=== PATIENT | female | born 1960 | race Caucasian/White ===

== ENCOUNTER 2023-06-06 12:23 | Inpatient (IN) | payer MEDICARE, SELFPAY ==
[2023-06-06] VITALS (63 sets, daily range): BP systolic 91–130; BP diastolic 54–95; PULSE 68–140; RESP 1–38; TEMP 36.6–36.9; O2SAT 60–100; BMI 47.6
--- NOTE | 2023-06-06 12:30 | XRR_ITS ---
PROCEDURE INFORMATION: Exam: XR Chest Exam date and time: 06/06/2023 12:38 PM Age: 63 years old Clinical indication: Cough and dyspnea; Additional info: Dyspnea/cough TECHNIQUE: Imaging protocol: Radiologic exam of the chest. Views: 1 view. COMPARISON: No relevant prior studies available. FINDINGS: Lungs: Unremarkable. No consolidation. Pleural spaces: Unremarkable. No pleural effusion. No pneumothorax. Heart/Mediastinum: Mild cardiomegaly. Diaphragm: There is eventration of the right hemidiaphragm. Bones/joints: Unremarkable. XR/XR chest 1V portable [id number] IMPRESSION: No acute findings. Mild cardiomegaly
[2023-06-06 13:01] LABS: Basophils % 0.1 %; Eosinophils # 0.1 10^3/uL (0.0-0.8); Eosinophils % 0.7 %; Hematocrit 39.7 % (36-47); Lymphocytes # 0.9 10^3/uL (0.8-4.8); Lymphocytes % 8.6 %; Mean Corpuscular HGB Conc 25.4 g/dL (30-55); Mean Corpuscular Hemoglobin 27.2 pg (27-33); Mean Corpuscular Volume 106.7 fl (85-98); Mean Platelet Volume 10.9 fL (7.4-10.4); Monocytes # 0.6 10^3/uL (0.2-0.9); Monocytes % 5.9 %; Neutrophils # 8.39 10^3/uL (1.8-7.7); Nucleated Red Blood Cells % 0 %; Platelet Count 218 10^3/cmm (157-399); Red Blood Count 3.72 10^6/uL (3.85-5.65); Red Cell Distribution Width 16.2 % (12.1-15.1); White Blood Count 9.99 10^3/uL (3.29-11.43)
[2023-06-06] MEDS: ipratropium-albuterol 3 mL Neb INHALATION ×2 (13:06→13:42)
[2023-06-06 13:12] LABS: ABG PH Result 7.33 (7.35-7.45); Arterial Blood Gas Hematocrit 31.2 % (37-47); Base Excess ABG 26.5 mmol/L (-2.0-2.0); Blood Gas Allen Test Pos; Blood Gas Sample Type Arterial; Carboxyhemoglobin 2.5 %THgb (0.4-20.1); HCO3 ABG 57.2 mmol/L (22-26); HGB O2 Sat 88.9 % (95-100); Ionized Calcium Level - ABG 1.2 mmol/L (1.1-1.4); Methemoglobin 0.1 % (0.4-1.5); Oxygen Saturation ABG 91.3; PO2 ABG 59.7 mmHg (80.0-100.0); Potassium Level - ABG 3.8 mmol/L (3.5-5.0); Total Hemoglobin 10.2 g/dL (12-16)
[2023-06-06 13:13] LABS: Alveolar-Arterial Oxygen Gradi 5.7 mmHg (5-10); Blood Gas Operator Identificat MONRO; Blood Gas Sample Site Brachial, left; Oxygen Device NC; PO2 FiO2 Ratio Arterial Blood 0
[2023-06-06 13:19] LABS: Alanine Aminotransferase 12 U/L (0-33); Albumin Level 3.6 g/dL (3.5-5.2); Alkaline Phosphatase 88 U/L (35-105); Aspartate Amino Transferase 17 U/L (0-32); Blood Urea Nitrogen 16 mg/dL (8-23); Calcium 9.6 mg/dL (8.5-10.5); Chloride 88 mmol/L (98-107); Glomerular Filtration Rate 101.3 mL/min (90-130); Glucose 115 mg/dL (65-115); Osmolality Calculated 296 mOsm/kg (285-295); Potassium 4.2 mmol/L (3.5-5.1); Sodium 142 mmol/L (136-145); Total Bilirubin 0.5 mg/dL (0.15-1.2); Total Protein 6.6 g/dL (6.6-8.7)
--- NOTE | 2023-06-06 13:19 | W.ED.ARRPALP ---
HPI - Arrhythmia/Palpitations General: Chief Complaint: Weakness Stated Complaint: Weakness, SOB Time Seen by Provider: 06/06/23 12:29 Source: patient Mode of arrival: EMS History of Present Illness: 63-year-old female presents emergency [facility] weakness shortness of breath. She had been dozes off Lethargic at the [facility] arrival here she is difficult to arouse and off during the course of conversation. She denies chest or abdominal pain. She has been sick recently. COVID testing done at the [facility] was negative. She is chronically on oxygen they have been increasing in the last 2 days. Associated symptoms: Reports cough and short of breath Review of Systems General: Reports: ROS unobtainable due to mental status Physical Exam Const: GENERAL APPEARANCE: cooperative and comfortable ORIENTATION/CONSCIOUSNESS: Yes awake, Yes oriented to person, Yes oriented to place and Yes oriented to time HENMT: COMMON NORMALS: normocephalic, atraumatic and hearing grossly normal bilaterally HEAD & SCALP: normocephalic and atraumatic Resp: EFFORT & INSPECTION: Yes abnormal respiratory pattern, Yes respiratory distress and Yes decreased respiratory effort AUSCULTATION: rales and wheezes Cardio: COMMON NORMALS: regular rate, regular rhythm and No murmurs present (Cardio) RATE: regular rate RHYTHM: regular rhythm GI: COMMON NORMALS: Soft to palpation and No hepatosplenomegaly present AUSCULTATION: Yes normoactive bowel sounds PALPATION: Yes Soft to palpation, No Tenderness to palpation present (GI), No Guarding due to palpation present (GI) and Yes No hepatosplenomegaly present Extremity: COMMON NORMALS: normal to inspection, capillary refill normal, no clubbing, cyanosis or edema, no calf tenderness and no pedal edema Neuro: SENSORIUM/ORIENTATION: Yes oriented to person, Yes oriented to place and Yes oriented to time Skin: COMMON NORMALS: no rashes or lesions noted GENERAL SKIN EXAM: no rashes or lesions noted Course Vital Signs: Vital signs: Vital Signs Pulse Rate 111 H 06/06/23 15:25 Respiratory Rate 16 06/06/23 15:25 Blood Pressure 126/75 06/06/23 15:25 Pulse Oximetry 90 06/06/23 15:25 Oxygen Delivery Me thod BiPAP 06/06/23 15:15 Oxygen Flow Rate 3 06/06/23 13:06 Fraction of Inspir ed Oxygen 40 06/06/23 15:15 MDM - Arrhythmia/Palpitations Medical Decision Making Acute on chronic hypercapnic respiratory failure with A-fib with labs and imaging reviewed as found in the chart. RVR. Patient lists being on Coumadin but her INR is normal. She is quite lethargic initially improved slightly after an hour on BiPAP and her PCO2 went from 108 down to 78. PO2 however is still low we increased her FiO2. We have treated her A-fib with Cardizem. Normally she is on sotalol. Believe she has a right lower lobe pneumonia as well subtle opacity on her chest x-ray. Will cover her with IV antibiotics. Discussed with hospitalist orders written Medical Records I reviewed the patient's medical records. Lab Data I reviewed the patient's lab results. 06/06/23 12:55 06/06/23 12:55 Radiology Impressions Chest X-Ray 06/06/23 12:30 IMPRESSION: No acute findings. Mild cardiomegaly Laboratory Results WBC 9.99 10^3/uL (3.29-11.43) 06/06/23 12:55 RBC 3.72 10^6/uL (3.85-5.65) L 06/06/23 12:55 Hgb 10.10 g/dL (11.27-16.99) L 06/06/23 12:55 Hct 39.7 % (36-47) 06/06/23 12:55 MCV 106.7 fl (85-98) H 06/06/23 12:55 MCH 27.2 pg (27-33) 06/06/23 12:55 MCHC 25.4 g/dL (30-55) L 06/06/23 12:55 RDW 16.2 % (12.1-15.1) H 06/06/23 12:55 Plt Count 218 10^3/cmm (157-399) 06/06/23 12:55 MPV 10.9 fL (7.4-10.4) H 06/06/23 12:55 Neut % (Auto) 84.0 % 06/06/23 12:55 Lymph % (Auto) 8.6 % 06/06/23 12:55 [place] % (Auto) 5.9 % 06/06/23 12:55 Eos % (Auto) 0.7 % 06/06/23 12:55 Baso % (Auto) 0.1 % 06/06/23 12:55 Neut # (Auto) 8.39 10^3/uL (1.8-7.7) H 06/06/23 12:55 Lymph # (Auto) 0.9 10^3/uL (0.8-4.8) 06/06/23 12:55 [place] # (Auto) 0.6 10^3/uL (0.2-0.9) 06/06/23 12:55 Eos # (Auto) 0.1 10^3/uL (0.0-0.8) 06/06/23 12:55 Baso # (Auto) 0.0 10^3/uL (0.0-0.1) 06/06/23 12:55 Nucleated RBC % (auto) 0 % 06/06/23 12:55 Nucleated RBCs # 0.0 /100WBC 06/06/23 12:55 PT 14.30 SECONDS (12.1-14.9) 06/06/23 12:55 INR 1.07 (0.8-1.2) 06/06/23 12:55 D-Dimer 0.43 ug/mLFEU (0-0.59) 06/06/23 12:55 Specimen Type Arterial 06/06/23 14:36 Sample Site Brachial, right 06/06/23 14:36 ABG pH 7.46 (7.35-7.45) H 06/06/23 14:36 ABG pCO2 78.9 mmHg (35-45) H* 06/06/23 14:36 ABG pO2 49.2 mmHg (80.0-100.0) L 06/06/23 14:36 ABG PO2/FiO2 Ratio 0 06/06/23 14:36 ABG HCO3 55.6 mmol/L (22-26) H 06/06/23 14:36 ABG O2 Saturation 89.4 06/06/23 14:36 ABG Base Excess 27.4 mmol/L (-2.0-2.0) H 06/06/23 14:36 [place]ro Test Pos 06/06/23 14:36 A-a O2 Gradient 9.5 mmHg (5-10) 06/06/23 14:36 Hematocrit 32.0 % (37-47) L 06/06/23 14:36 Hgb O2 Saturation 87.0 % (95-100) L 06/06/23 14:36 Carboxyhemoglobin 2.5 %THgb (0.4-20.1) 06/06/23 14:36 Methemoglobin 0.2 % (0.4-1.5) L 06/06/23 14:36 Total Hemoglobin 10.4 g/dL (12-16) L 06/06/23 14:36 Sodium 142.0 mmol/L (131-143) 06/06/23 14:36 Potassium 4.0 mmol/L (3.5-5.0) 06/06/23 14:36 Glucose 108.0 mg/dL (70-115) 06/06/23 14:36 Ionized Calcium 1.2 mmol/L (1.1-1.4) 06/06/23 14:36 O2 Delivery Device Bipap 06/06/23 14:36 O2 Liters/Min 3.0 % 06/06/23 13:00 FiO2 30.0 % 06/06/23 14:36 Tidal Volume 0.50 06/06/23 14:36 PEEP 10.0 cmH20 06/06/23 14:36 Social Service Technician ID [place] 06/06/23 14:36 Sodium 142 mmol/L (136-145) 06/06/23 12:55 Potassium 4.2 mmol/L (3.5-5.1) 06/06/23 12:55 Chloride 88 mmol/L (98-107) L 06/06/23 12:55 Carbon Dioxide > 54 mmol/L (22-29) H* 06/06/23 12:55 Anion Gap 4.2 (5-19) L 06/06/23 12:55 BUN 16 mg/dL (8-23) 06/06/23 12:55 Creatinine 0.6 mg/dL (0.5-0.9) 06/06/23 12:55 GFR Calculation 101.3 mL/min (90-130) 06/06/23 12:55 Glucose 115 mg/dL (65-115) 06/06/23 12:55 Calculated Osmolality 296 mOsm/kg (285-295) H 06/06/23 12:55 Lactic Acid 0.7 mmol/L (0.5-2.2) 06/06/23 12:55 Calcium 9.6 mg/dL (8.5-10.5) 06/06/23 12:55 Total Bilirubin 0.5 mg/dL (0.15-1.2) 06/06/23 12:55 AST 17 U/L (0-32) 06/06/23 12:55 ALT 12 U/L (0-33) 06/06/23 12:55 Alkaline Phosphatase 88 U/L (35-105) 06/06/23 12:55 Troponin T Baseline 13 ng/L (0-10) H 06/06/23 12:55 NT-Pro-B Natriuret Pep 4002 pg/mL (0-125) H 06/06/23 12:55 Total Protein 6.6 g/dL (6.6-8.7) 06/06/23 12:55 Albumin 3.6 g/dL (3.5-5.2) 06/06/23 12:55 Globulin 3.0 g/dL (1.3-4.6) 06/06/23 12:55 Procalcitonin 0.02 ng/mL (0-0.5) 06/06/23 12:55 All radiology interpretation(s) finalized by discharge Discharge Plan Discharge Patient Disposition: Admitted As Inpatient Clinical Impression: Acute hypoxic on chronic hypercapnic respiratory failure, Anemia, Pneumonia Condition: Stable Prescriptions: No Action sotalol 160 mg tablet 160 mg PO Q12H atorvastatin 40 mg tablet 40 mg PO BEDTIME bupropion HCl 150 mg tablet sustained-release 12 hr 150 mg PO BID albuterol sulfate 2.5 mg /3 mL (0.083 %) solution for nebulization 2.5 mg inhalation Q6H PRN (Reason: Shortness Of Breath) warfarin 5 mg tablet 5 mg PO DAILY bumetanide 1 mg Tablet 2 mg PO BID PRN (Reason: Edema) ipratropium bromide 0.02 % solution See Rx Instructions .ROUTE .COMPLEX Rx Instructions: INHALE 1 VIAL IN NEBULIZER EVERY 12 HOURS NEEDED FOR SHORTNESS OF BREATH Referrals: Kilo Dunham [Primary Care Provider] - Coding Level of Care Code ED Accounting Representative for [facility] Sara
[2023-06-06] MEDS: dexamethasone 10 mg/mL INJ IM (13:21)
--- NOTE | 2023-06-06 13:25 | PC.PHAR ---
pt unable to verify medications-pt brought in medication bottles-pt brought in bumetanide 1mg take 2 tabs (2mg) bid rx bottle dated 09/21/2020-shawna states they filled tizanidine 2mg take 2 tabs (4mg) po hs filled on 02/02/23 90d/s and gabapentin 300mg tid filled 02/02/23 30d/s shawna states they have refills but states not filled for the pt recently-ext shows diltiazem cd 180mg/24 cap filled 02/04/23 90d/s #90 from [facility] pt didnt bring that medication bottle in-medications entered are from med bottles pt brought in and ext med history showing the neb meds-
[2023-06-06 13:45] LABS: Anion Gap 4.2 (5-19)
[2023-06-06] MEDS: dilTIAZem 5 mg/mL SDV 5 mL 10 MG IVP (13:57)
[2023-06-06] MEDS: dilTIAZem 100 MG in sodium chloride 0.9% (add-van) 100 ML IV (14:14)
[2023-06-06 14:20] LABS: NT Pro B Type Natriuretic Pept 4002 pg/mL (0-125)
--- NOTE | 2023-06-06 14:40 | USCV_ITS ---
Colette Hernandez Age: 63 Gender: F : 1960 Exam Date: 06/06/2023 18:47 Ordering Phys: Temo Benavides MD Technologist: MORRIS [place] [facility] [place]: chronic O2 dependent [facility] patient presenting our ER with hypoxia, not oriented to time or place. no hx available. BP: 128 / 87 HR: 105 Rhythm: Atrial fibrillation Technical Quality: Poor MEASUREMENTS (Male / Female) Normal Values 2D ECHO LV Diastolic Diameter PLAX 5.2 cm 4.2 - 5.9 / 3.9 - 5.3 cm LV Systolic Diameter PLAX 4.2 cm IVS Diastolic Thickness 0.8 cm 0.6 - 1.0 / 0.6 - 0.9 cm IVS Systolic Thickness 1.1 cm LVPW Diastolic Thickness 1.3 cm 0.6 - 1.0 / 0.6 - 0.9 cm LVPW Systolic Thickness 1.3 cm LVOT Diameter 2.4 cm LV Ejection Fraction 2D Teich 39.4 % LV Ejection Fraction MOD 2C 30.8 % LV Ejection Fraction 2C AL 32.8 % LA Diameter 6.6 cm LA Width 6.2 cm LA Height 6.4 cm RA Width 5.3 cm RA Height 7.7 cm Aorta at Sinotubular Diameter 3.5 cm IVC Diameter 2.1 cm M-MODE Aortic Annulus Diameter 3.0 cm LA Ao Ratio MM 2.1 MV E Point Septal Separation 1.3 cm DOPPLER AV Peak Velocity 106.0 cm/s LVOT Peak Velocity 84.0 cm/s AV Area Cont Eq vti 3.1 cm squared AV Area Cont Eq pk 3.5 cm squared MV Area PHT 5.4 cm squared MV E' Velocity 51.0 cm/s Mitral E to MV E' Ratio 12.4 Mitral E to LV E' Lateral Ratio 14.1 Mitral E to LV E' Septal Ratio 11.1 TV Peak E Velocity 67.0 cm/s PV Peak Velocity 104.0 cm/s RV Acceleration Time 0.1 s RV Ejection Time 0.3 s RV AcT/ET 0.5 FINDINGS Left Ventricle Mildly increased left ventricular cavity size. Severely reduced LV systolic function. Estimated LVEF 30 to 35% with severe hypokinesis of anterior, anteroseptal and apical hypokinesis. Mild hypokinesis of anterolateral wall as well. Grade 2 diastolic dysfunction. Right Ventricle Mildly dilated right ventricle with mildly reduced RV systolic function. Right Atrium Moderately dilated Left Atrium Severely dilated Mitral Valve Thickened mitral valve. Mild mitral valve regurgitation. Aortic Valve Thickened aortic valve. No aortic valve stenosis. Trace aortic valve regurgitation. Tricuspid Valve Tricuspid valve not well visualized. Tricuspid regurgitation and gradient across the mitral valve could not be assessed properly. Pulmonic Valve Pulmonic valve not well visualized. Mild pulmonary valve regurgitation. Pericardium No pericardial effusion. Aorta Normal size aortic root and proximal ascending aorta. IVC Mildly dilated IVC with no respiratory change of IVC diameter. CONCLUSIONS Severe LV systolic dysfunction. Estimated LVEF 30 to 35% with severe hypokinesis of anterior, anteroseptal and apical segments. Mild hypokinesis of anterolateral wall. Grade 2 diastolic dysfunction. Mildly dilated RV with mildly reduced RV systolic function. Dilated RA and LA. Tricuspid valve gradient could not be assessed properly. IVC dilated with no respiratory change of IVC diameter, suggestive of increased pulmonary pressure which was not assessed properly. Kevon Angeles MD (Electronically Signed) Final Date: 07 June 2023 09:50 S
--- NOTE | 2023-06-06 14:46 | P.HP_ITS ---
Providers/Chief Complaint 2 Primary Care Provider: Kilo Dunham Chief Complaint: Weakness, SOB History of Present Illness History taken by patient's daughter and sister at bedside. Colette Hernandez is a 63 year old female with past medical history of COPD, atrial fibrillation with rapid ventricular response, lost to follow-up on home oxygen was brought into the ER by EMS today because of increasing confusion for the last 3 weeks, acutely over the last couple of days. On presentation to the ER patient was found to be extremely altered, somnolent in A-fib with RVR with pCO2 on ABG of more than 100 with respiratory acidosis of pH 7.33. Patient was placed on BiPAP. Hospitalist service was consulted for further management. Repeat ABG after being on BiPAP for couple of hours showed mixed metabolic alkalosis with respiratory acidosis with pH 7.46 pCO2 78.9. Patient was awake but not following commands and continued to be confused. Patient was on Cardizem drip of 5. Review of Systems 2 General: Reports: ROS unobtainable due to mental status Medications/Allergies Home Medications Medication Instructions Recorded Confirmed Last Taken Type albuterol sulfate 2.5 mg/3 mL 2.5 mg inhalation Q6H PRN 06/06/23 06/06/23 Unknown History (0.083 %) solution for nebulization Shortness Of Breath atorvastatin 40 mg tablet 40 mg PO BEDTIME 06/06/23 06/06/23 Unknown History bumetanide 1 mg tablet 2 mg PO BID PRN Edema 06/06/23 06/06/23 Unknown History bupropion HCl 150 mg tablet,12 hr 150 mg PO BID 06/06/23 06/06/23 Unknown History sustained-release ipratropium bromide 0.02 % See Rx Instructions .Route .COMPLEX 06/06/23 06/06/23 Unknown History solution for inhalation sotalol 160 mg tablet 160 mg PO Q12H 06/06/23 06/06/23 Unknown History warfarin 5 mg tablet 5 mg PO DAILY 06/06/23 06/06/23 Unknown History Allergies Allergy/AdvReac Type Severity Reaction Status Date / Time No Known Allergies Allergy Verified 06/06/23 12:28 PFSH Acute 2 PFSH: Medical History (Updated 06/06/23 @ 17:19 by Temo Benavides MD) Morbid obesity Atrial fibrillation with RVR On home oxygen therapy COPD (chronic obstructive pulmonary disease) Family History (Updated 06/06/23 @ 16:26 by Temo Benavides MD) Other Arrhythmia Atrial fibrillation CAD (coronary artery disease) Social History (Updated 06/06/23 @ 16:27 by Temo Benavides MD) Smoking and tobacco/nicotine status: former use of tobacco/nicotine Alcohol intake: never Substance/Drug Use: never Caregiver/support person: Yes Lives independently: Yes Household members: spouse and family Housing: House Marital status: Vitals/I&O/Wt Last Vital Signs Pulse 122 H 06/06/23 13:49 Resp 22 H 06/06/23 13:42 BP 130/90 06/06/23 13:24 Pulse Ox 93 06/06/23 13:45 O2 Del Method BiPAP 06/06/23 13:42 O2 Flow Rate 3 06/06/23 13:06 FiO2 30 06/06/23 13:45 Weight last 48 hrs Weight 133.81 kg Physical Exam 2 Narrative: General: No acute distress, AO x3, NC oxygen supplementation HEENT: PERRLA, pupils bilaterally equal and reactive Chest:Bronchial breath sounds b/l ,decreased air entry, equal good air entry bilaterally, no more fine basal crackles CVS: S1-S2 regular, no murmurs, no tachycardia, no gallops, no rubs Abdomen: Soft, nontender, no organomegaly, bowel sounds present, morbidly obese Neuro: No focal deficits, no facial deformity, AO x3, power 5/5 in all limbs Data 06/06/23 12:55 06/06/23 12:55 Micro: Microbiology 06/06/23 13:24 Blood Culture - Preliminary Blood SPECIMEN COLLECTED 06/06/23 13:20 Blood Culture - Preliminary Blood SPECIMEN COLLECTED A&P Assessment and plan (1) Acute on chronic respiratory failure with hypoxia and hypercapnia: (2) COPD (chronic obstructive pulmonary disease): (3) Pneumonia: (4) Atrial fibrillation with RVR: (5) Morbid obesity: (6) Metabolic alkalosis with respiratory acidosis: (7) Encephalopathy acute: Plan Altered mental status/encephalopathy: Most likely in setting of hypercapnia and hypoxia. Check urine drug screen. Acute on chronic hypoxic and hypercapnic respiratory failure: Most likely patient has baseline severe COPD. Do not have baseline CO2. Patient has respiratory acidosis with metabolic alkalosis with bicarb of more than 55 on admission BMP, pCO2 of 79. Oxygen supplementation keeping saturation over 88%. Continue with BiPAP ventilation. Repeat ABG in 3 hours. Ipratropium, Xopenex every 4 hours, Pulmicort twice daily. Solu-Medrol 40 mg every 6 hourly. Cannot rule out mild contraction alkalosis from dehydration currently. Start on D5 NS at 75 cc/h. Repeat BMP in 6 hours. Cannot rule out pneumonia. Check sputum culture, MRSA swab, respiratory viral panel. As patient is critically sick for now we will start on IV vancomycin, IV Zosyn and IV azithromycin. If patient remains hemodynamically stable and afebrile can transition over to antibiotics for community-acquired pneumonia. A-fib with RVR: Patient takes sotalol 160 twice daily at home, warfarin 5 mg oral daily. Check INR. Patient is currently NPO. Continue sotalol when possible. For now continue with Cardizem drip. 5 mg of IV metoprolol push. Will plan for transition to oral medications once patient is more awake. Start patient on heparin drip. Will transition over to DOAC's prior to discharge. Morbid obesity Goals of care discussion: Discussed in detail with patient's daughter at bedside. She is not aware of patient's CODE STATUS. Patient unfortunately is not able to make her medical decisions right now. Patient's next of kin is her who is also admitted in the ER and is being transferred to different hospital for psychiatric care. For now daughter is requesting patient to be full code. We did discuss that unfortunately because of her seemingly severe COPD if patient ends up being on ventilator there is a higher risk of her being ventilator dependent. Daughter and sister verbalized understanding. Protonix for PUD prophylaxis Heparin as above. NPO. Attestations 2 Medical Necessity Statement*: Admission for more than 2 midnights in ICU for management of acute on chronic hypoxic and hypercapnic respiratory failure, respiratory acidosis with metabolic alkalosis, A-fib with RVR Critical Care Time: The high probability of a clinically significant, sudden or life threatening deterioration of the patient's [pulmonary, cardiac, neurological] system(s) required my full and direct attention, intervention and personal management. The critical care time is as shown. This time is in addition to time spent performing any reported procedures but includes the following: [x] Data and vital sign review and interpretation [x] Patient assessment, examination and intervention [x] Documentation [x] Medication orders and management Coding Level of Care Code Critical Care >/= 30 minutes Critical care time (in minutes): 60 The high probability of a clinically significant, sudden or life threatening deterioration, as referenced in this documentation, required my full and direct attention, intervention and personal management. The critical care time shown is in addition to time spent performing any reported separately billable procedures and includes the following: [x] Data and vital sign review and interpretation [x ] Patient assessment, examination and intervention [x] Medication orders and management [x] Patient/Family updates as able [x] Care Coordination and Documentation. Diagnoses Acute on chronic respiratory failure with hypoxia and hypercapnia J96.21; J96.22 COPD (chronic obstructive pulmonary disease) J44.9 Pneumonia J18.9 Atrial fibrillation with RVR I48.91 Morbid obesity E66.01 Metabolic alkalosis with respiratory acidosis E87.4 Encephalopathy acute G93.40
--- NOTE | 2023-06-06 14:47 | ECG_ITS ---
[facility] Test Date: 2023-06-06 Pat Name: Colette Hernandez Department: Room: Gender: Female Plan Rep: : 1960 Requested By: Temo Benavides Order Number: [id number] Ha MD: Kevon Angeles M.D. Measurements Intervals [place] Rate: 117 P: 0 LA: 0 QRS: 75 QRSD: 95 T: 64 QT: 338 QTc: 473 Interpretive Statements ATRIAL FIBRILLATION WITH RAPID VENTRICULAR RESPONSE MINIMAL ST DEPRESSION [0.025+ mV ST DEPRESSION] ABNORMAL RHYTHM ECG No previous ECG available for comparison Electronically Signed On 06-06-2023 16:51:33 BAIL BONDSMAN by Kevon Angeles M.D. [email or web address] hospital[facility] [email or web address]/store/NU/[id number] f
[2023-06-06 14:48] LABS: ABG PH Result 7.46 (7.35-7.45); Base Excess ABG 27.4 mmol/L (-2.0-2.0); Blood Gas Allen Test Pos; Blood Gas Sample Type Arterial; Carboxyhemoglobin 2.5 %THgb (0.4-20.1); HCO3 ABG 55.6 mmol/L (22-26); Ionized Calcium Level - ABG 1.2 mmol/L (1.1-1.4); Methemoglobin 0.2 % (0.4-1.5); Oxygen Saturation ABG 89.4; PO2 ABG 49.2 mmHg (80.0-100.0); Total Hemoglobin 10.4 g/dL (12-16)
[2023-06-06 14:49] LABS: ABG PCO2 78.9 mmHg (35-45); Alveolar-Arterial Oxygen Gradi 9.5 mmHg (5-10); Blood Gas Operator Identificat MONRO; Blood Gas Sample Site Brachial, right; Oxygen Device BIPAP; PO2 FiO2 Ratio Arterial Blood 0
[2023-06-06 14:57] LABS: INR 1.07 (0.8-1.2)
[2023-06-06 14:58] LABS: D Dimer 0.43 ug/mLFEU (0-0.59)
[2023-06-06 15:01] LABS: Lactic Sepsis W/Reflex 0.7 mmol/L (0.5-2.2)
[2023-06-06 15:08] LABS: Procalcitonin 0.02 ng/mL (0-0.5)
[2023-06-06] MEDS: ipratropium 0.5 mg/2.5 mL Neb INHALATION ×2 (15:10→19:46)
[2023-06-06] MEDS: levalbuterol 0.63 mg/3 mL Neb INHALATION ×2 (15:10→19:46)
[2023-06-06 15:16] LABS: Troponin(5th) Baseline 13 ng/L (0-10)
[2023-06-06 15:32] LABS: Iron 51 ug/dL (37-145); Percent Saturation 15.4 % (20-50); Total Iron Binding Capacity 330 mcg/dl; Unsaturated Iron Binding 279 ug/dL (112-347); Vitamin B12 408 pg/mL (232-1245)
[2023-06-06 16:40] LABS: Add Urine Microscopic? YES; Bilirubin Urine Neg (Negative); Blood Urine Neg (Negative); Glucose Urine UA Norm (Normal); Ketones Urine Negative (Negative); Leukocyte Esterase Urine Negative (Negative); Nitrate Urine Negative (Negative); Protein Urine Neg (Negative); Specific Gravity, Urine 1.015 (1.005-1.030); Sulfosalicylic Acid Urine Negative (Negative); Urine Appearance Cloudy (CLEAR); Urine Color Yellow (Yellow); Urobilinogen Urine Norm (Negative); pH Urine 8 (5-7)
[2023-06-06 16:44] LABS: Amphetamines Screen Urine Negative (Negative); Barbiturates Screen Urine Negative (Negative); Benzodiazepines Screen Urine Negative (Negative); Cocaine Screen Urine Negative (Negative); Opiate Screen Urine Negative (Negative); PCP Screen Urine Negative (Negative); THC Screen Urine Negative (Negative)
[2023-06-06 16:55] LABS: Add Urine Culture? No; Amorphous Sediment Urine 2+ /hpf; Bacteria Urine TRACE /hpf; Mucus Urine 2+ /hpf; RBC Urine 0-4 /hpf (0-2); Renal Epithelial Cells Urine 0-4 /hpf; Squamous Epithelial Cell Urine 0-4 /hpf (0-5); Transitional Epi Cells Urine RARE /hpf
[2023-06-06] MEDS: metoprolol tartrate 1 mg/1 mL SDV 5 mL 5 MG IVP (17:19)
[2023-06-06] MEDS: methylPREDNISolone sod succ 40 mg/mL INJ IVP ×2 (17:51→21:49)
[2023-06-06] MEDS: pantoprazole 40 mg SDV IVP (17:52)
[2023-06-06] MEDS: levofloxacin-dextrose 5 % 750 MG/150 ML PREMIX 100 MG IV (17:55)
--- NOTE | 2023-06-06 17:58 | ECG_ITS ---
[facility] Test Date: 2023-06-06 Pat Name: Colette Hernandez Department: Room: 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 Measurements Intervals [place] Rate: 80 P: 0 CA: 0 QRS: 71 QRSD: 96 T: 58 QT: 388 QTc: 449 Interpretive Statements ATRIAL FIBRILLATION WITH ABERRANT CONDUCTION OR VENTRICULAR PREMATURE COMPLEXES MODERATE ST DEPRESSION [0.05+ mV ST DEPRESSION] Compared to ECG 06/06/2023 13:26:41 Ventricular premature complex(es) now present Aberrant conduction of supraventricular beat(s) now present ST (T wave) deviation still present Electronically Signed On 06-08-2023 17:12:58 EGG TRAYER by Kevon Angeles M.D. [id number]
[2023-06-06] MEDS: dextrose 5%-sod chloride 0.9% 1,000 ML 75 ML IV (18:02)
[2023-06-06] MEDS: sodium chloride 0.9% 500 ML 999 ML IV (18:04)
[2023-06-06 18:21] LABS: Adenovirus Not Detected (NOT DETECT); Chlamydia Pneumoniae Not Detected (NOT DETECT); Coronavirus 229E,HKU1,NL63,OC4 Not Detected (NOT DETECT); Human Metapneumovirus Not Detected (NOT DETECT); Human Rhinovirus/Enterovirus Not Detected (NOT DETECT); Influenza A Not Detected (NOT DETECT); Influenza A H1 Not Detected (NOT DETECT); Influenza A H1-2009 Not Detected (NOT DETECT); Influenza A H3 Not Detected (NOT DETECT); Influenza B Not Detected (NOT DETECT); Mycoplasma Pneumoniae Not Detected (NOT DETECT); Parainfluenza Virus Type 1 Not Detected (NOT DETECT); Parainfluenza Virus Type 2 Not Detected (NOT DETECT); Parainfluenza Virus Type 3 Not Detected (NOT DETECT); Parainfluenza Virus Type 4 Not Detected (NOT DETECT); Respiratory Syncytial Virus A Not Detected (NOT DETECT); Respiratory Syncytial Virus B Not Detected (NOT DETECT); SARS-COV-2 Not Detected (NOT DETECT)
[2023-06-06] MEDS: piperacillin-tazobactam 3.375 GM in sodium chloride 0.9% (plus) 50 ML IV (19:19)
--- NOTE | 2023-06-06 19:29 | PC.NURSE ---
Patient arrived to ICU 5pm. Midline placed per Dr. Benavides
[2023-06-06] MEDS: budesonide 0.5 mg/2 mL Neb INHALATION (19:46)
[2023-06-06] MEDS: sotalol 80 mg Tablet 160 MG PO (19:56)
[2023-06-06] MEDS: vancomycin 1,500 MG/300 ML PIGGYBACK 200 MG IV (19:57)
[2023-06-06 20:03] LABS: ABG PH Result 7.53 (7.35-7.45); Arterial Blood Gas Hematocrit 30.4 % (37-47); Base Excess ABG 25.7 mmol/L (-2.0-2.0); Blood Gas Allen Test Pos; Blood Gas Sample Type Arterial; Carboxyhemoglobin 1.8 %THgb (0.4-20.1); HCO3 ABG 51.9 mmol/L (22-26); HGB O2 Sat 92.9 % (95-100); Ionized Calcium Level - ABG 1.1 mmol/L (1.1-1.4); Methemoglobin 0.2 % (0.4-1.5); Oxygen Saturation ABG 94.8; Potassium Level - ABG 4.4 mmol/L (3.5-5.0); Total Hemoglobin 9.9 g/dL (12-16)
[2023-06-06] MEDS: heparin drip 25,000 UNIT/500 ML PREMIX 38 UNIT IV (20:11)
[2023-06-06] MEDS: heparin 5,000 unit/mL INJ 1 mL IV (20:35)
--- NOTE | 2023-06-06 21:38 | ECG_ITS ---
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 Measurements Intervals [place] Rate: 75 P: 0 DE: 0 QRS: 79 QRSD: 90 T: 80 QT: 422 QTc: 473 Interpretive Statements ATRIAL FIBRILLATION WITH ABERRANT CONDUCTION OR VENTRICULAR PREMATURE COMPLEXES NONSPECIFIC T-WAVE ABNORMALITY ABNORMAL RHYTHM ECG Compared to ECG 06/06/2023 17:58:03 No significant change Electronically Signed On 06-08-2023 17:03:46 CLIENT ACCOUNT REPRESENTATIVE by Kevon Angeles M.D. [email or web address] hospitalBlue[facility].Fliptu/store/OM/[id number]
[2023-06-06] MEDS: atorvastatin 40 mg Tablet PO (21:49)
[2023-06-06 22:17] LABS: Troponin 5 6HR 11.08 ng/L (0-10)
[2023-06-06 22:21] LABS: Troponin 5 6HR Delta -1.92 ng/L (0-12)
[2023-06-06 22:43] LABS: Oxygen Device BIPAP
[2023-06-07] VITALS (54 sets, daily range): BP systolic 80–197; BP diastolic 48–167; PULSE 48–123; RESP 15–42; TEMP 36.7–37.3; O2SAT 77–98; BMI 44.6
[2023-06-07] MEDS: ipratropium 0.5 mg/2.5 mL Neb INHALATION ×6 (00:04→20:28)
[2023-06-07] MEDS: levalbuterol 0.63 mg/3 mL Neb INHALATION ×6 (00:04→20:28)
[2023-06-07] MEDS: piperacillin-tazobactam 3.375 GM in sodium chloride 0.9% (plus) 50 ML IV ×3 (01:47→18:07)
[2023-06-07] MEDS: morphine 4 mg/mL SDV 1 mL 2 MG IVP (01:47)
[2023-06-07 02:59] LABS: Partial Thromboplastin Time 186.7 SECONDS (23.9-36.7)
--- NOTE | 2023-06-07 03:33 | PC.NURSE ---
Patient's PTT level was 186.7. Dr. Rizvi was contacted and he ordered to hold the Heparin for 4 hours and to re draw PTT after that.
[2023-06-07] MEDS: methylPREDNISolone sod succ 40 mg/mL INJ IVP ×4 (04:52→21:16)
[2023-06-07 05:26] LABS: Arterial Blood Gas Hematocrit 31.1 % (37-47); Base Excess ABG 21.9 mmol/L (-2.0-2.0); Blood Gas Sample Site Brachial, right; Blood Gas Sample Type Arterial; Carboxyhemoglobin 2.1 %THgb (0.4-20.1); HCO3 ABG 48.2 mmol/L (22-26); HGB O2 Sat 88.4 % (95-100); Ionized Calcium Level - ABG 1.2 mmol/L (1.1-1.4); Methemoglobin 0.3 % (0.4-1.5); Oxygen Device BIPAP; Oxygen Saturation ABG 90.5; PO2 ABG 52.7 mmHg (80.0-100.0); PO2 FiO2 Ratio Arterial Blood 0; Potassium Level - ABG 3.5 mmol/L (3.5-5.0); Total Hemoglobin 10.1 g/dL (12-16)
[2023-06-07 05:28] LABS: ABG PCO2 62.4 mmHg (35-45)
[2023-06-07 05:59] LABS: Basophils % 0.1 %; Hematocrit 34.4 % (36-47); Lymphocytes # 0.6 10^3/uL (0.8-4.8); Lymphocytes % 5.4 %; Mean Corpuscular HGB Conc 26.5 g/dL (30-55); Mean Corpuscular Volume 102.1 fl (85-98); Monocytes # 0.2 10^3/uL (0.2-0.9); Monocytes % 2.1 %; Neutrophils % 91.7 %; Nucleated Red Blood Cells % 0 %; Platelet Count 204 10^3/cmm (157-399); Red Blood Count 3.37 10^6/uL (3.85-5.65); Red Cell Distribution Width 16.7 % (12.1-15.1); White Blood Count 10.47 10^3/uL (3.29-11.43)
[2023-06-07 06:11] LABS: INR 1.21 (0.8-1.2)
[2023-06-07 06:18] LABS: Estmated Average Glucose 91; Hemoglobin A1C 4.8 % (4.0-6.0)
[2023-06-07 06:24] LABS: Alanine Aminotransferase 10 U/L (0-33); Albumin Level 3.1 g/dL (3.5-5.2); Alkaline Phosphatase 72 U/L (35-105); Aspartate Amino Transferase 16 U/L (0-32); Blood Urea Nitrogen 13 mg/dL (8-23); Calcium 8.9 mg/dL (8.5-10.5); Chloride 92 mmol/L (98-107); Cholesterol 108 mg/dL (0-200); Globulin 2.5 g/dL (1.3-4.6); Glomerular Filtration Rate 101.3 mL/min (90-130); Glucose 131 mg/dL (65-115); HDL Cholesterol 45 mg/dL (60-100); LDL Cholesterol Calculated 45 mg/dL (50-129); Magnesium 1.8 mg/dL (1.7-2.3); Osmolality Calculated 294 mOsm/kg (285-295); Phosphorus 1.6 mg/dL (2.5-4.5); Sodium 141 mmol/L (136-145); Total Bilirubin 0.6 mg/dL (0.15-1.2); Total Protein 5.6 g/dL (6.6-8.7); Triglycerides 90 mg/dL (0-150)
[2023-06-07 06:28] LABS: Procalcitonin 0.04 ng/mL (0-0.5)
[2023-06-07 06:34] LABS: Carbon Dioxide 44 mmol/L (22-29)
[2023-06-07 06:35] LABS: Anion Gap 8.5 (5-19); Potassium 3.5 mmol/L (3.5-5.1)
[2023-06-07 06:41] LABS: Folate Level 9.2 ng/mL (4.8-37.3)
[2023-06-07] MEDS: sotalol 80 mg Tablet 160 MG PO ×2 (06:53→18:04)
[2023-06-07] MEDS: budesonide 0.5 mg/2 mL Neb INHALATION ×2 (07:26→20:28)
[2023-06-07] MEDS: vancomycin 1,500 MG/300 ML PIGGYBACK 200 MG IV ×2 (07:43→21:06)
[2023-06-07 07:53] LABS: Partial Thromboplastin Time 25.7 SECONDS (23.9-36.7)
--- NOTE | 2023-06-07 09:12 | PC.SOCIAL ---
IMM Update Pg.2 of IMM Updated and reviewed with patient. Copy provided to patient, initialed and dated copy in chart.
[2023-06-07] MEDS: azithromycin 500 MG in sodium chloride 0.9% 250 ML 250 MG IV (09:24)
[2023-06-07] MEDS: dextrose 5%-sod chloride 0.9% 1,000 ML 75 ML IV (10:19)
[2023-06-07 13:13] LABS: ABG PCO2 56.5 mmHg (35-45); ABG PH Result 7.52 (7.35-7.45); Alveolar-Arterial Oxygen Gradi 10.5 mmHg (5-10); Arterial Blood Gas Hematocrit 30.5 % (37-47); Blood Gas Allen Test Pos; Blood Gas Operator Identificat GD; Blood Gas Sample Site Radial, right; Blood Gas Sample Type Arterial; Carboxyhemoglobin 1.8 %THgb (0.4-20.1); HCO3 ABG 46.5 mmol/L (22-26); HGB O2 Sat 88.4 % (95-100); Methemoglobin < 0.0 % (0.4-1.5); Oxygen Device NC; PO2 FiO2 Ratio Arterial Blood 0; Potassium Level - ABG 3.3 mmol/L (3.5-5.0)
[2023-06-07] MEDS: dilTIAZem 30 mg Tablet PO ×2 (15:04→21:08)
[2023-06-07] MEDS: acetaZOLAMIDE 250 mg Tablet 500 MG PO (15:04)
--- NOTE | 2023-06-07 15:05 | P.PN_ITS ---
Subjective 2 Subjective: No acute events overnight. Patient has remained hemodynamically stable and afebrile. Today morning seen with family ember at bedside. Patient tolerated BiPAP well overnight. Transitioned over to 3 L of oxygen supplementation early in the morning. Saturating well over 90%. Patient is slightly more awake today. Able to have conversation though slow to respond. She is awake and alert to self, being in hospital, reason for the hospital, being in ICU, date of . Asking for food. Denies any chest pain. States has been having back pain at home. Vitals/I&O/Wt Last Vital Signs Temp 99.1 F 06/07/23 07:30 Pulse 118 H 06/07/23 12:00 Resp 42 H 06/07/23 12:00 BP 148/94 06/07/23 12:00 Pulse Ox 93 06/07/23 12:00 O2 Del Method Nasal Cannula 06/07/23 11:15 O2 Flow Rate 2 06/07/23 11:15 FiO2 45 06/07/23 07:51 06/07/23 06/07/23 06/07/23 06:59 14:59 22:59 Intake Total 660.933 / 3478.957 5375 / 1550 Output Total 325 / 1425 Balance 335.933 / -72.817 1550 / 1550 Weight last 48 hrs Weight 125.645 kg Weight 125.645 kg Weight 133.81 kg Physical Exam 2 Narrative: General: No acute distress, AO x3, NC oxygen supplementation HEENT: PERRLA, pupils bilaterally equal and reactive Chest:Bronchial breath sounds b/l ,decreased air entry, equal good air entry bilaterally, no more fine basal crackles CVS: S1-S2 regular, no murmurs, no tachycardia, no gallops, no rubs Abdomen: Soft, nontender, no organomegaly, bowel sounds present, morbidly obese Neuro: No focal deficits, no facial deformity, AO x3, power 5/5 in all limbs Urinary Catheter Management: Veras: Cath Placed During This Visit: yes Reason for Continuing Indwelling Catheter: Accurate Measurement of Urinary Output in Critically Ill Patients Urinary Catheter Date of Insertion: 06/06/23 Data 06/07/23 04:57 06/07/23 04:57 Micro: Microbiology 06/07/23 11:27 Gram Stain - Final Sputum - Expectorated Sputum 06/06/23 13:20 Blood Culture - Preliminary Blood NEGATIVE TO DATE 06/06/23 13:24 Blood Culture - Preliminary Blood NEGATIVE TO DATE 06/06/23 16:20 Bacterial Antigens - Final Urine Kidney 06/06/23 16:20 Legionella Urinary Antigen - Final Unknown Source A&P Assessment and plan (1) Acute on chronic respiratory failure with hypoxia and hypercapnia: (2) COPD (chronic obstructive pulmonary disease): (3) Pneumonia: (4) Atrial fibrillation with RVR: (5) Morbid obesity: (6) Metabolic alkalosis with respiratory acidosis: (7) Encephalopathy acute: (8) Congestive heart failure: Qualifiers: Heart failure type: combined systolic and diastolic Heart failure chronicity: acute on chronic Qualified Code(s): I50.43 - Acute on chronic combined systolic (congestive) and diastolic (congestive) heart failure Plan Altered mental status/encephalopathy: Resolving. Most likely in setting of hypercapnia and hypoxia. Urine drug screen negative. Acute on chronic hypoxic and hypercapnic respiratory failure: Most likely patient has baseline severe COPD. Do not have baseline CO2. Patient has respiratory acidosis with metabolic alkalosis with slight improvement. Oxygen supplementation keeping saturation over 88%. Continue with Nasal cannula oxygen supplementation keeping saturation over 88. Repeat ABG in afternoon while being on nasal cannula. Plan for repeat ABG in AM. Ipratropium, Xopenex every 4 hours, Pulmicort twice daily. Solu-Medrol 40 mg every 6 hourly. Cannot rule out mild contraction alkalosis from dehydration currently. Start on D5 NS at 75 cc/h. Repeat BMP in afternoon. Also start on Diamox 500 mg oral daily. Cannot rule out pneumonia. Sputum culture collected, pending. MRSA swab pending. Respiratory viral panel negative. Urine Legionella, bacterial antigen negative. As patient is critically sick for now we will start on IV vancomycin, IV Zosyn. Stop azithromycin. A-fib with RVR: Patient takes sotalol 160 twice daily at home, warfarin 5 mg oral daily. INR subtherapeutic. Patient rate controlled. Continue with sotalol at home dose of 160 mg twice daily. Add Cardizem 30 mg 3 times daily. Uptitrate keeping heart rate less than 100. Continue with heparin drip. Will plan to transition to NOAC on discharge. Echocardiogram done shows an EF of 30 to 35% with severe hypokinesia of anterior, anteroseptal and apical segments, mild hypokinesia of anterolateral wall, diastolic dysfunction grade 2, mild dilated RA and RV with mildly reduced RV function. Will have to monitor for fluid overload. Patient does have new decreased LV function. Once patient is more stable can discuss about further ACS workup. Troponin cycle on admission negative. Continue with heparin drip as above. Morbid obesity Goals of care discussion: Discussed in detail with patient's daughter at bedside. She is not aware of patient's CODE STATUS. Patient unfortunately is not able to make her medical decisions right now. Patient's next of kin is her who is also admitted in the ER and is being transferred to different hospital for psychiatric care. For now daughter is requesting patient to be full code. We did discuss that unfortunately because of her seemingly severe COPD if patient ends up being on ventilator there is a higher risk of her being ventilator dependent. Daughter and sister verbalized understanding. 06/07: Again discussed goals of care in detail at this time with patient that she was more awake and alert. For now she would want to remain full code and let family decide further. Family would want to discuss further with the patient before making any changes. Protonix for PUD prophylaxis Heparin as above. NPO. Speech therapy. Advance diet as per speech evaluation. Plan for physical therapy evaluation within next 24 hours if patient remains stable. Attestations 2 Medical Necessity Statement*: Requires further hospitalization for management of acute on chronic hypoxic and hypercapnic respiratory failure in setting of COPD exacerbation, respiratory acidosis with metabolic alkalosis Diagnoses Acute on chronic respiratory failure with hypoxia and hypercapnia J96.21; J96.22 COPD (chronic obstructive pulmonary disease) J44.9 Pneumonia J18.9 Atrial fibrillation with RVR I48.91 Morbid obesity E66.01 Metabolic alkalosis with respiratory acidosis E87.4 Encephalopathy acute G93.40 Acute on chronic combined systolic and diastolic congestive heart failure I50.43 Heart failure type: combined systolic and diastolic Heart failure chronicity: acute on chronic
[2023-06-07] MEDS: heparin drip 25,000 UNIT/500 ML PREMIX 35 UNIT IV (15:20)
[2023-06-07 15:40] LABS: Partial Thromboplastin Time 76.6 SECONDS (23.9-36.7)
[2023-06-07] MEDS: pantoprazole 40 mg SDV IVP (18:05)
[2023-06-07] MEDS: atorvastatin 40 mg Tablet PO (21:08)
[2023-06-08] VITALS (49 sets, daily range): BP systolic 107–155; BP diastolic 51–105; PULSE 51–132; RESP 15–25; TEMP 36.5–36.8; O2SAT 80–98
[2023-06-08] MEDS: dextrose 5%-sod chloride 0.9% 1,000 ML 75 ML IV ×2 (00:29→14:58)
[2023-06-08] MEDS: levalbuterol 0.63 mg/3 mL Neb INHALATION ×7 (01:09→23:17)
[2023-06-08] MEDS: ipratropium 0.5 mg/2.5 mL Neb INHALATION ×7 (01:09→23:17)
[2023-06-08] MEDS: piperacillin-tazobactam 3.375 GM in sodium chloride 0.9% (plus) 50 ML IV ×3 (03:41→18:58)
[2023-06-08] MEDS: methylPREDNISolone sod succ 40 mg/mL INJ IVP ×3 (03:42→17:06)
[2023-06-08 05:54] LABS: Basophils % 0.1 %; Lymphocytes # 0.8 10^3/uL (0.8-4.8); Lymphocytes % 5.3 %; Mean Corpuscular HGB Conc 27.5 g/dL (30-55); Mean Corpuscular Hemoglobin 27.4 pg (27-33); Mean Corpuscular Volume 99.7 fl (85-98); Mean Platelet Volume 11.8 fL (7.4-10.4); Monocytes # 0.4 10^3/uL (0.2-0.9); Monocytes % 2.5 %; Neutrophils # 14.35 10^3/uL (1.8-7.7); Neutrophils % 91.4 %; Nucleated Red Blood Cells % 0 %; Platelet Count 198 10^3/cmm (157-399); Red Blood Count 3.61 10^6/uL (3.85-5.65); Red Cell Distribution Width 17.6 % (12.1-15.1); White Blood Count 15.71 10^3/uL (3.29-11.43)
[2023-06-08 06:07] LABS: INR 1.23 (0.8-1.2)
[2023-06-08 06:18] LABS: Alanine Aminotransferase 9 U/L (0-33); Alkaline Phosphatase 67 U/L (35-105); Anion Gap 11.1 (5-19); Aspartate Amino Transferase 15 U/L (0-32); Blood Urea Nitrogen 17 mg/dL (8-23); Calcium 8.8 mg/dL (8.5-10.5); Carbon Dioxide 36 mmol/L (22-29); Chloride 98 mmol/L (98-107); Globulin 2.7 g/dL (1.3-4.6); Glomerular Filtration Rate 84.8 mL/min (90-130); Glucose 150 mg/dL (65-115); Osmolality Calculated 298 mOsm/kg (285-295); Potassium 3.1 mmol/L (3.5-5.1); Sodium 142 mmol/L (136-145); Total Bilirubin 0.4 mg/dL (0.15-1.2); Total Protein 5.7 g/dL (6.6-8.7)
[2023-06-08] MEDS: sotalol 80 mg Tablet 160 MG PO ×2 (06:18→18:58)
[2023-06-08 06:19] LABS: Partial Thromboplastin Time 87.1 SECONDS (23.9-36.7)
[2023-06-08] MEDS: budesonide 0.5 mg/2 mL Neb INHALATION ×2 (07:25→19:56)
[2023-06-08] MEDS: heparin drip 25,000 UNIT/500 ML PREMIX 24 UNIT IV (08:29)
[2023-06-08 08:42] LABS: Vancomycin Trough 21.1 ug/mL (10-15)
--- NOTE | 2023-06-08 08:53 | ECG_ITS ---
[facility] Test Date: 2023-06-09 Pat Name: Colette Hernandez Department: Room: 250 Gender: Female [employer] Worker: Elissa Hawthornefus : 1960 Requested By: Temo Benavides Order Number: [id number] Ha MD: Spring Gongora M.D. Interpretive Statements NAME OF STUDY: LEXISCAN SESTAMIBI STRESS TEST INDICATION: New low EF PROCEDURE: At the baseline, the EKG revealed atrial fibrillation with a controlled ventricular response rate of [address]-T changes.. The baseline heart was 60 bpm with a blood pressue of 142/81 mm of Hg Lexiscan was infused over a period of 20 seconds. A total of 0.4 milligrams of Lexiscan was infused. The stress phase was continued for a total of 5 minutes. Heart rate at the end of the stress phase was 59 bpm with a blood pressure 130/62 mm of Hg. The EKG at the peak infusion revealed no significant changes. Occasional PVCs were noted. Sestamibi was injected 20 seconds after the Lexiscan infusion. Heart rate at the end of the recovery phase was 68 bpm with a blood pressure of 120/65 mm of Hg. CONCLUSION: 1. No significant EKG changes with the LexiScan infusion 2. No LexiScan induced chest pain or cardiac arrhythmia 3. Normal blood pressure and heart rate response 4. Sestamibi/sestamibi perfusion scan pending; see separate report. Electronically Signed On 06-22-2023 10:29:04 INSPECTOR OF [employer]EDGING by Spring Gongora M.D. [id number]
[2023-06-08] MEDS: acetaZOLAMIDE 250 mg Tablet 500 MG PO (09:34)
[2023-06-08] MEDS: dilTIAZem 30 mg Tablet PO ×3 (09:34→20:23)
[2023-06-08] MEDS: potassium chloride ER 20 mEq Tablet 40 MEQ PO (09:34)
[2023-06-08 10:53] LABS: ABG PCO2 55.5 mmHg (35-45); ABG PH Result 7.43 (7.35-7.45); Arterial Blood Gas Hematocrit 32.5 % (37-47); Base Excess ABG 10.7 mmol/L (-2.0-2.0); Blood Gas Allen Test Pos; Blood Gas Operator Identificat GD; Blood Gas Sample Site Radial, right; Blood Gas Sample Type Arterial; Carboxyhemoglobin 1.7 %THgb (0.4-20.1); HCO3 ABG 36.7 mmol/L (22-26); HGB O2 Sat 90.3 % (95-100); Ionized Calcium Level - ABG 1.2 mmol/L (1.1-1.4); Methemoglobin 0.4 % (0.4-1.5); Oxygen Device NC; Oxygen Saturation ABG 92.3; PO2 ABG 60.1 mmHg (80.0-100.0); PO2 FiO2 Ratio Arterial Blood 0; Potassium Level - ABG 2.8 mmol/L (3.5-5.0); Total Hemoglobin 10.6 g/dL (12-16)
[2023-06-08] MEDS: vancomycin 1,500 MG/300 ML PIGGYBACK 200 MG IV (12:41)
[2023-06-08 14:01] LABS: Partial Thromboplastin Time 41.9 SECONDS (23.9-36.7)
--- NOTE | 2023-06-08 16:37 | P.PN_ITS ---
Subjective 2 Subjective: No acute events overnight. Patient has remained hemodynamically stable and afebrile. Patient was able to tolerate BiPAP overnight. Today morning again seen on 3 to [place] supplementation sitting comfortably in chair. She denies any nausea, vomiting, headache. Patient is more awake and alert and clear in her thought process. Blood work appreciated for mild leukocytosis today, stable hemoglobin and CMP showing mild hypokalemia down to 3.1 Vitals/I&O/Wt Last Vital Signs Temp 97.7 F 06/08/23 09:00 Pulse 87 06/08/23 15:26 Resp 18 06/08/23 15:15 BP 123/101 06/08/23 10:30 Pulse Ox 92 06/08/23 15:15 O2 Del Method Nasal Cannula 06/08/23 15:15 O2 Flow Rate 3 06/08/23 15:15 FiO2 30 06/08/23 03:35 06/08/23 06/08/23 06/08/23 06:59 14:59 22:59 Intake Total 1396.766 / 3596.416 1382.651 / 1382.651 158.4 / 1541.051 Output Total 500 / 2800 800 / 800 Balance 896.766 / 796.416 582.651 / 582.651 158.4 / 741.051 Weight last 48 hrs Weight 125.645 kg Weight 125.645 kg Weight 125.645 kg Physical Exam 2 Narrative: General: No acute distress, AO x3, NC oxygen supplementation HEENT: PERRLA, pupils bilaterally equal and reactive Chest:Bronchial breath sounds b/l ,decreased air entry, equal good air entry bilaterally, no more fine basal crackles CVS: S1-S2 regular, no murmurs, no tachycardia, no gallops, no rubs Abdomen: Soft, nontender, no organomegaly, bowel sounds present, morbidly obese Neuro: No focal deficits, no facial deformity, AO x3, power 5/5 in all limbs Urinary Catheter Management: Veras: Cath Placed During This Visit: yes Reason for Continuing Indwelling Catheter: Accurate Measurement of Urinary Output in Critically Ill Patients Urinary Catheter Date of Insertion: 06/06/23 Data 06/08/23 05:10 06/08/23 05:10 Micro: Microbiology 06/07/23 11:27 Gram Stain - Final Sputum - Expectorated Sputum 06/06/23 13:20 Blood Culture - Preliminary Blood NEGATIVE TO DATE 06/06/23 13:24 Blood Culture - Preliminary Blood NEGATIVE TO DATE A&P Assessment and plan (1) Acute on chronic respiratory failure with hypoxia and hypercapnia: (2) COPD (chronic obstructive pulmonary disease): (3) Pneumonia: (4) Atrial fibrillation with RVR: (5) Morbid obesity: (6) Metabolic alkalosis with respiratory acidosis: (7) Encephalopathy acute: (8) Congestive heart failure: Qualifiers: Heart failure type: combined systolic and diastolic Heart failure chronicity: acute on chronic Qualified Code(s): I50.43 - Acute on chronic combined systolic (congestive) and diastolic (congestive) heart failure Plan Altered mental status/encephalopathy: Resolving. Most likely in setting of hypercapnia and hypoxia. Urine drug screen negative. Acute on chronic hypoxic and hypercapnic respiratory failure: Most likely patient has baseline severe COPD. Do not have baseline CO2. Plan for ABG today. Patient is at her baseline mentation. CO2 today if pH is normal would be more like her baseline. Metabolic alkalosis has resolved. Continue with IV hydration for now. Hold off on any further Diamox. Will continue to monitor for fluid overload given significantly low EF. Oxygen supplementation keeping saturation over 88%. Continue with Nasal cannula oxygen supplementation keeping saturation over 88. Repeat ABG right now for baseline CO2 levels. Plan for overnight pulse ox measures to see patient can qualify for CPAP at home. Ipratropium, Xopenex every 4 hours, Pulmicort twice daily. Wean Solu-Medrol to 40 mg every 12 hourly. Dehydration seems to be improving. Continue with D5 NS at 75 cc/h. Repeat BMP in AM. Replace potassium 40 mEq orally. Cannot rule out pneumonia. Though less likely now. Sputum culture collected, pending. MRSA swab pending. Respiratory viral panel negative. Urine Legionella, bacterial antigen negative. For now continue with vancomycin and Zosyn for overall 5-day course. Can discontinue vancomycin sooner if MRSA negative. A-fib with RVR: Patient takes sotalol 160 twice daily at home, warfarin 5 mg oral daily. INR subtherapeutic. Continue with sotalol 160 mg twice daily along with Cardizem 30 mg 3 times daily. Heart rate and blood pressure is well-controlled. Patient takes warfarin at home. States usually she is either sub or supratherapeutic and usually her levels are very difficult to maintain. She is agreeable to switching off to NOAC going forward so that she does not have to follow the levels. Will plan to discharge on Eliquis 5 mg twice daily. For now continue with heparin drip given concerns for ACS secondary to new low EF on echocardiogram. Echocardiogram done shows an EF of 30 to 35% with severe hypokinesia of anterior, anteroseptal and apical segments, mild hypokinesia of anterolateral wall, diastolic dysfunction grade 2, mild dilated RA and RV with mildly reduced RV function. Plan for Lexiscan stress test in a.m. for ACS workup. N.p.o. after midnight. Troponin cycle negative, no active chest pains. Aspirin 81 mg daily, continue on home dose of statin. Appreciate A1c, lipid panel. Morbid obesity Anxiety: Restart bupropion at 150 mg daily. Goals of care discussion: Discussed in detail with patient's daughter at bedside. She is not aware of patient's CODE STATUS. Patient unfortunately is not able to make her medical decisions right now. Patient's next of kin is her who is also admitted in the ER and is being transferred to different hospital for psychiatric care. For now daughter is requesting patient to be full code. We did discuss that unfortunately because of her seemingly severe COPD if patient ends up being on ventilator there is a higher risk of her being ventilator dependent. Daughter and sister verbalized understanding. 06/07: Again discussed goals of care in detail at this time with patient that she was more awake and alert. For now she would want to remain full code and let family decide further. Family would want to discuss further with the patient before making any changes. Discharge plan: Discussed in detail with the patient. We discussed that unfortunately her is also admitted to her different facility and she would need more help going forward to maintain her ADLs and rehab so that she does not end up having very multiple readmissions. Patient states she would really want to go home. For now will await PT evaluation before having a set plan. Likely home with home health versus SNF. Protonix for PUD prophylaxis Heparin as above. Started on dysphagia level 6 diet as per speech evaluation. N.p.o. after midnight. Plan for physical therapy evaluation within next 24 hours if patient remains stable. Attestations 2 Medical Necessity Statement*: Requires further hospitalization for management of acute on chronic hypoxic and hypercapnic respiratory failure in setting of COPD exacerbation, new congestive heart failure while ACS is worked up Diagnoses Acute on chronic respiratory failure with hypoxia and hypercapnia J96.21; J96.22 COPD (chronic obstructive pulmonary disease) J44.9 Pneumonia J18.9 Atrial fibrillation with RVR I48.91 Morbid obesity E66.01 Metabolic alkalosis with respiratory acidosis E87.4 Encephalopathy acute G93.40 Acute on chronic combined systolic and diastolic congestive heart failure I50.43 Heart failure type: combined systolic and diastolic Heart failure chronicity: acute on chronic
[2023-06-08] MEDS: pantoprazole 40 mg SDV IVP (17:06)
--- NOTE | 2023-06-08 18:42 | PC.NURSE ---
Report Given to Aicha RN on med surge. Patient transferred to room 250 bed 1 and received by Aicha. No belongings sent with patient, patient stated that she came in with nothing, and EMS removed clothes.
[2023-06-08] MEDS: atorvastatin 40 mg Tablet PO (20:23)
[2023-06-08 21:36] LABS: Partial Thromboplastin Time 52.5 SECONDS (23.9-36.7)
[2023-06-09] VITALS (15 sets, daily range): BP systolic 107–172; BP diastolic 65–96; PULSE 51–87; RESP 16–20; TEMP 36.4–36.8; O2SAT 93–98
[2023-06-09] MEDS: piperacillin-tazobactam 3.375 GM in sodium chloride 0.9% (plus) 50 ML IV ×3 (02:51→17:19)
[2023-06-09] MEDS: heparin drip 25,000 UNIT/500 ML PREMIX 32 UNIT IV (02:54)
[2023-06-09] MEDS: ipratropium 0.5 mg/2.5 mL Neb INHALATION ×5 (03:37→23:59)
[2023-06-09] MEDS: levalbuterol 0.63 mg/3 mL Neb INHALATION ×5 (03:37→23:59)
[2023-06-09] MEDS: dextrose 5%-sod chloride 0.9% 1,000 ML 75 ML IV (03:54)
[2023-06-09 04:15] LABS: Basophils % 0.1 %; Hematocrit 35.5 % (36-47); Lymphocytes # 0.7 10^3/uL (0.8-4.8); Lymphocytes % 4.3 %; Mean Corpuscular HGB Conc 28.2 g/dL (30-55); Mean Corpuscular Volume 99.4 fl (85-98); Mean Platelet Volume 12.4 fL (7.4-10.4); Monocytes # 0.6 10^3/uL (0.2-0.9); Monocytes % 3.7 %; Neutrophils # 14.45 10^3/uL (1.8-7.7); Neutrophils % 91.2 %; Nucleated Red Blood Cells % 0 %; Platelet Count 201 10^3/cmm (157-399); Red Blood Count 3.57 10^6/uL (3.85-5.65); Red Cell Distribution Width 17.3 % (12.1-15.1); White Blood Count 15.84 10^3/uL (3.29-11.43)
[2023-06-09 04:28] LABS: INR 1.27 (0.8-1.2)
[2023-06-09 04:36] LABS: Alanine Aminotransferase 8 U/L (0-33); Albumin Level 2.9 g/dL (3.5-5.2); Alkaline Phosphatase 61 U/L (35-105); Anion Gap 10.9 (5-19); Aspartate Amino Transferase 12 U/L (0-32); Blood Urea Nitrogen 18 mg/dL (8-23); Calcium 8.4 mg/dL (8.5-10.5); Carbon Dioxide 31 mmol/L (22-29); Chloride 102 mmol/L (98-107); Globulin 2.1 g/dL (1.3-4.6); Glomerular Filtration Rate 84.8 mL/min (90-130); Glucose 134 mg/dL (65-115); Osmolality Calculated 296 mOsm/kg (285-295); Sodium 141 mmol/L (136-145); Total Bilirubin 0.3 mg/dL (0.15-1.2)
[2023-06-09 04:53] LABS: Potassium 2.9 mmol/L (3.5-5.1)
[2023-06-09] MEDS: lidocaine 1% 5 ML in potassium chloride premix 100 ML 26.25 ML IV (05:43)
[2023-06-09] MEDS: sotalol 80 mg Tablet 160 MG PO ×2 (05:48→17:16)
[2023-06-09] MEDS: regadenoson 0.4 Mg/5 ml Syringe IVP (08:42)
--- NOTE | 2023-06-09 08:54 | NMCV_ITS ---
NM oxana perf SPECT r/s* [id number] Colette Hernandez Age: 63 Gender: F : 1960 Exam Date: 06/09/2023 08:54 Ordering Phys: Temo Benavides MD Technologist: FRANKIE Lawson Exam Location: [facility] Indications: CHEST PAIN STRESS TEST Please see separate stress test report in [facility] for full findings IMAGE PROTOCOL Rest/Stress 1 Lexiscan Day Radiopharmaceutical Dose (mCi) Administration Site Administered by Rest: Tc-99m 11.0 IV FRANKIE Hardin Sestamibi Stress:Tc-99m 33.0 IV FRANKIE Hardin Sestamibi Rest: 09-Jun-2023 60 Discovery 630 Stress: 09-Jun-2023 30 Discovery 630 0.4mg Lexiscan. Supine position only as patient was unable to lay prone. SPECT RESULTS Technical Quality: Excellent Raw Data Analysis: Normal Image Corrections: No attenuation or motion correction applied Summed Stress Score: 2 Summed Rest Score: 3 Summed Difference Score: 1 PERFUSION FINDINGS Small area of moderately decreased tracer uptake in the LV apex, with a subtle reversibility. Increased tracer uptake was noted in the right ventricular free wall FUNCTIONAL RESULTS (calculated via Gated SPECT) Stress Image LV EF (%): 56 Stress EDV (mL):98 TID: 0.97 Stress ESV (mL):43 FUNCTIONAL FINDINGS: Segmental wall motion analysis revealing no gross wall motion abnormalities IMPRESSIONS 1. Myocardial perfusion imaging revealing a very small area of moderately decreased aseptic in the LV apex with subtle reversibility, most likely artifactual. A subtle area of ischemia in the circumflex distribution cannot be excluded. Some features of right ventricular hypertrophy 2. Normal LV ejection fraction of 56% 3. LV wall motion analysis revealing no gross wall motion abnormalities. 4. LV volume, upper limit of normal. No similar previous studies are available for comparison Dr Spring Gongora MD [facility] (Electronically Signed) Final Date: 09 June 2023 10:23 S
[2023-06-09] MEDS: buPROPion SR (12 HR) 150 mg Tablet PO (10:02)
[2023-06-09] MEDS: aspirin 81 mg EC Tablet PO (10:02)
[2023-06-09] MEDS: potassium chloride ER 20 mEq Tablet 40 MEQ PO (10:03)
[2023-06-09] MEDS: vancomycin 1,500 MG/300 ML PIGGYBACK 200 MG IV (10:05)
[2023-06-09] MEDS: methylPREDNISolone sod succ 40 mg/mL INJ IVP (10:06)
--- NOTE | 2023-06-09 10:35 | P.PN_ITS ---
Subjective 2 Subjective: No acute events overnight. Patient has remained hemodynamically stable and afebrile. Today morning patient seen on 2 L oxygen supplementation sitting at the side of the bed without any acute complaints. Overnight used BiPAP. States she is feeling a lot better. Heart rate trending down to low 50s overnight. Patient underwent cardiac stress test today morning. Vitals/I&O/Wt Last Vital Signs Temp 97.6 F 06/09/23 04:00 Pulse 68 06/09/23 08:57 Resp 19 H 06/09/23 04:00 BP 120/65 06/09/23 08:57 Pulse Ox 96 06/09/23 04:00 O2 Del Method Nasal Cannula 06/09/23 04:00 O2 Flow Rate 3 06/09/23 03:45 FiO2 30 06/08/23 23:28 06/08/23 06/09/23 06/09/23 22:59 06:59 14:59 Intake Total 712.367 / 2295.018 1225.900 / 3520.918 Output Total 400 / 1200 Balance 312.367 / 9632.043 7705.900 / 2320.918 Weight last 48 hrs Weight 132.959 kg Weight 125.645 kg Physical Exam 2 Narrative: General: No acute distress, AO x3, NC oxygen supplementation HEENT: PERRLA, pupils bilaterally equal and reactive Chest:Bronchial breath sounds b/l ,decreased air entry, equal good air entry bilaterally, no more fine basal crackles CVS: S1-S2 regular, no murmurs, no tachycardia, no gallops, no rubs Abdomen: Soft, nontender, no organomegaly, bowel sounds present, morbidly obese Neuro: No focal deficits, no facial deformity, AO x3, power 5/5 in all limbs Urinary Catheter Management: Veras: Cath Placed During This Visit: yes Reason for Continuing Indwelling Catheter: Accurate Measurement of Urinary Output in Critically Ill Patients Urinary Catheter Date of Insertion: 06/06/23 Data 06/09/23 03:00 06/09/23 03:00 Micro: Microbiology 06/07/23 11:27 Gram Stain - Final Sputum - Expectorated Sputum Sputum Culture - Preliminary A&P Assessment and plan (1) Acute on chronic respiratory failure with hypoxia and hypercapnia: (2) COPD (chronic obstructive pulmonary disease): (3) Pneumonia: (4) Atrial fibrillation with RVR: (5) Morbid obesity: (6) Metabolic alkalosis with respiratory acidosis: (7) Encephalopathy acute: (8) Congestive heart failure: Qualifiers: Heart failure type: combined systolic and diastolic Heart failure chronicity: acute on chronic Qualified Code(s): I50.43 - Acute on chronic combined systolic (congestive) and diastolic (congestive) heart failure Plan Altered mental status/encephalopathy: Resolved. Most likely in setting of hypercapnia and hypoxia. Urine drug screen negative. Acute on chronic hypoxic and hypercapnic respiratory failure:Resolved. Most likely patient has baseline severe COPD. Patient seems to be at her baseline respiratory status now. Metabolic alkalosis and respiratory acidosis have resolved. Patient eating well. Hold off on any further diuresis and IV fluids for now. Oxygen supplementation keeping saturation over 88%. Continue with Nasal cannula oxygen supplementation keeping saturation over 88. Plan for repeat overnight pulse oximetry. Pulse oximetry done last night not done completely. Will request to be started on baseline oxygen supplementation to report hypoxia and then plan for BiPAP overnight. Case management alerted. Ipratropium, Xopenex every 4 hours, Pulmicort twice daily. Wean Solu-Medrol to 40 mg daily. Patient shows hypokalemia. Replace 40 mg orally. Cannot rule out pneumonia. Though less likely now. Sputum culture collected, pending. MRSA swab pending. Respiratory viral panel negative. Urine Legionella, bacterial antigen negative. For now continue with vancomycin and Zosyn for overall 5-day course. Can discontinue vancomycin sooner if MRSA negative. A-fib with RVR: Patient takes sotalol 160 twice daily at home, warfarin 5 mg oral daily. INR subtherapeutic. Overnight patient has bradycardia. Continue with home dose of sotalol. Stop Cardizem for now Stop heparin drip and switch to Eliquis 5 mg twice daily. Echocardiogram done shows an EF of 30 to 35% with severe hypokinesia of anterior, anteroseptal and apical segments, mild hypokinesia of anterolateral wall, diastolic dysfunction grade 2, mild dilated RA and RV with mildly reduced RV function. Lexiscan stress test negative for acute ischemia. Patient denies any chest pain. Continue with aspirin 81 mg daily, statin 40 mg at bedtime. Uptitrate guideline based medical therapy as per patient's hemodynamics. Heart rate controlled on sotalol. Added losartan. Morbid obesity Anxiety: Restart bupropion at 150 mg daily. Goals of care discussion: Discussed in detail with patient's daughter at bedside. She is not aware of patient's CODE STATUS. Patient unfortunately is not able to make her medical decisions right now. Patient's next of kin is her who is also admitted in the ER and is being transferred to different hospital for psychiatric care. For now daughter is requesting patient to be full code. We did discuss that unfortunately because of her seemingly severe COPD if patient ends up being on ventilator there is a higher risk of her being ventilator dependent. Daughter and sister verbalized understanding. 06/07: Again discussed goals of care in detail at this time with patient that she was more awake and alert. For now she would want to remain full code and let family decide further. Family would want to discuss further with the patient before making any changes. Discharge plan: Discussed in detail with the patient. She would like to go home with home health. Case management alerted. The patient remains stable at baseline will plan to discharge within next 24 hours with the possibility of BiPAP/ CPAP at home. Doing pulse overnight oximetry. Protonix for PUD prophylaxis Heparin as above. Dysphagia level 6 diet as per speech evaluation. Physical therapy Attestations 2 Medical Necessity Statement*: Requires further hospitalization for management of acute on chronic hypoxic and hypercapnic respiratory failure in setting of COPD exacerbation while outpatient BiPAP and safe discharge planning is sought. Diagnoses Acute on chronic respiratory failure with hypoxia and hypercapnia J96.21; J96.22 COPD (chronic obstructive pulmonary disease) J44.9 Pneumonia J18.9 Atrial fibrillation with RVR I48.91 Morbid obesity E66.01 Metabolic alkalosis with respiratory acidosis E87.4 Encephalopathy acute G93.40 Acute on chronic combined systolic and diastolic congestive heart failure I50.43 Heart failure type: combined systolic and diastolic Heart failure chronicity: acute on chronic
--- NOTE | 2023-06-09 10:42 | PC.SOCIAL ---
IMM Update pg 2 of IMM updated and reviewed w/ patient. Copy provided and copy dated, initialed and placed in chart.
[2023-06-09] MEDS: lisinopril 5 mg Tablet PO (11:13)
[2023-06-09 11:37] LABS: Partial Thromboplastin Time 22.9 SECONDS (23.9-36.7)
[2023-06-09] MEDS: apixaban 5 mg Tablet PO ×2 (13:25→22:12)
[2023-06-09] MEDS: pantoprazole 40 mg SDV IVP (17:18)
[2023-06-09] MEDS: budesonide 0.5 mg/2 mL Neb INHALATION (20:25)
[2023-06-09] MEDS: atorvastatin 40 mg Tablet PO (22:12)
[2023-06-09] MEDS: acetaminophen 325 mg Tablet 650 MG PO (23:40)
[2023-06-10] VITALS (9 sets, daily range): BP systolic 108–126; BP diastolic 53–71; PULSE 57–77; RESP 16–18; TEMP 36.4–36.6; O2SAT 94–98; BMI 47.9; BMI 47.2
[2023-06-10] MEDS: vancomycin 1,500 MG/300 ML PIGGYBACK 200 MG IV (00:59)
[2023-06-10] MEDS: piperacillin-tazobactam 3.375 GM in sodium chloride 0.9% (plus) 50 ML IV ×2 (02:42→11:08)
[2023-06-10] MEDS: ipratropium 0.5 mg/2.5 mL Neb INHALATION ×3 (03:18→12:21)
[2023-06-10] MEDS: levalbuterol 0.63 mg/3 mL Neb INHALATION ×3 (03:18→12:21)
[2023-06-10 04:55] LABS: Basophils % 0.1 %; Hematocrit 37.1 % (36-47); Lymphocytes # 0.8 10^3/uL (0.8-4.8); Lymphocytes % 5.6 %; Mean Corpuscular HGB Conc 27.2 g/dL (30-55); Mean Corpuscular Hemoglobin 27.6 pg (27-33); Mean Corpuscular Volume 101.4 fl (85-98); Mean Platelet Volume 12.1 fL (7.4-10.4); Monocytes # 0.9 10^3/uL (0.2-0.9); Monocytes % 6.8 %; Neutrophils # 11.79 10^3/uL (1.8-7.7); Neutrophils % 86.8 %; Nucleated Red Blood Cells % 0 %; Platelet Count 170 10^3/cmm (157-399); Red Blood Count 3.66 10^6/uL (3.85-5.65); Red Cell Distribution Width 17.2 % (12.1-15.1); White Blood Count 13.58 10^3/uL (3.29-11.43)
[2023-06-10 05:08] LABS: Alanine Aminotransferase 11 U/L (0-33); Albumin Level 2.9 g/dL (3.5-5.2); Alkaline Phosphatase 55 U/L (35-105); Anion Gap 10.7 (5-19); Aspartate Amino Transferase 12 U/L (0-32); Blood Urea Nitrogen 18 mg/dL (8-23); Calcium 8.4 mg/dL (8.5-10.5); Carbon Dioxide 30 mmol/L (22-29); Chloride 107 mmol/L (98-107); Globulin 2.3 g/dL (1.3-4.6); Glomerular Filtration Rate 84.8 mL/min (90-130); Glucose 91 mg/dL (65-115); Osmolality Calculated 299 mOsm/kg (285-295); Potassium 3.7 mmol/L (3.5-5.1); Sodium 144 mmol/L (136-145); Total Bilirubin 0.3 mg/dL (0.15-1.2); Total Protein 5.2 g/dL (6.6-8.7)
[2023-06-10] MEDS: sotalol 80 mg Tablet 160 MG PO (05:50)
[2023-06-10] MEDS: budesonide 0.5 mg/2 mL Neb INHALATION (08:21)
[2023-06-10] MEDS: apixaban 5 mg Tablet PO (09:00)
[2023-06-10] MEDS: losartan 50 mg Tablet PO (09:00)
[2023-06-10] MEDS: buPROPion SR (12 HR) 150 mg Tablet PO (09:00)
[2023-06-10] MEDS: aspirin 81 mg EC Tablet PO (09:00)
[2023-06-10] MEDS: methylPREDNISolone sod succ 40 mg/mL INJ IVP (09:01)
[2023-06-10] MEDS: acetaminophen 325 mg Tablet 650 MG PO (11:57)
--- NOTE | 2023-06-10 12:30 | P.DS_ITS ---
Discharge Providers Date of Admission: 06/06/23 15:56 Date of Discharge: June 10, 2023 Attending Provider at Admission: Temo Benavides MD Attending Provider at Discharge: Temo Benavides MD Primary Care Provider: Kilo Dunham Diagnoses at Discharge Discharge Diagnosis (1) Acute on chronic respiratory failure with hypoxia and hypercapnia: Status: Acute (2) COPD (chronic obstructive pulmonary disease): Status: Acute (3) Pneumonia: Status: Acute (4) Atrial fibrillation with RVR: Status: Acute (5) Morbid obesity: Status: Acute (6) Metabolic alkalosis with respiratory acidosis: Status: Acute (7) Encephalopathy acute: Status: Acute (8) Congestive heart failure: Status: Acute Qualifiers: Heart failure chronicity: acute on chronic Heart failure type: combined systolic and diastolic Qualified Code(s): I50.43 - Acute on chronic combined systolic (congestive) and diastolic (congestive) heart failure Reason for Visit Reason for Visit: Weakness, SOB Brief History: History as per HPI: History taken by patient's daughter and sister at bedside. Colette Hernandez is a 63 year old female with past medical history of COPD, atrial fibrillation with rapid ventricular response, lost to follow-up on home oxygen was brought into the ER by EMS today because of increasing confusion for the last 3 weeks, acutely over the last couple of days. On presentation to the ER patient was found to be extremely altered, somnolent in A-fib with RVR with pCO2 on ABG of more than 100 with respiratory acidosis of pH 7.33. Patient was placed on BiPAP. Hospitalist service was consulted for further management. Repeat ABG after being on BiPAP for couple of hours showed mixed metabolic alkalosis with respiratory acidosis with pH 7.46 pCO2 78.9. Patient was awake but not following commands and continued to be confused. Patient was on Cardizem drip of 5. Hospital Course Hospital Course Patient was admitted to the hospital for evaluation and management of acute on chronic hypoxic and hypercapnic respiratory failure, respiratory acidosis with metabolic alkalosis and A-fib with RVR. On admission she was also found to be subtherapeutic for INR. She was started on broad-spectrum antibiotics, nebulization treatment and IV steroids. She was treated with noninvasive ventilation with BiPAP therapy. On admission there was also concern for dehydration and severe contraction alkalosis from intravascular depletion for which she was started on aggressive IV hydration. Patient responded well to the treatment and gradually came back to her baseline mentation and oxygen supplementation. She has been back to 1 to 2 L of oxygen supplementation on waking up, BiPAP as needed and every night for last 2 days. Patient is working with physical therapy. Overnight pulse oximetry study has been done. On admission she was found to be in A-fib with RVR for which she was started on oral Cardizem along with home dose of sotalol. Patient did develop bradycardia after which oral Cardizem was withheld. Anticoagulation was discussed in detail with the patient and she was agreeable for switching from warfarin to Eliquis. During admission echocardiogram was done which showed a new low EF of 30 to 35% with regional wall motion abnormality. To rule out ACS she underwent cardiac stress test on 06/08 which was negative for acute ischemia. Antihypertensives are uptitrated as per guideline directed medical therapy for congestive heart failure. Safe discharge plan were discussed in detail with the patient and she asked for discharged home with home health. She is been counseled in detail about lifestyle modification with congestive heart failure and COPD. Physical Exam Narrative: General: No acute distress, AO x3, NC oxygen supplementation HEENT: PERRLA, pupils bilaterally equal and reactive Chest:Bronchial breath sounds b/l ,decreased air entry, equal good air entry bilaterally, no more fine basal crackles CVS: S1-S2 regular, no murmurs, no tachycardia, no gallops, no rubs Abdomen: Soft, nontender, no organomegaly, bowel sounds present, morbidly obese Neuro: No focal deficits, no facial deformity, AO x3, power 5/5 in all limbs Urinary Catheter Management: Veras: Cath Placed During This Visit: yes Reason for Continuing Indwelling Catheter: Accurate Measurement of Urinary Output in Critically Ill Patients Urinary Catheter Date of Insertion: 06/06/23 Discharge Data Studies Completed and Pending Completed Studies During Hospitalization Category Date Time Status Sestamibi Stress Test Request Routine Exams 06/08/23 08:53 Draft XR chest 1V portable [id number] Stat Exams 06/06/23 12:30 Completed NM oxana perf SPECT r/s* [id number] Routine Nuc Med 06/09/23 08:54 Completed CV. echo complete* [id number] Routine Ultrasound 06/06/23 14:40 Completed Pending at discharge Category Date Time Status Blood Culture Stat Lab 06/06/23 13:24 Results Complete Blood Count w/Auto AM LABS Lab 06/11/23 04:00 Ordered Complete Blood Count w/Auto AM LABS Lab 06/12/23 04:00 Ordered Comprehensive Metabolic Panel AM LABS Lab 06/11/23 04:00 Ordered Comprehensive Metabolic Panel AM LABS Lab 06/12/23 04:00 Ordered MRSA [Methicillin Resistant S.aureu] Routine Lab 06/06/23 14:46 Received Vancomycin Trough Timed Lab 06/10/23 18:30 Ordered Radiology Impressions Chest X-Ray 06/06/23 12:30 IMPRESSION: No acute findings. Mild cardiomegaly Laboratory Results WBC 13.58 10^3/uL (3.29-11.43) H 06/10/23 04:10 RBC 3.66 10^6/uL (3.85-5.65) L 06/10/23 04:10 Hgb 10.10 g/dL (11.27-16.99) L 06/10/23 04:10 Hct 37.1 % (36-47) 06/10/23 04:10 MCV 101.4 fl (85-98) H 06/10/23 04:10 MCH 27.6 pg (27-33) 06/10/23 04:10 MCHC 27.2 g/dL (30-55) L 06/10/23 04:10 RDW 17.2 % (12.1-15.1) H 06/10/23 04:10 Plt Count 170 10^3/cmm (157-399) 06/10/23 04:10 MPV 12.1 fL (7.4-10.4) H 06/10/23 04:10 Neut % (Auto) 86.8 % 06/10/23 04:10 Lymph % (Auto) 5.6 % 06/10/23 04:10 [place] % (Auto) 6.8 % 06/10/23 04:10 Eos % (Auto) 0.0 % 06/10/23 04:10 Baso % (Auto) 0.1 % 06/10/23 04:10 Neut # (Auto) 11.79 10^3/uL (1.8-7.7) H 06/10/23 04:10 Lymph # (Auto) 0.8 10^3/uL (0.8-4.8) 06/10/23 04:10 [place] # (Auto) 0.9 10^3/uL (0.2-0.9) 06/10/23 04:10 Eos # (Auto) 0.0 10^3/uL (0.0-0.8) 06/10/23 04:10 Baso # (Auto) 0.0 10^3/uL (0.0-0.1) 06/10/23 04:10 Nucleated RBC % (auto) 0 % 06/10/23 04:10 Nucleated RBCs # 0.0 /100WBC 06/10/23 04:10 PT 16.30 SECONDS (12.1-14.9) H 06/09/23 03:00 INR 1.27 (0.8-1.2) H 06/09/23 03:00 APTT 22.9 SECONDS (23.9-36.7) L D 06/09/23 11:10 D-Dimer 0.43 ug/mLFEU (0-0.59) 06/06/23 12:55 Specimen Type Arterial 06/08/23 10:38 Sample Site Radial, right 06/08/23 10:38 ABG pH 7.43 (7.35-7.45) 06/08/23 10:38 ABG pCO2 55.5 mmHg (35-45) H 06/08/23 10:38 ABG pO2 60.1 mmHg (80.0-100.0) L 06/08/23 10:38 ABG PO2/FiO2 Ratio 0 06/08/23 10:38 ABG HCO3 36.7 mmol/L (22-26) H 06/08/23 10:38 ABG O2 Saturation 92.3 06/08/23 10:38 ABG Base Excess 10.7 mmol/L (-2.0-2.0) H 06/08/23 10:38 [place] Test Pos 06/08/23 10:38 A-a O2 Gradient 13.0 mmHg (5-10) H 06/08/23 10:38 Hematocrit 32.5 % (37-47) L 06/08/23 10:38 Hgb O2 Saturation 90.3 % (95-100) L 06/08/23 10:38 Carboxyhemoglobin 1.7 %THgb (0.4-20.1) 06/08/23 10:38 Methemoglobin 0.4 % (0.4-1.5) 06/08/23 10:38 Total Hemoglobin 10.6 g/dL (12-16) L 06/08/23 10:38 Sodium 141.0 mmol/L (131-143) 06/08/23 10:38 Potassium 2.8 mmol/L (3.5-5.0) L 06/08/23 10:38 Glucose 171.0 mg/dL (70-115) H 06/08/23 10:38 Ionized Calcium 1.2 mmol/L (1.1-1.4) 06/08/23 10:38 Respiration Rate 16.0 % 06/06/23 19:50 O2 Delivery Device Nc 06/08/23 10:38 O2 Liters/Min 3.0 % 06/08/23 10:38 FiO2 32.0 % 06/08/23 10:38 Tidal Volume 0.50 06/06/23 14:36 PEEP 8.0 cmH20 06/06/23 19:50 Mode BiPAP avaps 500, rr16, 06/06/23 19:50 Specimen Drawn By Zechariah 06/06/23 19:50 Tank Car Mechanic ID Gd 06/08/23 10:38 Sodium 144 mmol/L (136-145) 06/10/23 04:10 Potassium 3.7 mmol/L (3.5-5.1) 06/10/23 04:10 Chloride 107 mmol/L (98-107) 06/10/23 04:10 Carbon Dioxide 30 mmol/L (22-29) H 06/10/23 04:10 Anion Gap 10.7 (5-19) 06/10/23 04:10 BUN 18 mg/dL (8-23) 06/10/23 04:10 Creatinine 0.7 mg/dL (0.5-0.9) 06/10/23 04:10 GFR Calculation 84.8 mL/min (90-130) L 06/10/23 04:10 Glucose 91 mg/dL (65-115) 06/10/23 04:10 Estimat Average Glucose 91 06/07/23 04:57 Hemoglobin A1c 4.8 % (4.0-6.0) 06/07/23 04:57 Calculated Osmolality 299 mOsm/kg (285-295) H 06/10/23 04:10 Lactic Acid 0.7 mmol/L (0.5-2.2) 06/06/23 12:55 Calcium 8.4 mg/dL (8.5-10.5) L 06/10/23 04:10 Phosphorus 1.6 mg/dL (2.5-4.5) L 06/07/23 04:57 Magnesium 1.8 mg/dL (1.7-2.3) 06/07/23 04:57 Iron 51 ug/dL (37-145) 06/06/23 12:55 TIBC 330 mcg/dl 06/06/23 12:55 % Saturation 15.4 % (20-50) L 06/06/23 12:55 Unsat Iron Binding 279 ug/dL (112-347) 06/06/23 12:55 Total Bilirubin 0.3 mg/dL (0.15-1.2) 06/10/23 04:10 AST 12 U/L (0-32) 06/10/23 04:10 ALT 11 U/L (0-33) 06/10/23 04:10 Alkaline Phosphatase 55 U/L (35-105) 06/10/23 04:10 Troponin T Baseline 13 ng/L (0-10) H 06/06/23 12:55 Troponin T 120 Minute 11.20 ng/L (0-10) H 06/06/23 17:59 Delta Troponin T -1.80 ABS# (0-10) L 06/06/23 17:59 Troponin T Hi Sens 6Hr 11.08 ng/L (0-10) H 06/06/23 21:50 Troponin T Hi Sens 6Hr Delta -1.92 ng/L (0-12) L 06/06/23 21:50 NT-Pro-B Natriuret Pep 4002 pg/mL (0-125) H 06/06/23 12:55 Total Protein 5.2 g/dL (6.6-8.7) L 06/10/23 04:10 Albumin 2.9 g/dL (3.5-5.2) L 06/10/23 04:10 Globulin 2.3 g/dL (1.3-4.6) 06/10/23 04:10 Triglycerides 90 mg/dL (0-150) 06/07/23 04:57 Cholesterol 108 mg/dL (0-200) 06/07/23 04:57 LDL Cholesterol, Calc 45 mg/dL (50-129) L 06/07/23 04:57 HDL Cholesterol 45 mg/dL (60-100) L 06/07/23 04:57 LDL/HDL Ratio 1.00 RATIO (0.00-3.22) 06/07/23 04:57 Cholesterol/HDL Ratio 2.40 mg/dL (0.0-4.40) 06/07/23 04:57 Vitamin B12 408 pg/mL (232-1245) 06/06/23 12:55 Folate 9.2 ng/mL (4.8-37.3) 06/07/23 04:57 Procalcitonin 0.04 ng/mL (0-0.5) 06/07/23 04:57 TSH 0.70 uIU/mL (0.27-4.20) 06/06/23 12:55 Urine Color Yellow (Yellow) 06/06/23 16:20 Urine Appearance Cloudy (CLEAR) A 06/06/23 16:20 Urine pH 8 (5-7) H 06/06/23 16:20 Ur Specific [place] 1.015 (1.005-1.030) 06/06/23 16:20 Urine Protein Neg (Negative) 06/06/23 16:20 Urine Glucose (UA) Norm (Normal) 06/06/23 16:20 Urine Ketones Negative (Negative) 06/06/23 16:20 Urine Blood Neg (Negative) 06/06/23 16:20 Urine Nitrate Negative (Negative) 06/06/23 16:20 Urine Bilirubin Neg (Negative) 06/06/23 16:20 Prot Sulfosalicylic Acd Negative (Negative) 06/06/23 16:20 Urine Urobilinogen Norm mg/dL (Negative) 06/06/23 16:20 Ur Leukocyte Esterase Negative (Negative) 06/06/23 16:20 Urine RBC 0-4 /hpf (0-2) H 06/06/23 16:20 Urine WBC None /hpf (0-5) 06/06/23 16:20 Ur Squamous Epith Cells 0-4 /hpf (0-5) H 06/06/23 16:20 Ur Transition Epith Cell Rare /hpf 06/06/23 16:20 Ur Renal Epithelial Cell 0-4 /hpf 06/06/23 16:20 Amorphous Sediment 2+ /hpf 06/06/23 16:20 Urine Bacteria Trace /hpf (NONE) 06/06/23 16:20 Urine Mucus 2+ /hpf 06/06/23 16:20 Nasal Influ A H1 2009 PCR Not detected (NOT DETECT) 06/06/23 16:25 Vancomycin Trough 21.1 ug/mL (10-15) H 06/08/23 08:10 Urine Opiates Screen Negative ng/mL (Negative) 06/06/23 16:20 Ur Barbiturates Screen Negative ng/mL (Negative) 06/06/23 16:20 Ur Phencyclidine Scrn Negative ng/mL (Negative) 06/06/23 16:20 Ur Amphetamines Screen Negative ng/mL (Negative) 06/06/23 16:20 U Benzodiazepines Scrn Negative ng/mL (Negative) 06/06/23 16:20 Urine Cocaine Screen Negative ng/mL (Negative) 06/06/23 16:20 U Marijuana (THC) Screen Negative ng/mL (Negative) 06/06/23 16:20 Adenovirus (PCR) Not detected (NOT DETECT) 06/06/23 16:25 C. pneumoniae DNA (PCR) Not detected (NOT DETECT) 06/06/23 16:25 Coronavirus 229E (PCR) Not detected (NOT DETECT) 06/06/23 16:25 Human Metapneumovir PCR Not detected (NOT DETECT) 06/06/23 16:25 Influenza A (H1) PCR Not detected (NOT DETECT) 06/06/23 16:25 Influenza A (H3) PCR Not detected (NOT DETECT) 06/06/23 16:25 Influenza Type A (PCR) Not detected (NOT DETECT) 06/06/23 16:25 Influenza Type B (PCR) Not detected (NOT DETECT) 06/06/23 16:25 M. pneumoniae (PCR) Not detected (NOT DETECT) 06/06/23 16:25 Parainfluenza 1 (PCR) Not detected (NOT DETECT) 06/06/23 16:25 Parainfluenza 2 (PCR) Not detected (NOT DETECT) 06/06/23 16:25 Parainfluenza 3 (PCR) Not detected (NOT DETECT) 06/06/23 16:25 Parainfluenza 4 (PCR) Not detected (NOT DETECT) 06/06/23 16:25 RSV Type A (PCR) Not detected (NOT DETECT) 06/06/23 16:25 RSV Type B (PCR) Not detected (NOT DETECT) 06/06/23 16:25 Entero/Rhino (PCR) Not detected (NOT DETECT) 06/06/23 16:25 SARS-CoV-2 (PCR) Not detected (NOT DETECT) 06/06/23 16:25 Vitals Last Vital Signs Temp 97.6 F 06/10/23 11:34 Pulse 77 06/10/23 11:34 Resp 16 06/10/23 11:34 BP 126/53 06/10/23 11:34 Pulse Ox 94 06/10/23 11:34 O2 Del Method Room Air 06/10/23 11:34 O2 Flow Rate 2 06/10/23 08:00 FiO2 30 06/08/23 23:28 Discharge Plan Discharge Patient Disposition: Home Health Service Condition: Stable Prescriptions: New losartan 50 mg Tablet 50 mg PO DAILY Qty: 30 0RF aspirin 81 mg Tablet,Delayed Release (Dr/Ec) 81 mg PO DAILY Qty: 30 0RF Eliquis 5 mg Tablet 5 mg PO BID@0900,2100 Qty: 60 0RF prednisone 10 mg tablet See Taper PO DIRECTED Qty: 42 0RF Taper: predniSONE 60-10 60 mg Daily for 2 Days and 0 Hour 50 mg Daily for 2 Days and 0 Hour 40 mg Daily for 2 Days and 0 Hour 30 mg Daily for 2 Days and 0 Hour 20 mg Daily for 2 Days and 0 Hour 10 mg Daily for 2 Days and 0 Hour Rx Instructions: see taper instructions amoxicillin-pot clavulanate 875-125 mg tablet 1 tab PO Q12H 3 Days Qty: 6 0RF levofloxacin 750 mg tablet 750 mg PO Q24H 4 Days Qty: 4 0RF ipratropium-albuterol 0.5 mg-3 mg(2.5 mg base)/3 mL solution for nebulization 3 ml inhalation Q8H Qty: 90 0RF budesonide 0.5 mg/2 mL Suspension For Nebulization 0.5 mg inhalation BID.RESPIRATORY Qty: 60 0RF Continued albuterol sulfate 2.5 mg /3 mL (0.083 %) solution for nebulization 2.5 mg inhalation Q6H PRN (Reason: Shortness Of Breath) sotalol 160 mg tablet 160 mg PO Q12H Qty: 60 0RF atorvastatin 40 mg tablet 40 mg PO BEDTIME Qty: 30 0RF Changed bupropion HCl 150 mg tablet sustained-release 12 hr 150 mg PO DAILY Qty: 10 0RF bumetanide 1 mg Tablet 1 mg PO DAILY PRN (Reason: Edema) Qty: 10 0RF Discontinued warfarin 5 mg tablet 5 mg PO DAILY ipratropium bromide 0.02 % solution See Rx Instructions .ROUTE .COMPLEX Rx Instructions: INHALE 1 VIAL IN NEBULIZER EVERY 12 HOURS NEEDED FOR SHORTNESS OF BREATH Discharge Orders: Discharge Order (Routine); Ordered 06/10/23 Ordered By: Temo Benavides Other Ambulatory Orders: DME: BIPAP (Order) Location: None Selected Ordered By: Temo Benavides Referrals: [facility] ([facility]) [Outside] Kilo Dunham [Primary Care Provider] - 7-10 days (Please call Monday to schedule an appointment with Dr. Dunham.) Discharge Diet: Cardiac Discharge Activity: Resume usual activity and Increase activity as tolerated Patient Instructions: Prednisone (By mouth), Aspirin (By mouth), Amoxicillin/Clavulanate Potassium (By mouth), Losartan (By mouth), Levofloxacin (By mouth), Ipratropium/Albuterol (By breathing), Budesonide (By mouth), Apixaban (By mouth), Heart Failure (DC), A-fib (Atrial Fibrillation) (DC), A-fib (Atrial Fibrillation) (GEN), Low-Sodium Diet (DC), CHF Stoplight, Opioid Safety Activity Restrictions/Additional Instructions: She is to restrict fluid intake to less than 1500 cc, salt intake to less than 2 g daily. She was advised to check her weight daily at home. She is advised that her weight today would be her dry weight and if her body weight increases by around 5 pounds she is to take an extra dose of Bumex daily till her body weight comes down to her weight today. If she is not able to come down to her dry body weight in 1 week she is to call cardiology office for further recommendations. Patient was counseled in detail to take her medications regularly. She is to continue taking prednisone as per taper. She will be on antibiotics including Augmentin and Levaquin for next 5 days. Do not take warfarin anymore. It has been switched over to Eliquis. Dose of bupropion has been changed to150 mg daily. Please continue nebulization as discussed in detail. Please follow-up with your primary care provider within next 7 to 10 days with a blood pressure diary. Discharge Attestations Time Spent in Discharge Care*: greater than 30 min Specific Discharge Activities: educating patient, educating and/or supporting family/caregiver, discussing with pcp/other providers, discussing with case packer and sealer/social workers/dc planners, documenting/other paperwork and evaluating patient/reviewing data Quality Metrics Clinical Quality Measures [ No reported AMI, CVA or VTE this stay] Coding Level of Care Code 26663 Total time (in minutes) for Discharge: 65 Diagnoses Acute on chronic respiratory failure with hypoxia and hypercapnia J96.21; J96.22 COPD (chronic obstructive pulmonary disease) J44.9 Pneumonia J18.9 Atrial fibrillation with RVR I48.91 Morbid obesity E66.01 Metabolic alkalosis with respiratory acidosis E87.4 Encephalopathy acute G93.40 Acute on chronic combined systolic and diastolic congestive heart failure I50.43 Heart failure chronicity: acute on chronic Heart failure type: combined systolic and diastolic
[2023-06-10 15:20] LABS: Methicillin-Resist S.aureu PCR DETECTED (NOT DETECTED)
== END 2023-06-10 15:59 | disposition home health service (06) | DRG 193 ==
LOC: ER 15:34 → ICU 15:57 → MEDSURG 06-08 18:00
PROVIDERS: Internal Medicine; Admitting Provider Student in an Organized Health Care Education/Training Program; Emergency Provider Family Medicine; PCP Family Medicine; Visit Provider Student in an Organized Health Care Education/Training Program
DX: J18.9 Pneumonia, unspecified organism (principal); I50.43 Acute on chronic combined systolic (congestive) and diastolic (congestive) heart failure; J96.21 Acute and chronic respiratory failure with hypoxia; J96.22 Acute and chronic respiratory failure with hypercapnia; J44.1 Chronic obstructive pulmonary disease with (acute) exacerbation; E87.4 Mixed disorder of acid-base balance; G93.40 Encephalopathy, unspecified; J44.0 Chronic obstructive pulmonary disease with (acute) lower respiratory infection; Z68.42 Body mass index [BMI] 45.0-49.9, adult; E87.6 Hypokalemia; I48.91 Unspecified atrial fibrillation; E66.01 Morbid (severe) obesity due to excess calories; E86.0 Dehydration; R79.1 Abnormal coagulation profile; Z99.81 Dependence on supplemental oxygen; Z87.891 Personal history of nicotine dependence; Z11.52 Encounter for screening for COVID-19; Z79.01 Long term (current) use of anticoagulants
CPT/HCPCS: 36415; 36573; 36592; 36600; 51702; 71045; 78452; 80051; 80053; 80061; 80202; 80306; 81001; 82330; 82607; 82746; 82805; 83036; 83540; 83550; 83605; 83735; 83880; 84100; 84145; 84443; 84484; 85025; 85378; 85610; 85730; 86403; 87040; 87070; 87205; 87449; 87486; 87581; 87633; 87641; 92523; 92610; 93005; 93017; 93306; 94640; 94660; 94762; 96365; 96366; 96367; 96372; 96375; 96376; 97110; 97116; 97161; 97530; 99291; A9500; C1751; C9113; J0456; J1100; J1644; J1956; J2270; J2543; J2785; J2920; J3370; J3480; J3490; J7030; J7042; J7050; J7614; J7626; J7644

== ENCOUNTER 2024-08-01 16:49 | Inpatient (IN) | payer MEDICARE, SELFPAY ==
[2024-08-01] VITALS (22 sets, daily range): BP systolic 137–171; BP diastolic 79–118; PULSE 81–150; RESP 18–25; TEMP 36.8; O2SAT 81–100; BMI 41.5
--- NOTE | 2024-08-01 16:55 | ECG_ITS ---
[facility] Date: 2024-08-01 Pat Name: Colette Hernandez Department: Room: Gender: Female Tetryl Dissolver Operator: : 1960 Requested By: Kenneth Rocha Order Number: [id number] MD: Corey Sharpe M.D. Measurements Intervals [place] Rate: 129 P: 0 CO: 0 QRS: 82 QRSD: 85 T: 49 QT: 303 QTc: 444 Interpretive Statements ATRIAL FIBRILLATION WITH RAPID VENTRICULAR RESPONSE MINIMAL ST DEPRESSION [0.025+ mV ST DEPRESSION] Compared to ECG 06/06/2023 21:38:37 ST (T wave) deviation now present Ventricular premature complex(es) no longer present Aberrant conduction of supraventricular beat(s) no longer present T-wave abnormality no longer present Electronically Signed On 08-02-2024 08:59:30 HR COORDINATOR by Corey Sharpe M.D. [email or web address]
--- NOTE | 2024-08-01 16:59 | XRR_ITS ---
PROCEDURE INFORMATION: Exam: XR Chest Exam date and time: 08/01/2024 5:51 PM Age: 64 years old Clinical indication: Dyspnea; Additional info: SOB and difficulty breathing TECHNIQUE: Imaging protocol: Radiologic exam of the chest. Views: 1 view. COMPARISON: CR XR chest 1V portable [id number] 06/06/2023 12:38 PM FINDINGS: Lungs: Patchy interstitial and alveolar opacities present in the lung bases. Pleural spaces: Suspected small bilateral pleural effusions. Heart/Mediastinum: Stable cardiomegaly. Bones/joints: Unremarkable. XR/XR chest 1V portable [id number] IMPRESSION: Patchy bibasilar interstitial and alveolar opacities with adjacent small pleural effusions.
--- NOTE | 2024-08-01 17:03 | W.ED.SOB ---
Documented by User: Kenneth Rocha MD 08/01/24 17:13 HPI - SOB/Dyspnea General: Chief Complaint: Shortness of Breath/Dyspnea Stated Complaint: SOB Time Seen by Provider: 08/01/24 16:59 History of Present Illness: HPI Narrative: Colette is a 64-year-old female with past medical history of COPD BL O2 2L, CHF, A-fib no longer on Eliquis and chronic hypercapnic respiratory failure presents via EMS from home due to worsening shortness of breath and increased oxygen requirement over the past week. EMS reports finding her on 5 L O2 at home, heart rate 170s that came down to 110s after Cardizem. She is also noticed increased chest congestion and productive cough over the past week. She is on sotalol for her A-fib and reports taking this as prescribed including this morning. Significant conversational dyspnea on my encounter with her. takes aspirin for her Eliquis. Does follow with a PCP does not have a appraisal analyst. Intermittent chest pain this week, she denies having any current chest pain. MD elicited complaint: shortness of breath Related Data Home Medications Medication Instructions Recorded Confirmed albuterol sulfate 2.5 mg/3 mL 2.5 mg inhalation Q6H PRN 06/06/23 06/06/23 (0.083 %) solution for nebulization Shortness Of Breath Previous Rx's Medication Instructions Recorded apixaban 5 mg tablet (Eliquis) 5 mg PO BID@0900,2100 #60 tabs 06/09/23 aspirin 81 mg tablet,delayed 81 mg PO DAILY #30 tabs 06/09/23 release ipratropium 0.5 mg-albuterol 3 mg 3 ml inhalation Q8H #90 mL 06/09/23 (2.5 mg base)/3 mL nebulization soln losartan 50 mg tablet 50 mg PO DAILY #30 tabs 06/09/23 prednisone 10 mg tablet See Taper PO DIRECTED #42 tabs 06/09/23 atorvastatin 40 mg tablet 40 mg PO BEDTIME #30 tabs 06/10/23 budesonide 0.5 mg/2 mL suspension 0.5 mg (2 mL) inhalation 06/10/23 for nebulization BID.RESPIRATORY #60 mL bumetanide 1 mg tablet 1 mg PO DAILY PRN Edema #10 tabs 06/10/23 bupropion HCl 150 mg tablet,12 hr 150 mg PO DAILY #10 tabs 06/10/23 sustained-release sotalol 160 mg tablet 160 mg PO Q12H #60 tabs 06/10/23 Allergies Allergy/AdvReac Type Severity Reaction Status Date / Time No Known Allergies Allergy Verified 06/06/23 12:28 [facility] ED PFSH: Medical History (Updated 08/01/24 @ 19:38 by Rubia Garcia MD) Morbid obesity Atrial fibrillation with RVR On home oxygen therapy COPD (chronic obstructive pulmonary disease) Family History (Updated 06/06/23 @ 16:26 by Temo Benavides MD) Other Arrhythmia Atrial fibrillation CAD (coronary artery disease) Social History (Updated 06/06/23 @ 16:27 by Temo Benavides MD) Smoking and tobacco/nicotine status: former use of tobacco/nicotine Alcohol intake: never Substance/Drug Use: never Caregiver/support person: Yes Lives independently: Yes Household members: spouse and family Housing: House Marital status: Physical Exam Const: COMMON NORMALS: patient oriented x3 OTHER: Chronic stasis dermatitis over bilateral lower extremities with 2+ pitting edema. Difficult to auscultate lung sounds due to body habitus, no wheezing appreciated. Significant conversational dyspnea with use of accessory muscles, tachypneic to high 20s. HENMT: COMMON NORMALS: normocephalic and atraumatic HEAD & SCALP: normocephalic and atraumatic Eye: COMMON NORMALS: Equal, round and reactive pupils present and EOMs intact bilaterally PUPIL: Yes Equal, round and reactive pupils present Chest: COMMONS NORMALS: normal inspection of the chest and normal palpation of entire chest wall Cardio: COMMON NORMALS: No murmurs present (Cardio) GI: COMMON NORMALS: Normal to inspection, nondistended, normoactive bowel sounds present, Soft to palpation and non-tender PALPATION: Yes Soft to palpation Extremity: COMMON NORMALS: normal to inspection and full ROM Neuro: COMMON NORMALS: patient oriented x3, moves all extremities and no focal motor deficits Psych: COMMON NORMALS: mental status grossly normal, Normal thought process present and cooperative THOUGHT PROCESS: Normal thought process present Course Vital Signs: Vital signs: Vital Signs Temperature 98.3 F 08/01/24 16:51 Pulse Rate 145 H 08/01/24 18:30 Respiratory Rate 19 H 08/01/24 17:56 Blood Pressure 139/80 08/01/24 17:56 Pulse Oximetry 100 08/01/24 18:30 Oxygen Delivery Me thod BiPAP 08/01/24 18:30 Oxygen Flow Rate 5 08/01/24 16:51 Fraction of Inspir ed Oxygen 50 08/01/24 17:19 MDM - SOB/Dyspnea Medical Decision Making Colette is a 64-year-old female with past medical history of COPD BL O2 2L, CHF, A-fib no longer on Eliquis and chronic hypercapnic respiratory failure presents via EMS from home due to increasing oxygen requirement and respiratory distress. On arrival placed on BiPAP due to increased work of breathing and hypoxia despite 5 L NC. Lab Data 08/01/24 17:25 08/01/24 17:25 Labs/Radiology: Radiology Impressions Chest X-Ray 08/01/24 16:59 IMPRESSION: Patchy bibasilar interstitial and alveolar opacities with adjacent small pleural effusions. Laboratory Results WBC 9.31 10^3/uL (3.29-11.43) 08/01/24 17:25 RBC 3.91 10^6/uL (3.85-5.65) 08/01/24 17:25 Hgb 10.80 g/dL (11.27-16.99) L 08/01/24 17:25 Hct 41.4 % (36-47) 08/01/24 17:25 MCV 105.9 fl (85-98) H 08/01/24 17:25 MCH 27.6 pg (27-33) 08/01/24 17: MCHC 26.1 g/dL (30-55) L 08/01/24 17:25 RDW 14.8 % (12.1-15.1) 08/01/24 17:25 Plt Count 298 10^3/cmm (157-399) 08/01/24 17:25 MPV 11.3 fL (7.4-10.4) H 08/01/24 17:25 Neut % (Auto) 87.7 % 08/01/24 17:25 Lymph % (Auto) 6.9 % 08/01/24 17:25 [place] % (Auto) 4.1 % 08/01/24 17:25 Eos % (Auto) 0.1 % 08/01/24 17:25 Baso % (Auto) 0.3 % 08/01/24 17:25 Neut # (Auto) 8.17 10^3/uL (1.8-7.7) H 08/01/24 17: Lymph # (Auto) 0.6 10^3/uL (0.8-4.8) L 08/01/24 17:25 [place] # (Auto) 0.4 10^3/uL (0.2-0.9) 08/01/24 17: Eos # (Auto) 0.0 10^3/uL (0.0-0.8) 08/01/24 17: Baso # (Auto) 0.0 10^3/uL (0.0-0.1) 08/01/24: Nucleated RBC % (auto) 0 % 08/01/24: Nucleated RBCs # 0.0 /100WBC 08/01/24 17: PT 13.20 SECONDS (12.1-14.9) 08/01/24 17: INR 0.94 (0.8-1.2) 08/01/24 17: APTT 25.1 SECONDS (23.9-36.7) 08/01/24 17:25 Specimen Type Arterial 08/01/24 16:58 Sample Site Radial, left 08/01/24 16:58 ABG pH 7.20 (7.35-7.45) L 08/01/24 16:58 ABG pCO2 > 102.0 mmHg (35-45) H* 08/01/24 16:58 ABG pO2 70.6 mmHg (80.0-100.0) L 08/01/24 16:58 ABG HCO3 45.4 mmol/L (22-26) H 08/01/24 16:58 ABG Base Excess 13.4 mmol/L (-2.0-2.0) H 08/01/24 16:58 Morro Test Pos 08/01/24 16:58 Hematocrit 34.4 % (37-47) L 08/01/24 16:58 Hgb O2 Saturation 89.6 % (95-100) L 08/01/24 16:58 Carboxyhemoglobin 1.8 %THgb (0.4-20.1) 08/01/24 16:58 Methemoglobin 1.0 % (0.4-1.5) 08/01/24 16:58 Total Hemoglobin 11.2 g/dL (12-16) L 08/01/24 16:58 O2 Delivery Device Nc 08/01/24 16:58 O2 Liters/Min 6.0 % 08/01/24 16:58 Metal Trim Erector ID Terry 08/01/24 16:58 Sodium 142 mmol/L (136-145) 08/01/24 17:25 Potassium 4.9 mmol/L (3.5-5.1) 08/01/24 17:25 Chloride 93 mmol/L (98-107) L 08/01/24 17:25 Carbon Dioxide 47 mmol/L (22-29) H* 08/01/24 17:25 Anion Gap 6.9 (5-19) 08/01/24 17:25 BUN 17 mg/dL (8-23) 08/01/24 17:25 Creatinine 0.6 mg/dL (0.5-0.9) 08/01/24 17:25 GFR Calculation 101.0 mL/min (90-130) 08/01/24 17:25 Glucose 163 mg/dL (65-115) H 08/01/24 17:25 Calculated Osmolality 299 mOsm/kg (285-295) H 08/01/24 17:25 Calcium 9.3 mg/dL (8.5-10.5) 08/01/24 17:25 Total Bilirubin 0.7 mg/dL (0.15-1.2) 08/01/24 17:25 AST 12 U/L (0-32) 08/01/24 17:25 ALT 9 U/L (0-33) 08/01/24 17:25 Alkaline Phosphatase 135 U/L (35-105) H 08/01/24 17:25 Troponin T Baseline 16 ng/L (0-10) H 08/01/24 17:25 NT-Pro-B Natriuret Pep 3118 pg/mL (0-125) H 08/01/24 17:25 Total Protein 7.2 g/dL (6.6-8.7) 08/01/24 17:25 Albumin 3.9 g/dL (3.5-5.2) 08/01/24 17:25 Globulin 3.3 g/dL (1.3-4.6) 08/01/24 17:25 SARS-CoV-2 Ag (Rapid) Negative (Negative) 08/01/24 18:15 Discharge Plan Discharge Patient Disposition: Admitted As Inpatient Clinical Impression: COPD with acute exacerbation, Acute hypoxemic respiratory failure, Hypercapnic respiratory failure, Pleural effusion, Atrial fibrillation with rapid ventricular response Condition: Stable Coding Level of Care Code ED Winder Operator for Chg Fwd Documented by User: Rubia Garcia MD 08/01/24 19:41 HPI - SOB/Dyspnea General: Chief Complaint: Shortness of Breath/Dyspnea Stated Complaint: SOB Time Seen by Provider: 08/01/24 16:59 Related Data Home Medications Medication Instructions Recorded Confirmed albuterol sulfate 2.5 mg/3 mL 2.5 mg inhalation Q6H PRN 06/06/23 06/06/23 (0.083 %) solution for nebulization Shortness Of Breath Previous Rx's Medication Instructions Recorded apixaban 5 mg tablet (Eliquis) 5 mg PO BID@0900,2100 #60 tabs 06/09/23 aspirin 81 mg tablet,delayed 81 mg PO DAILY #30 tabs 06/09/23 release ipratropium 0.5 mg-albuterol 3 mg 3 ml inhalation Q8H #90 mL 06/09/23 (2.5 mg base)/3 mL nebulization soln losartan 50 mg tablet 50 mg PO DAILY #30 tabs 06/09/23 prednisone 10 mg tablet See Taper PO DIRECTED #42 tabs 06/09/23 atorvastatin 40 mg tablet 40 mg PO BEDTIME #30 tabs 06/10/23 budesonide 0.5 mg/2 mL suspension 0.5 mg (2 mL) inhalation 06/10/23 for nebulization BID.RESPIRATORY #60 mL bumetanide 1 mg tablet 1 mg PO DAILY PRN Edema #10 tabs 06/10/23 bupropion HCl 150 mg tablet,12 hr 150 mg PO DAILY #10 tabs 06/10/23 sustained-release sotalol 160 mg tablet 160 mg PO Q12H #60 tabs 06/10/23 Allergies Allergy/AdvReac Type Severity Reaction Status Date / Time No Known Allergies Allergy Verified 06/06/23 12:28 [facility] ED PFSH: Medical History (Updated 08/01/24 @ 19:38 by Rubia Garcia MD) Morbid obesity Atrial fibrillation with RVR On home oxygen therapy COPD (chronic obstructive pulmonary disease) Family History (Updated 06/06/23 @ 16:26 by Temo Benavides MD) Other Arrhythmia Atrial fibrillation CAD (coronary artery disease) Social History (Updated 06/06/23 @ 16:27 by Temo Benavides MD) Smoking and tobacco/nicotine status: former use of tobacco/nicotine Alcohol intake: never Substance/Drug Use: never Caregiver/support person: Yes Lives independently: Yes Household members: spouse and family Housing: House Marital status: Course Vital Signs: Vital signs: Vital Signs Temperature 98.3 F 08/01/24 16:51 Pulse Rate 145 H 08/01/24 18:30 Respiratory Rate 19 H 08/01/24 17:56 Blood Pressure 139/80 08/01/24 17:56 Pulse Oximetry 100 08/01/24 18:30 Oxygen Delivery Me thod BiPAP 08/01/24 18:30 Oxygen Flow Rate 5 08/01/24 16:51 Fraction of Inspir ed Oxygen 50 08/01/24 17:19 MDM - SOB/Dyspnea Medical Decision Making Colette is a 64-year-old female with past medical history of COPD BL O2 2L, CHF, A-fib no longer on Eliquis and chronic hypercapnic respiratory failure presents via EMS from home due to increasing oxygen requirement and respiratory distress. On arrival placed on BiPAP due to increased work of breathing and hypoxia despite 5 L NC. Patient care transitioned me at shift change. Awaiting lab work etc. Consultation: I spoke with Dr. Akbar about the patient who agrees to admission to the ICU. Assessment and plan: COPD with acute exacerbation Possible pneumonia Pleural effusions A-fib with RVR Hypoxemic respiratory failure Hypercapnic respiratory failure ?Patient placed on BiPAP. Breathing treatments and steroids given. ?IV Levaquin. ?Rate has improved to around 95-1 10 with improvement of her oxygenation ?Patient oxygenation has improved quite a bit on the BiPAP. She is 100% on the 50% repeating ABG -I discussed the patient with the hospitalist on-call who is admitting the patient. - Discussed findings and plan with patient. Answered any questions. - All laboratory values were reviewed and interpreted personally by myself, the ER physician - All imaging was reviewed and interpreted personally by myself, the ER physician. - Evaluation and treatment of this problem were appropriate in the emergency setting Critical care -I spent a total of >35 minutes of critical care time managing the patient, independent of any other practitioner. -The time involved in the performance of separately reportable procedures was not counted towards critical care time. Lab Data 08/01/24 17:25 08/01/24 17:25 Labs/Radiology: Radiology Impressions Chest X-Ray 08/01/24 16:59 IMPRESSION: Patchy bibasilar interstitial and alveolar opacities with adjacent small pleural effusions. Laboratory Results WBC 9.31 10^3/uL (3.29-11.43) 08/01/24 17: RBC 3.91 10^6/uL (3.85-5.65) 08/01/24 17: Hgb 10.80 g/dL (11.27-16.99) L 08/01/24 17: Hct 41.4 % (36-47) 08/01/24 17: MCV 105.9 fl (85-98) H 08/01/24 17: MCH 27.6 pg (27-33) 08/01/24 17: MCHC 26.1 g/dL (30-55) L 08/01/24 17: RDW 14.8 % (12.1-15.1) 08/01/24 17: Plt Count 298 10^3/cmm (157-399) 08/01/24 17: MPV 11.3 fL (7.4-10.4) H 08/01/24 17: Neut % (Auto) 87.7 % 08/01/24 17: Lymph % (Auto) 6.9 % 08/01/24: [place] % (Auto) 4.1 % 08/01/24 17: Eos % (Auto) 0.1 % 08/01/24 17: Baso % (Auto) 0.3 % 08/01/24 17:25 Neut # (Auto) 8.17 10^3/uL (1.8-7.7) H 08/01/24 17:25 Lymph # (Auto) 0.6 10^3/uL (0.8-4.8) L 08/01/24 17:25 [place] # (Auto) 0.4 10^3/uL (0.2-0.9) 08/01/24 17:25 Eos # (Auto) 0.0 10^3/uL (0.0-0.8) 08/01/24 17:25 Baso # (Auto) 0.0 10^3/uL (0.0-0.1) 08/01/24: Nucleated RBC % (auto) 0 % 08/01/24: Nucleated RBCs # 0.0 /100WBC 08/01/24 17:25 PT 13.20 SECONDS (12.1-14.9) 08/01/24 17: INR 0.94 (0.8-1.2) 08/01/24 17: APTT 25.1 SECONDS (23.9-36.7) 08/01/24 17:25 Specimen Type Arterial 08/01/24 16:58 Sample Site Radial, left 08/01/24 16:58 ABG pH 7.20 (7.35-7.45) L 08/01/24 16:58 ABG pCO2 > 102.0 mmHg (35-45) H* 08/01/24 16:58 ABG pO2 70.6 mmHg (80.0-100.0) L 08/01/24 16:58 ABG HCO3 45.4 mmol/L (22-26) H 08/01/24 16:58 ABG Base Excess 13.4 mmol/L (-2.0-2.0) H 08/01/24 16:58 Morro Test Pos 08/01/24 16:58 Hematocrit 34.4 % (37-47) L 08/01/24 16:58 Hgb O2 Saturation 89.6 % (95-100) L 08/01/24 16:58 Carboxyhemoglobin 1.8 %THgb (0.4-20.1) 08/01/24 16:58 Methemoglobin 1.0 % (0.4-1.5) 08/01/24 16:58 Total Hemoglobin 11.2 g/dL (12-16) L 08/01/24 16:58 O2 Delivery Device Nc 08/01/24 16:58 O2 Liters/Min 6.0 % 08/01/24 16:58 Metal Trim Erector ID Terry 08/01/24 16:58 Sodium 142 mmol/L (136-145) 08/01/24 17:25 Potassium 4.9 mmol/L (3.5-5.1) 08/01/24 17:25 Chloride 93 mmol/L (98-107) L 08/01/24 17:25 Carbon Dioxide 47 mmol/L (22-29) H* 08/01/24 17:25 Anion Gap 6.9 (5-19) 08/01/24 17:25 BUN 17 mg/dL (8-23) 08/01/24 17:25 Creatinine 0.6 mg/dL (0.5-0.9) 08/01/24 17:25 GFR Calculation 101.0 mL/min (90-130) 08/01/24 17:25 Glucose 163 mg/dL (65-115) H 08/01/24 17:25 Calculated Osmolality 299 mOsm/kg (285-295) H 08/01/24 17:25 Calcium 9.3 mg/dL (8.5-10.5) 08/01/24 17:25 Total Bilirubin 0.7 mg/dL (0.15-1.2) 08/01/24 17:25 AST 12 U/L (0-32) 08/01/24 17:25 ALT 9 U/L (0-33) 08/01/24 17:25 Alkaline Phosphatase 135 U/L (35-105) H 08/01/24 17:25 Troponin T Baseline 16 ng/L (0-10) H 08/01/24 17:25 NT-Pro-B Natriuret Pep 3118 pg/mL (0-125) H 08/01/24 17:25 Total Protein 7.2 g/dL (6.6-8.7) 08/01/24 17:25 Albumin 3.9 g/dL (3.5-5.2) 08/01/24 17:25 Globulin 3.3 g/dL (1.3-4.6) 08/01/24 17:25 SARS-CoV-2 Ag (Rapid) Negative (Negative) 08/01/24 18:15 All radiology interpretation(s) finalized by discharge Discharge Plan Discharge Patient Disposition: Admitted As Inpatient Clinical Impression: COPD with acute exacerbation, Acute hypoxemic respiratory failure, Hypercapnic respiratory failure, Pleural effusion, Atrial fibrillation with rapid ventricular response Condition: Stable Coding Level of Care Code ED Winder Operator for Rey Ruiz
[2024-08-01 17:09] LABS: Arterial Blood Gas Hematocrit 34.4 % (37-47); Base Excess ABG 13.4 mmol/L (-2.0-2.0); Blood Gas Allen Test Pos; Blood Gas Operator Identificat WALCI; Blood Gas Sample Site Radial, left; Blood Gas Sample Type Arterial; Carboxyhemoglobin 1.8 %THgb (0.4-20.1); HCO3 ABG 45.4 mmol/L (22-26); HGB O2 Sat 89.6 % (95-100); Oxygen Device NC; PO2 ABG 70.6 mmHg (80.0-100.0); Total Hemoglobin 11.2 g/dL (12-16)
[2024-08-01 17:10] LABS: ABG PCO2 > 102.0 mmHg (35-45)
[2024-08-01] MEDS: ipratropium-albuterol 3 mL Neb INHALATION (17:11)
[2024-08-01] MEDS: methylPREDNISolone sod succ 125 mg/2 mL INJ IV (17:41)
[2024-08-01 18:00] LABS: Basophils % 0.3 %; Eosinophils % 0.1 %; Hematocrit 41.4 % (36-47); Lymphocytes # 0.6 10^3/uL (0.8-4.8); Lymphocytes % 6.9 %; Mean Corpuscular HGB Conc 26.1 g/dL (30-55); Mean Corpuscular Hemoglobin 27.6 pg (27-33); Mean Corpuscular Volume 105.9 fl (85-98); Mean Platelet Volume 11.3 fL (7.4-10.4); Monocytes # 0.4 10^3/uL (0.2-0.9); Monocytes % 4.1 %; Neutrophils # 8.17 10^3/uL (1.8-7.7); Neutrophils % 87.7 %; Nucleated Red Blood Cells % 0 %; Platelet Count 298 10^3/cmm (157-399); Red Blood Count 3.91 10^6/uL (3.85-5.65); Red Cell Distribution Width 14.8 % (12.1-15.1); White Blood Count 9.31 10^3/uL (3.29-11.43)
[2024-08-01] MEDS: dilTIAZem 100 MG in sodium chloride 0.9% (add-van) 100 ML IV (18:00)
[2024-08-01 18:34] LABS: Troponin(5th) Baseline 16 ng/L (0-10)
[2024-08-01 18:43] LABS: Alanine Aminotransferase 9 U/L (0-33); Albumin Level 3.9 g/dL (3.5-5.2); Alkaline Phosphatase 135 U/L (35-105); Anion Gap 6.9 (5-19); Aspartate Amino Transferase 12 U/L (0-32); Blood Urea Nitrogen 17 mg/dL (8-23); Calcium 9.3 mg/dL (8.5-10.5); Chloride 93 mmol/L (98-107); Creatinine Clr Calc Pharmacy 120.5359; Globulin 3.3 g/dL (1.3-4.6); Glucose 163 mg/dL (65-115); NT Pro B Type Natriuretic Pept 3118 pg/mL (0-125); Osmolality Calculated 299 mOsm/kg (285-295); Potassium 4.9 mmol/L (3.5-5.1); Sodium 142 mmol/L (136-145); Total Bilirubin 0.7 mg/dL (0.15-1.2); Total Protein 7.2 g/dL (6.6-8.7)
[2024-08-01 18:46] LABS: Carbon Dioxide 47 mmol/L (22-29)
--- NOTE | 2024-08-01 19:16 | P.HP_ITS ---
Providers/Chief Complaint 2 Primary Care Provider: Kilo Dunham Chief Complaint: SOB History of Present Illness Colette Hernandez is a 64 yo woman w/ COPD, Paroxysmal Afib, chronic HFrEF w/ diastolic dysfxn,chronic hypoxic respiratory failure prescribed 2L at night, but wears it also during the day when moving around, who presents to [facility]'s ED on 08/01/2024 with complaints of confusion that began 3 days ago and dyspnea that began last night. The patient states that 3 days ago her found her asleep on the table and when she woke up, she felt confused and had speech difficulties. The patient thought that she had a stroke, but her confusion and speech difficulties quickly resolved. Yesterday night, according to the patient's , the patient was confused and dypsneic. Her encouraged her to come to the hospital, but she declined. W/ increasing dyspnea, the patient told her daughter to call EMS. She endorses dizziness, CP, palpitations, diaphoresis, She denies syncope, falls, head trauma, fever, chills, In the ED, her vital signs were significant for tachycardia, tachypnea, and elevated BP as high as 171/99 mmHg. According to ED signout, patient's O2 sat was as low as 86% on 5L. Her labs showed no leukocytosis, but it did show macrocytic anemia. It also showed a bicarb of 47. An ABG was done that showed 7.2/>102/70.6, so she was placed on BiPAP. Repeat ABG after 2.5 hours of BiPAP with an FiO2 of 50% and a PEEP of 10 was 7.36/79.6/94. The patient's CXR showed patchy bibasilar interstitial and alveolar opacities with adjacent small pleural effusions. Her EKG showed A-fib with RVR, but no ST changes. Her troponin T was minimally elevated x 2. She was given DuoNebs x 1, 125 mg of Solu-Medrol x 1, 0.5 mg of Dilaudid x 1, and started on a diltiazem drip, prior to admission. Review of Systems 2 Const: Denies: fever(s) or chills Eyes: Denies: change in vision ENMT: Reports: nasal discharge (due to her O2 nasal tube) and other (L. aural fullness - 3 days. ); Denies: odynophagia, ear or mastoid pain, ear discharge or nasal congestion Card: Reports: chest pain and palpitations; Denies: lightheadedness or syncope Resp: Reports: dyspnea; Denies: productive cough, non-productive cough or wheezing GI: Reports: constipation; Denies: abdominal pain, nausea, vomiting, hematochezia or melena : Reports: urinary frequency and urinary urgency; Denies: difficulty voiding, dysuria or hematuria Musc: Reports: joint pain (back pain - chronic) Skin/Breast: Denies: rash or new lesions Neuro: Reports: dizziness; Denies: headache(s) Psych: Denies: suicidal ideation or homicidal ideation Endo: Reports: cold intolerance; Denies: heat intolerance Gavin/Lymph: Reports: easy bruising; Denies: easy bleeding Medications/Allergies Home Medications Medication Instructions Recorded Confirmed Last Taken Type albuterol sulfate 2.5 mg/3 mL 2.5 mg inhalation Q6H PRN 06/06/23 06/06/23 Unknown History (0.083 %) solution for nebulization Shortness Of Breath apixaban 5 mg tablet (Eliquis) 5 mg PO BID@0900,2100 #60 tabs 06/09/23 Unknown Rx aspirin 81 mg tablet,delayed 81 mg PO DAILY #30 tabs 06/09/23 Unknown Rx release ipratropium 0.5 mg-albuterol 3 mg 3 ml inhalation Q8H #90 mL 06/09/23 Unknown Rx (2.5 mg base)/3 mL nebulization soln losartan 50 mg tablet 50 mg PO DAILY #30 tabs 06/09/23 Unknown Rx prednisone 10 mg tablet See Taper PO DIRECTED #42 tabs 06/09/23 Unknown Rx atorvastatin 40 mg tablet 40 mg PO BEDTIME #30 tabs 06/10/23 Unknown Rx budesonide 0.5 mg/2 mL suspension 0.5 mg (2 mL) inhalation 06/10/23 Unknown Rx for nebulization BID.RESPIRATORY #60 mL bumetanide 1 mg tablet 1 mg PO DAILY PRN Edema #10 tabs 06/10/23 Unknown Rx bupropion HCl 150 mg tablet,12 hr 150 mg PO DAILY #10 tabs 06/10/23 Unknown Rx sustained-release sotalol 160 mg tablet 160 mg PO Q12H #60 tabs 06/10/23 Unknown Rx Allergies Allergy/AdvReac Type Severity Reaction Status Date / Time No Known Allergies Allergy Verified 06/06/23 12:28 PFSH Acute 2 PFSH: Medical History Morbid obesity Atrial fibrillation with RVR On home oxygen therapy COPD (chronic obstructive pulmonary disease) Family History (Updated 08/01/24 @ 21:52 by Marychuy Akbar MD) Mother Atrial fibrillation Father Heart attack Other CAD (coronary artery disease) Social History Smoking and tobacco/nicotine status: former use of tobacco/nicotine Alcohol intake: never Substance/Drug Use: never Caregiver/support person: Yes Lives independently: Yes Household members: spouse and family Housing: House Marital status: Vitals/I&O/Wt Last Vital Signs Temp 98.3 F 08/01/24 16:51 Pulse 145 H 08/01/24 18:30 Resp 19 H 08/01/24 17:56 BP 139/80 08/01/24 17:56 Pulse Ox 100 08/01/24 18:30 O2 Del Method BiPAP 08/01/24 18:30 O2 Flow Rate 5 08/01/24 16:51 FiO2 50 08/01/24 17:19 08/01/24 08/01/24 08/01/24 06:59 14:59 22:59 Intake Total 8.667 / 8.667 Balance 8.667 / 8.667 Weight last 48 hrs Weight 113.398 kg Physical Exam 2 Narrative: Her physical exam was limited by the fact that she was wearing BiPAP at the time that she was seen and examined. Const: GENERAL APPEARANCE: cooperative; not comfortable (Because she was wearing BiPAP) ORIENTATION/CONSCIOUSNESS: Y es awake, Yes oriented to person, Yes oriented to place and Yes oriented to time HENMT: HEAD & SCALP: normocephalic and atraumatic NOSE: Normal external nose present EXTERNAL EAR: Yes external ears normal OTHER: Unable to examine the oropharynx due to BiPAP. Eye: OTHER: PERRL, EOMI, normal conjunctiva bilaterally. Neck/C-Spine: GENERAL: Yes normal visual inspection and Yes trachea midline THYROID: Thyroid normal CAROTIDS: No bruit CERVICAL SPINE: Yes cervical ROM normal Lymph: OTHER: No cervical or supraclavicular LAD appreciated. Resp: OTHER: Severely diminishing to absent breath sounds from the bilateral mid to lower lung patricia. Cardio: OTHER: Irregular rate and rhythm, no murmurs, rubs, gallops or clicks. GI: OTHER: BS+. NT, ND, no guarding, no rigidity, no rebound tenderness, no hepatosplenomegaly. Extremity: NARRATIVE EXTREMITY EXAM: 2+ pitting edema to the upper tibia GENERAL: No clubbing and No cyanosis Neuro: CRANIAL NERVES: Yes CN normal except as noted SPEECH: speech normal SENSORY EXAM: No sensory level loss detected MOTOR EXAM: 5/5 motor strength present throughout and Normal motor muscle tone present throughout Psych: APPEARANCE: Yes unkempt ATTITUDE: Yes engaged and Yes agitated S PEECH: Yes normal speech MOOD & AFFECT: Yes anxious THOUGHT PROCESS: N ormal thought process present THOUGHT CONTENT: Yes Normal thought content present ATTENTION/CONCENTRATION: Yes attention grossly intact M FLAKITO/COGNITION: Yes memory grossly intact Skin: GENERAL SKIN EXAM: no rashes or lesions noted Data 08/01/24 17:25 08/01/24 17:25 A&P Assessment and plan (1) Atrial fibrillation with rapid ventricular response: (2) Acute on chronic respiratory failure with hypoxia and hypercapnia: (3) Acute on chronic heart failure with reduced ejection fraction and diastolic dysfunction: (4) COPD with acute exacerbation: (5) SIRS (systemic inflammatory response syndrome): Plan Colette Hernandez is a 64 yo woman w/ COPD, Paroxysmal Afib, chronic HFrEF w/ diastolic dysfxn,chronic hypoxic respiratory failure prescribed 2L at night, but wears it also during the day when moving around, who presents to [facility]'s ED on 08/01/2024 with complaints of confusion that began 3 days ago and dyspnea that began last night. She is being admitted for acute on chronic respiratory failure with hypoxia and hypercapnia, A-fib with RVR, acute COPD exacerbation, and exacerbation of her acute on chronic heart failure with reduced ejection fraction. #SIRS: based on tachypnea and tachycardia. CT chest ruled out a pneumonia. #Acute on chronic Hypoxic Hypercapneic Respiratory failure: Continue BiPAP. Repeat ABG ordered for 10pm. #Acute COPD exacerbation: duonebs, levofloxacin, PPI, solumedrol ordered. #Acute on chronic HFrEF w/ diastolic dysfxn: better clarified on CT chest. Start Lasix + acetazolamide +/- metolazone. strict Is & Os. #Afib w/ RVR: On a dilitazem drip. Order Sotalol for the AM. Full dose lovenox ordered. Hold home Apixaban #HTN: Held Losartan for now. #HLD - Resume home aspirin, atorvastatin. #Macrocytic anemia: F/u peripheral smear and iron studies. #Unclear why she is on Bupropion. Defer to day Physician to initiate. DVT ppx: Full dose Lovenox Attestations 2 Medical Necessity Statement*: The patient needs to be hospitalized for greater than 2 midnights for her acute on chronic respiratory failure with hypoxia and hypercapnia, A-fib with RVR, acute COPD exacerbation, and exacerbation of her acute on chronic heart failure with reduced ejection fraction. Time Spent in Patient Care: >70mins was spent on chart review, interview of the patient and her , patient exam, lab/image review, plan formulation and coordination of care. Diagnoses Atrial fibrillation with rapid ventricular response I48.91 Acute on chronic respiratory failure with hypoxia and hypercapnia J96.21; J96.22 Acute on chronic heart failure with reduced ejection fraction and diastolic dysfunction I50.43 COPD with acute exacerbation J44.1 SIRS (systemic inflammatory response syndrome) R65.10
[2024-08-01 19:19] LABS: SARS Covid-2 Antigen Negative (Negative)
[2024-08-01 19:32] LABS: INR 0.94 (0.8-1.2)
[2024-08-01 19:33] LABS: Partial Thromboplastin Time 25.1 SECONDS (23.9-36.7)
[2024-08-01 19:51] LABS: ABG PCO2 79.6 mmHg (35-45); ABG PH Result 7.36 (7.35-7.45); Alveolar-Arterial Oxygen Gradi 22.4 mmHg (5-10); Arterial Blood Gas Hematocrit 33.1 % (37-47); Blood Gas Sample Site Brachial, right; Blood Gas Sample Type Arterial; Carboxyhemoglobin 1.6 %THgb (0.4-20.1); HCO3 ABG 44.6 mmol/L (22-26); HGB O2 Sat 95.9 % (95-100); Ionized Calcium Level - ABG 1.2 mmol/L (1.1-1.4); Methemoglobin 0.8 % (0.4-1.5); Oxygen Device BIPAP; Oxygen Saturation ABG 98.3; PO2 FiO2 Ratio Arterial Blood 188; Potassium Level - ABG 4.7 mmol/L (3.5-5.0); Total Hemoglobin 10.8 g/dL (12-16)
--- NOTE | 2024-08-01 20:04 | CTR_ITS ---
PROCEDURE INFORMATION: Exam: CT Chest Without Contrast; Diagnostic Exam date and time: 08/01/2024 8:29 PM Age: 64 years old Clinical indication: Shortness of breath; Patient HX: SOB with hypoxia. History of copd and afib. ; Additional info: Infiltrates on cxr, is this chf or pneumonia? TECHNIQUE: Imaging protocol: Diagnostic computed tomography of the chest without contrast. Radiation optimization: All CT scans at this facility use at least one of these dose optimization techniques: automated exposure control; mA and/or kV adjustment per patient size (includes targeted exams where dose is matched to clinical indication); or iterative reconstruction. COMPARISON: CR XR chest 1V portable [id number] 08/01/2024 5:51 PM RADIATION DOSE METRICS: Total DLP (mGy-cm): 711.32 FINDINGS: Lungs: Bilateral dependent passive atelectasis. Mild bilateral diffuse interlobular septal thickening. There is a 1 cm noncalcified pulmonary nodule involving the left upper lobe (series 4, image 9). There is a 5 mm potentially cavitary nodule in the left upper lobe (series 4, image 16). Pleural spaces: Mild bilateral pleural effusions present. Heart: The heart is enlarged. Lymph nodes: Unremarkable. No enlarged lymph nodes. Vasculature: The pulmonary arterial trunk is dilated measuring up to 3.4 cm in diameter suggesting pulmonary arterial hypertension. Calcific plaque involves the thoracic aorta and coronary arteries. The thoracic aorta is free of aneurysm. Bones/joints: Mild degenerative changes involve the spine. Soft tissues: Unremarkable. Other findings: Image quality degraded by motion artifact. CT/CT chest wo con [id number] IMPRESSION: 1. Cardiomegaly associated with mild interstitial edema and mild bilateral pleural effusions. 2. Left upper lobe pulmonary nodules as detailed. Follow-up per Fleischner criteria recommended. 3. Atherosclerosis including coronary artery calcification. 4. Dilated pulmonary arterial trunk suggesting pulmonary arterial hypertension. For patients at low risk (minimal or absent history of smoking and of other known risk factors), recommend CT Chest at 3-6 months, then consider CT Chest at 18-24 months. For patients at high risk (history of smoking or of other known risk factors), recommend CT Chest at 3-6 months, then CT Chest at 18-24 months. (Reference: Vikash) References: Vikash Driscoll et al. Guidelines for Management of Incidental Pulmonary Nodules Detected on CT Images: From the Fleischner Society 2017. Radiology. 2017;284(1):228-243.
[2024-08-01 20:21] LABS: Lactic Sepsis W/Reflex 2.1 mmol/L (0.5-2.2)
[2024-08-01 20:30] LABS: Ferritin 36 ng/mL (15-150); Iron 50 ug/dL (37-145); Percent Saturation 14.8 % (20-50); Total Iron Binding Capacity 336 mcg/dl; Unsaturated Iron Binding 286 ug/dL (112-347)
[2024-08-01 20:46] LABS: Vitamin B12 423 pg/mL (232-1245)
[2024-08-01 20:51] LABS: Thyroid Stimulating Hormone 0.46 uIU/mL (0.27-4.20)
[2024-08-01 20:52] LABS: LAB Peripheral Smear Sent for Review
[2024-08-01 20:53] LABS: Folate Level 9.8 ng/mL (4.8-37.3)
[2024-08-01] MEDS: HYDROmorphone 1 mg/mL INJ 1 mL 0.5 MG IVP (20:53)
[2024-08-01] MEDS: enoxaparin 40 mg/0.4 mL Syringe SUBCUT (20:57)
[2024-08-01] MEDS: levofloxacin-dextrose 5 % 750 MG/150 ML PREMIX 100 MG IV (20:58)
[2024-08-01 21:30] LABS: Free T4 Free Thyroxine 1.14 ng/dL (0.82-1.77)
[2024-08-01 21:49] LABS: Reflex Lactate Order REFLEX LACTIC ORDERD
[2024-08-01 22:11] LABS: Glucose Point of Care 131 mg/dL (70-110)
[2024-08-01 22:26] LABS: Lactic Acid level (Lactate) 2.9 mmol/L (0.5-2.2)
--- NOTE | 2024-08-01 23:02 | ECG_ITS ---
"[facility] Date: 2024-08-02 Pat Name: Colette Hernandez Department: Room: [facility] Gender: Female Business Process Coordinator: : 1960 Requested By: Kenneth Rocha Order Number: [id number] Ha MD: Corey Sharpe M.D. Measurements Intervals [place] Rate: 90 P: 0 LA: 0 QRS: 73 QRSD: 79 T: 66 QT: 357 QTc: 439 Interpretive Statements ATRIAL FIBRILLATION WITH ABERRANT CONDUCTION OR VENTRICULAR PREMATURE COMPLEXES LOW QRS VOLTAGE IN PRECORDIAL LEADS [QRS DEFLECTION < 1.0 mV IN CHEST LEADS] ABNORMAL RHYTHM ECG Compared to ECG 08/01/2024 16:55:36 Ventricular premature complex(es) now present Aberrant conduction of supraventricular beat(s) now present Low QRS voltage now present ST (T wave) deviation no longer present Electronically Signed On 08-03-2024 23:28:21 BOBBIN PAINTER by Corey Sharpe M.D. [id number]"
[2024-08-01 23:11] LABS: Troponin 5 6HR 10.13 ng/L (0-10)
[2024-08-01 23:12] LABS: Troponin 5 6HR Delta -5.87 ng/L (0-12)
[2024-08-02] VITALS (56 sets, daily range): BP systolic 85–145; BP diastolic 46–90; PULSE 58–121; RESP 12–26; TEMP 36.8; O2SAT 71–100; BMI 53.9
[2024-08-02] MEDS: dilTIAZem 100 MG in sodium chloride 0.9% (add-van) 100 ML 12.5 MG IV (00:08)
[2024-08-02 00:10] LABS: ABG PH Result 7.36 (7.35-7.45); Arterial Blood Gas Hematocrit 31.9 % (37-47); Base Excess ABG 16.6 mmol/L (-2.0-2.0); Blood Gas Allen Test Pos; Blood Gas Sample Site Radial, left; Blood Gas Sample Type Arterial; HCO3 ABG 45.1 mmol/L (22-26); Oxygen Device NC; PO2 ABG 53.6 mmHg (80.0-100.0)
[2024-08-02 00:11] LABS: ABG PCO2 79.6 mmHg (35-45)
[2024-08-02] MEDS: ipratropium-albuterol 3 mL Neb INHALATION ×3 (01:02→08:04)
[2024-08-02] MEDS: albumin 25 G/100 ML BAG 60 G IV (01:37)
[2024-08-02] MEDS: acetaZOLAMIDE 250 mg Tablet 500 MG PO ×2 (01:38→10:17)
[2024-08-02] MEDS: metOLazone 5 MG Tablet PO (01:38)
[2024-08-02] MEDS: FUROsemide 10 mg/mL SDV 10mL 80 MG IVP (01:39)
[2024-08-02 04:54] LABS: Basophils % 0.1 %; Hematocrit 36.9 % (36-47); Lymphocytes # 0.6 10^3/uL (0.8-4.8); Lymphocytes % 6.8 %; Mean Corpuscular HGB Conc 26.8 g/dL (30-55); Mean Corpuscular Volume 104.5 fl (85-98); Monocytes # 0.1 10^3/uL (0.2-0.9); Monocytes % 1.4 %; Neutrophils # 8.29 10^3/uL (1.8-7.7); Nucleated Red Blood Cells % 0 %; Platelet Count 251 10^3/cmm (157-399); Red Blood Count 3.53 10^6/uL (3.85-5.65); Red Cell Distribution Width 14.9 % (12.1-15.1); White Blood Count 9.11 10^3/uL (3.29-11.43)
[2024-08-02 05:19] LABS: Alanine Aminotransferase 8 U/L (0-33); Albumin Level 4.1 g/dL (3.5-5.2); Alkaline Phosphatase 119 U/L (35-105); Aspartate Amino Transferase 11 U/L (0-32); Blood Urea Nitrogen 17 mg/dL (8-23); Calcium 9.4 mg/dL (8.5-10.5); Chloride 89 mmol/L (98-107); Creatinine Clr Calc Pharmacy 140.8993; Glucose 138 mg/dL (65-115); Osmolality Calculated 294 mOsm/kg (285-295); Sodium 140 mmol/L (136-145); Total Bilirubin 0.7 mg/dL (0.15-1.2); Total Protein 7.1 g/dL (6.6-8.7)
[2024-08-02 05:26] LABS: Carbon Dioxide 44 mmol/L (22-29)
[2024-08-02] MEDS: pantoprazole 40 mg SDV IVP (06:20)
--- NOTE | 2024-08-02 08:57 | USCV_ITS ---
Colette Hernandez Age: 64 Gender: F : 1960 Exam Date: 08/02/2024 10:38 Ordering Phys: Temo Benavides MD Technologist: Exam Location: [facility] [place] Indication: chf BP: 130 / 64 HR: 84 Rhythm: Sinus Technical Quality: Adequate MEASUREMENTS (Male / Female) Normal Values 2D ECHO LV Diastolic Diameter PLAX 3.7 cm 4.2 - 5.9 / 3.9 - 5.3 cm IVS Diastolic Thickness 1.2 cm 0.6 - 1.0 / 0.6 - 0.9 cm IVS Systolic Thickness 1.6 cm LVPW Diastolic Thickness 1.2 cm 0.6 - 1.0 / 0.6 - 0.9 cm LVPW Systolic Thickness 1.3 cm LVOT Diameter 2.0 cm LV Ejection Fraction 2D Teich 52.0 % LV Ejection Fraction MOD 4C 50.9 % LV Ejection Fraction MOD 2C 56.3 % LV Ejection Fraction 2C AL 54.9 % LA Diameter 4.4 cm RA Systolic Volume 4C AL 99.3 ml RA Systolic Volume 4C MOD 94.7 ml Aorta at Sinotubular Diameter 3.3 cm M-MODE LA Ao Ratio MM 1.3 AV Cusp Separation MM 2.5 cm DOPPLER AV Peak Velocity 131.0 cm/s LVOT Peak Velocity 90.0 cm/s AV Area Cont Eq vti 2.5 cm squared AV Area Cont Eq pk 2.2 cm squared MV Peak Velocity 162.0 cm/s MV Area PHT 6.2 cm squared Mitral E to A Ratio 3.8 TV Peak Velocity 290.5 cm/s TR Peak Velocity 321.0 cm/s TR Peak Gradient 41.2 mmHg TV Peak E Velocity 125.0 cm/s PV Peak Velocity 82.0 cm/s FINDINGS Left Ventricle Technically limited quality echocardiogram because of poor ultrasonic windows. LV systolic function is normal with EF of 50-55%. No regional wall motion abnormalities are seen. Right Ventricle Normal in size and function Right Atrium Dilated Left Atrium Dilated Mitral Valve Mild mitral annular calcification. Trace mitral regurgitation. Aortic Valve Structurally normal aortic valve. No significant stenosis or regurgitation Tricuspid Valve Mild tricuspid regurgitation. RVSP is 40 to 45 mmHg. This is consistent with mild pulmonary hypertension. Pulmonic Valve Not well-visualized. Pericardium Normal Aorta Normal in size IVC Not well visualized CONCLUSIONS Technically limited quality echocardiogram because of poor ultrasonic windows. LV systolic function is normal with EF 50 to 55%. Biatrial enlargement Trace mitral regurgitation Mild tricuspid regurgitation. Mild pulmonary hypertension Corey Sharpe MD (Electronically Signed) Final Date: 03 August 2024 12:58 S
[2024-08-02] MEDS: budesonide 0.5 mg/2 mL Neb INHALATION ×2 (09:23→20:21)
[2024-08-02] MEDS: ipratropium 0.5 mg/2.5 mL Neb INHALATION ×3 (09:23→20:21)
[2024-08-02] MEDS: levalbuterol 0.63 mg/3 mL Neb INHALATION ×3 (09:23→20:21)
[2024-08-02 09:35] LABS: Estmated Average Glucose 100; Hemoglobin A1C 5.1 % (4.0-6.0)
[2024-08-02] MEDS: dilTIAZem 100 MG in sodium chloride 0.9% (add-van) 100 ML 10 MG IV (09:35)
[2024-08-02 09:44] LABS: Procalcitonin 0.05 ng/mL (0-0.5)
[2024-08-02 09:53] LABS: Glucose Point of Care 118 mg/dL (70-110)
[2024-08-02] MEDS: FUROsemide 10 mg/mL SDV 4mL 40 MG IVP ×2 (10:17→20:53)
[2024-08-02] MEDS: buPROPion SR (12 HR) 150 mg Tablet PO (10:17)
[2024-08-02] MEDS: aspirin 81 mg EC Tablet PO (10:17)
[2024-08-02] MEDS: sotalol 80 mg Tablet 160 MG PO ×2 (10:17→20:53)
[2024-08-02] MEDS: enoxaparin 150 mg/mL Syringe 140 MG SUBCUT ×2 (10:18→20:58)
[2024-08-02] MEDS: methylPREDNISolone sod succ 125 mg/2 mL INJ 40 MG IVP ×2 (10:18→16:37)
[2024-08-02] MEDS: perflutren protein-a microsphr 0.22 mg/mL SDV 3 mL IV (11:10)
[2024-08-02 11:24] LABS: Glucose Point of Care 128 mg/dL (70-110)
--- NOTE | 2024-08-02 11:45 | PC.SOCIAL ---
IMM Update pg 2 of IMM updated and reviewed w/ patient. Copy provided and copy dated, initialed and placed in chart.
--- NOTE | 2024-08-02 13:15 | P.PN_ITS ---
Subjective 2 Subjective: Admitted overnight. Currently on Cardizem drip of 10. Patient is awake and alert. Seen with family at the bedside. On 3 L of oxygen supplementation. Seems to be back her baseline mentation. Denies any nausea, vomiting, headache. Denies any chest pain currently. Complaining of back pain. Vitals/I&O/Wt Last Vital Signs Temp 98.2 F 08/02/24 04:00 Pulse 58 L 08/02/24 12:00 Resp 18 08/02/24 12:00 BP 112/76 08/02/24 12:00 Pulse Ox 91 08/02/24 12:00 O2 Del Method Nasal Cannula 08/02/24 09:26 O2 Flow Rate 3 08/02/24 09:26 FiO2 40 08/02/24 08:06 08/01/24 08/02/24 08/02/24 22:59 06:59 14:59 Intake Total 8.667 / 8.667 368.125 / 376.792 164.833 / 164.833 Output Total 4300 / 4300 1650 / 1650 Balance 8.667 / 8.667 -3931.875 / -3923.208 -1485.167 / -1485.167 Weight last 48 hrs Weight 144.918 kg Weight 144.918 kg Weight 147 kg Weight 113.398 kg Physical Exam 2 Narrative: General: No acute distress, AO x3, morbidly obese on 3 L of nasal cannula HEENT: PERRLA, pupils bilaterally equal and reactive Chest: Bilateral bronchial breath sounds occasional rhonchi but decreased air entry bilateral lower zone, fine crackles to midlung CVS: S1-S2 irregularly irregular, bradycardia, pansystolic murmur at fourth intercostal space 2/6, no gallops, no rubs Abdomen: Soft, nontender, no organomegaly, bowel sounds present Neuro: No focal deficits, no facial deformity, AO x3, power 3/5 in all limbs Urinary Catheter Management: Veras: Cath Placed During This Visit: yes Reason for Continuing Indwelling Catheter: Accurate Measurement of Urinary Output in Critically Ill Patients Urinary Catheter Date of Insertion: 08/01/24 Data 08/02/24 04:47 08/02/24 04:47 Micro: Microbiology 08/01/24 19:38 Blood Culture - Preliminary Blood SPECIMEN COLLECTED 08/01/24 19:30 Blood Culture - Preliminary Blood SPECIMEN COLLECTED A&P Assessment and plan (1) Atrial fibrillation with rapid ventricular response: Currently on Cardizem drip. Wean keeping heart rate below 100. Restart home dose of sotalol 160 mg twice daily. Depending on the heart rate will restart oral Cardizem. Takes 180 mg oral daily. Will plan to restart at 30 mg Q6. Takes Eliquis 5 mg twice daily at home. For now continue Lovenox 1 mg/kg body weight every 12 hourly. (2) Acute on chronic respiratory failure with hypoxia and hypercapnia: Most likely in setting of decompensated congestive heart failure along with COPD exacerbation. CT concerning for bilateral pleural effusion. Oxygen supplementation keeping saturation over 88%. BiPAP nightly or as needed. Patient seems to be at her baseline CO2 currently. Aggressive pulmonary toilet with incentive spirometry. (3) Acute on chronic heart failure with reduced ejection fraction and diastolic dysfunction: Last echocardiogram in 2022 shows an EF of 30 to 35%, severe hypokinesia of anterior, anteroseptal and apical segments, grade 2 diastolic dysfunction, mildly dilated RV with dilated RA and LA. Concern for acute decompensated congestive systolic heart failure currently. Continue with IV Lasix 40 mg twice daily. Concern for mild contraction alkalosis. Start on acetazolamide 500 mg oral daily. Fluid restriction to less than 1500 cc. Strict input output charting, daily weights. Veras catheterization. Out of bed to chair. Check echocardiogram. (4) COPD with acute exacerbation: Pulmicort twice daily, ipratropium, Xopenex every 6 hourly. Changed to Solu-Medrol 40 mg IV every 8 hours. Will plan to wean aggressively within next 24 hours. (5) SIRS (systemic inflammatory response syndrome): Low concerns for sepsis for now. Does have an open wound on the right knee. Apparently was sutured 4 weeks ago which she developed post fall. Mild purulence around the sutures. No concern for deep knee infection. History of MRSA infection in the past. Continue with levofloxacin. Add linezolid 600 mg oral twice daily. Will plan to finish a 5-day course. Wound care with mupirocin. Plan CODE STATUS: Discussed noted with the patient. with the DPOA. Full code. Carb consistent cardiac diet Protonix for PUD prophylaxis Continue care with ICU for now. Continue other chronic home medications including bupropion. Attestations 2 Medical Necessity Statement*: Requires further hospitalization for management of A-fib with RVR, acute on chronic systolic congestive heart failure leading to acute on chronic hypercapnic and hypoxic respiratory failure. Diagnoses Atrial fibrillation with rapid ventricular response I48.91 Acute on chronic respiratory failure with hypoxia and hypercapnia J96.21; J96.22 Acute on chronic heart failure with reduced ejection fraction and diastolic dysfunction I50.43 COPD with acute exacerbation J44.1 SIRS (systemic inflammatory response syndrome) R65.10
[2024-08-02 13:40] LABS: Bilirubin Urine Negative (Negative); Blood Urine Non-haemolysed trace (Negative); Glucose Urine UA Negative (Normal); Ketones Urine Negative (Negative); Leukocyte Esterase Urine 2+ (Negative); Nitrate Urine Negative (Negative); Protein Urine Negative (Negative); Specific Gravity, Urine 1.006 (1.005-1.030); Urine Appearance Clear (CLEAR); Urine Color Yellow (Yellow); Urobilinogen Urine 0.2 mg/dL (Negative)
[2024-08-02 13:46] LABS: Add Urine Microscopic? YES; Bacteria Urine None Seen /hpf; Hyaline Casts Urine 0-4 /lpf; Squamous Epithelial Cell Urine 0-5 /hpf (0-5); WBC Urine 21-50 /hpf (0-5)
[2024-08-02 13:58] LABS: Add Urine Culture? Yes
[2024-08-02] MEDS: dilTIAZem 30 mg Tablet PO ×2 (14:48→19:14)
[2024-08-02] MEDS: bacitracin ointment 28 gm 1 APPLIC TOPICAL ×2 (16:37→20:54)
[2024-08-02 16:58] LABS: Glucose Point of Care 161 mg/dL (70-110)
[2024-08-02] MEDS: linezolid 600 mg Tablet PO (19:14)
[2024-08-02 20:45] LABS: Glucose Point of Care 192 mg/dL (70-110)
[2024-08-02] MEDS: levofloxacin-dextrose 5 % 750 MG/150 ML PREMIX 100 MG IV (20:54)
[2024-08-02] MEDS: atorvastatin 40 mg Tablet PO (20:54)
[2024-08-03] VITALS (32 sets, daily range): BP systolic 73–149; BP diastolic 43–97; PULSE 56–121; RESP 13–26; TEMP 36.7–36.9; O2SAT 63–100
[2024-08-03] MEDS: methylPREDNISolone sod succ 125 mg/2 mL INJ 40 MG IVP ×2 (00:57→08:54)
[2024-08-03] MEDS: dilTIAZem 30 mg Tablet PO ×4 (00:57→20:24)
[2024-08-03] MEDS: levalbuterol 0.63 mg/3 mL Neb INHALATION ×4 (02:45→20:12)
[2024-08-03] MEDS: ipratropium 0.5 mg/2.5 mL Neb INHALATION ×4 (02:45→20:12)
[2024-08-03 04:54] LABS: Basophils % 0.1 %; Hematocrit 33.3 % (36-47); Lymphocytes # 0.8 10^3/uL (0.8-4.8); Lymphocytes % 5.1 %; Mean Corpuscular HGB Conc 28.8 g/dL (30-55); Mean Corpuscular Hemoglobin 28.4 pg (27-33); Mean Corpuscular Volume 98.5 fl (85-98); Mean Platelet Volume 11.9 fL (7.4-10.4); Monocytes # 0.5 10^3/uL (0.2-0.9); Monocytes % 3.2 %; Neutrophils # 13.85 10^3/uL (1.8-7.7); Neutrophils % 90.9 %; Nucleated Red Blood Cells % 0 %; Platelet Count 246 10^3/cmm (157-399); Red Blood Count 3.38 10^6/uL (3.85-5.65); Red Cell Distribution Width 15.1 % (12.1-15.1); White Blood Count 15.22 10^3/uL (3.29-11.43)
[2024-08-03 05:16] LABS: Alanine Aminotransferase 6 U/L (0-33); Albumin Level 3.5 g/dL (3.5-5.2); Alkaline Phosphatase 95 U/L (35-105); Anion Gap 10.9 (5-19); Aspartate Amino Transferase 13 U/L (0-32); Blood Urea Nitrogen 26 mg/dL (8-23); Calcium 9.1 mg/dL (8.5-10.5); Chloride 86 mmol/L (98-107); Creatinine Clr Calc Pharmacy 104.7282; Globulin 2.8 g/dL (1.3-4.6); Glomerular Filtration Rate 72.4 mL/min (90-130); Glucose 129 mg/dL (65-115); Osmolality Calculated 286 mOsm/kg (285-295); Sodium 135 mmol/L (136-145); Total Bilirubin 0.6 mg/dL (0.15-1.2); Total Protein 6.3 g/dL (6.6-8.7)
[2024-08-03 05:23] LABS: Carbon Dioxide 41 mmol/L (22-29); Potassium 2.9 mmol/L (3.5-5.1)
[2024-08-03] MEDS: potassium chloride ER 20 mEq Tablet 40 MEQ PO ×2 (06:03→08:42)
[2024-08-03] MEDS: linezolid 600 mg Tablet PO ×2 (06:03→17:52)
[2024-08-03 06:27] LABS: Procalcitonin 0.04 ng/mL (0-0.5)
[2024-08-03 06:33] LABS: Folate Level 8.7 ng/mL (4.8-37.3)
[2024-08-03] MEDS: budesonide 0.5 mg/2 mL Neb INHALATION ×2 (07:44→20:12)
[2024-08-03] MEDS: acetaZOLAMIDE 250 mg Tablet 500 MG PO (08:42)
[2024-08-03] MEDS: sotalol 80 mg Tablet 160 MG PO ×2 (08:42→20:23)
[2024-08-03] MEDS: aspirin 81 mg EC Tablet PO (08:42)
[2024-08-03] MEDS: buPROPion SR (12 HR) 150 mg Tablet PO (08:42)
[2024-08-03] MEDS: FUROsemide 10 mg/mL SDV 4mL 40 MG IVP (08:53)
[2024-08-03] MEDS: bacitracin ointment 28 gm 1 APPLIC TOPICAL ×3 (08:53→20:32)
[2024-08-03] MEDS: enoxaparin 150 mg/mL Syringe 140 MG SUBCUT (08:53)
[2024-08-03] MEDS: pantoprazole 40 mg SDV IVP (08:54)
[2024-08-03 09:12] LABS: Glucose Point of Care 235 mg/dL (70-110)
[2024-08-03] MEDS: insulin lispro 100 unit/1 mL SUBCUT ×2 (09:13→20:26)
[2024-08-03 12:31] LABS: Glucose Point of Care 101 mg/dL (70-110)
[2024-08-03 15:31] LABS: Anion Gap 13.2 (5-19); Blood Urea Nitrogen 31 mg/dL (8-23); Calcium 9.5 mg/dL (8.5-10.5); Carbon Dioxide 39 mmol/L (22-29); Chloride 86 mmol/L (98-107); Glomerular Filtration Rate 50.2 mL/min (90-130); Glucose 153 mg/dL (65-115); Osmolality Calculated 290 mOsm/kg (285-295); Potassium 3.2 mmol/L (3.5-5.1); Sodium 135 mmol/L (136-145)
--- NOTE | 2024-08-03 16:25 | P.PN_ITS ---
Subjective 2 Subjective: No acute events overnight. Seen with family at bedside. Sitting in recliner. States she is feeling a lot better. Denies any nausea, vomiting, headache. On 2 L of oxygen supplementation. Vitals/I&O/Wt Last Vital Signs Temp 98.4 F 08/03/24 08:00 Pulse 84 08/03/24 14:37 Resp 21 H 08/03/24 14:00 BP 73/55 08/03/24 14:00 Pulse Ox 92 08/03/24 14:00 O2 Del Method Nasal Cannula 08/03/24 13:13 O2 Flow Rate 2 08/03/24 13:13 FiO2 50 08/03/24 03:59 08/03/24 08/03/24 08/03/24 06:59 14:59 22:59 Intake Total 240 / 1164.916 480 / 480 Output Total 1700 / 4800 Balance -1460 / -3635.084 480 / 480 Weight last 48 hrs Weight 144.918 kg Weight 144.918 kg Weight 147 kg Weight 113.398 kg Physical Exam 2 Narrative: General: No acute distress, AO x3, morbidly obese on 3 L of nasal cannula HEENT: PERRLA, pupils bilaterally equal and reactive Chest: Bilateral bronchial breath sounds occasional rhonchi but decreased air entry bilateral lower zone, fine crackles to midlung CVS: S1-S2 irregularly irregular, bradycardia, pansystolic murmur at fourth intercostal space 2/6, no gallops, no rubs Abdomen: Soft, nontender, no organomegaly, bowel sounds present Neuro: No focal deficits, no facial deformity, AO x3, power 3/5 in all limbs Urinary Catheter Management: Veras: Cath Placed During This Visit: yes Reason for Continuing Indwelling Catheter: Accurate Measurement of Urinary Output in Critically Ill Patients Urinary Catheter Date of Insertion: 08/01/24 Data 08/03/24 04:08 08/03/24 14:59 Micro: Microbiology 08/02/24 11:30 Urine Culture - Preliminary Urine,Clean Catch 08/01/24 19:38 Blood Culture - Preliminary Blood NEGATIVE TO DATE 08/01/24 19:30 Blood Culture - Preliminary Blood NEGATIVE TO DATE 08/02/24 11:30 Bacterial Antigens - Final Urine Kidney A&P Assessment and plan (1) Atrial fibrillation with rapid ventricular response: RVR is resolved. Continue with home dose of sotalol 160 mg twice daily. Cardizem 30 mg Q6 hourly. Uptitrate if heart rate goes over 100. Takes 180 mg of oral Cardizem extended release at home. Switch back to home dose of Eliquis 5 mg twice daily. (2) Acute on chronic respiratory failure with hypoxia and hypercapnia: Most likely in setting of decompensated congestive heart failure along with COPD exacerbation. CT concerning for bilateral pleural effusion. Oxygen supplementation keeping saturation over 88%. BiPAP nightly or as needed. Patient seems to be at her baseline CO2 currently. Aggressive pulmonary toilet with incentive spirometry. (3) Acute on chronic heart failure with reduced ejection fraction and diastolic dysfunction: Last echocardiogram in 2022 shows an EF of 30 to 35%, severe hypokinesia of anterior, anteroseptal and apical segments, grade 2 diastolic dysfunction, mildly dilated RV with dilated RA and LA. Concern for acute decompensated congestive systolic heart failure currently. Patient is overall 7 L negative in 24 hours. Appreciate urine output. Switch to oral Lasix 40 mg daily from tomorrow. Continue with Diamox 500 mg oral daily for now. Fluid restriction to less than 1500 cc. Strict input output charting, daily weights. Veras catheterization. Out of bed to chair. Monitor BMP in afternoon. Replace potassium 80 mg. Will replace further potassium depending on the BMP in afternoon. Repeat echocardiogram shows an EF of 50 to 55% without regional wall motion abnormality, mild TR, mild pulmonary hypertension with RVSP of 45 mmHg. (4) COPD with acute exacerbation: Pulmicort twice daily, ipratropium, Xopenex every 6 hourly. Wean Solu-Medrol 40 mg twice daily. Will plan to wean aggressively within next 24 hours. (5) SIRS (systemic inflammatory response syndrome): Low concerns for sepsis for now. Does have an open wound on the right knee. Apparently was sutured 4 weeks ago which she developed post fall. Mild purulence around the sutures. No concern for deep knee infection. History of MRSA infection in the past. Continue with levofloxacin. Add linezolid 600 mg oral twice daily. Will plan to finish a 5-day course. Wound care with mupirocin. Plan CODE STATUS: Discussed noted with the patient. with the DPOA. Full code. Carb consistent cardiac diet Protonix for PUD prophylaxis Can transfer to [facility]. Continue other chronic home medications including bupropion. Discharge plan: Discussed in detail with the patient. Appreciate PT evaluation. Discussed about home with home health versus SNF. Patient would like to go home with home health when possible. Will plan to discharge in next 48 hours if remains hemodynamically stable and afebrile. Attestations 2 Medical Necessity Statement*: Requires further hospitalization for management of hypercapnic respiratory failure in setting of congestive heart failure, COPD exacerbation, A-fib with RVR Diagnoses Atrial fibrillation with rapid ventricular response I48.91 Acute on chronic respiratory failure with hypoxia and hypercapnia J96.21; J96.22 Acute on chronic heart failure with reduced ejection fraction and diastolic dysfunction I50.43 COPD with acute exacerbation J44.1 SIRS (systemic inflammatory response syndrome) R65.10
[2024-08-03] MEDS: FUROsemide 40 mg Tablet PO (17:03)
[2024-08-03] MEDS: potassium chloride ER 20 mEq Tablet 80 MEQ PO (17:03)
[2024-08-03] MEDS: methylPREDNISolone sod succ 40 mg/mL INJ IVP (17:04)
[2024-08-03 17:49] LABS: Glucose Point of Care 129 mg/dL (70-110)
[2024-08-03 20:11] LABS: Glucose Point of Care 189 mg/dL (70-110)
[2024-08-03] MEDS: apixaban 5 mg Tablet PO (20:24)
[2024-08-03] MEDS: atorvastatin 40 mg Tablet PO (20:24)
[2024-08-03] MEDS: levofloxacin-dextrose 5 % 750 MG/150 ML PREMIX 100 MG IV (20:27)
[2024-08-04] VITALS (34 sets, daily range): BP systolic 87–145; BP diastolic 35–85; PULSE 48–88; RESP 13–29; TEMP 36.4–36.6; O2SAT 86–100
[2024-08-04] MEDS: ipratropium 0.5 mg/2.5 mL Neb INHALATION ×4 (01:18→20:04)
[2024-08-04] MEDS: levalbuterol 0.63 mg/3 mL Neb INHALATION ×4 (01:18→20:04)
[2024-08-04] MEDS: dilTIAZem 30 mg Tablet PO ×4 (01:44→20:05)
[2024-08-04] MEDS: linezolid 600 mg Tablet PO ×2 (05:31→18:32)
[2024-08-04] MEDS: methylPREDNISolone sod succ 40 mg/mL INJ IVP (05:32)
[2024-08-04 05:38] LABS: Basophils % 0.1 %; Hematocrit 36.5 % (36-47); Lymphocytes # 0.6 10^3/uL (0.8-4.8); Lymphocytes % 3.6 %; Mean Corpuscular Hemoglobin 28.2 pg (27-33); Mean Corpuscular Volume 97.1 fl (85-98); Mean Platelet Volume 11.9 fL (7.4-10.4); Monocytes # 0.7 10^3/uL (0.2-0.9); Monocytes % 4.1 %; Neutrophils # 15.77 10^3/uL (1.8-7.7); Nucleated Red Blood Cells % 0 %; Platelet Count 285 10^3/cmm (157-399); Red Blood Count 3.76 10^6/uL (3.85-5.65); Red Cell Distribution Width 15.2 % (12.1-15.1); White Blood Count 17.33 10^3/uL (3.29-11.43)
[2024-08-04] MEDS: ondansetron 4 MG Tablet PO (05:38)
[2024-08-04 05:53] LABS: Alanine Aminotransferase 7 U/L (0-33); Albumin Level 3.6 g/dL (3.5-5.2); Alkaline Phosphatase 95 U/L (35-105); Aspartate Amino Transferase 13 U/L (0-32); Blood Urea Nitrogen 34 mg/dL (8-23); Calcium 9.2 mg/dL (8.5-10.5); Carbon Dioxide 38 mmol/L (22-29); Chloride 86 mmol/L (98-107); Creatinine Clr Calc Pharmacy 83.7825; Glucose 129 mg/dL (65-115); Magnesium 2.1 mg/dL (1.7-2.3); Osmolality Calculated 287 mOsm/kg (285-295); Phosphorus 3.2 mg/dL (2.5-4.5); Sodium 134 mmol/L (136-145); Total Bilirubin 0.5 mg/dL (0.15-1.2); Total Protein 6.6 g/dL (6.6-8.7)
[2024-08-04] MEDS: pantoprazole 40 mg SDV IVP (06:04)
[2024-08-04 08:05] LABS: Glucose Point of Care 155 mg/dL (70-110)
[2024-08-04] MEDS: budesonide 0.5 mg/2 mL Neb INHALATION ×2 (08:39→20:03)
[2024-08-04] MEDS: buPROPion SR (12 HR) 150 mg Tablet PO (09:22)
[2024-08-04] MEDS: aspirin 81 mg EC Tablet PO (09:22)
[2024-08-04] MEDS: sotalol 80 mg Tablet 160 MG PO ×2 (09:22→22:32)
[2024-08-04] MEDS: insulin lispro 100 unit/1 mL SUBCUT ×4 (09:22→20:21)
[2024-08-04] MEDS: apixaban 5 mg Tablet PO ×2 (09:22→20:15)
[2024-08-04] MEDS: acetaZOLAMIDE 250 mg Tablet 500 MG PO (09:22)
[2024-08-04] MEDS: bacitracin ointment 28 gm 1 APPLIC TOPICAL ×3 (09:23→20:10)
[2024-08-04] MEDS: potassium chloride ER 20 mEq Tablet 80 MEQ PO (11:32)
[2024-08-04 12:20] LABS: Glucose Point of Care 219 mg/dL (70-110)
--- NOTE | 2024-08-04 15:51 | P.PN_ITS ---
Subjective 2 Subjective: No acute events overnight. Today morning seen sitting up in recliner. Family at bedside. During examination patient's family is not feeling well and was transferred to ER. Patient denies any nausea, vomiting, headache. Appreciate urine output. Vitals/I&O/Wt Last Vital Signs Temp 97.9 F 08/04/24 15:10 Pulse 73 08/04/24 15:10 Resp 20 H 08/04/24 15:10 BP 91/64 08/04/24 15:10 Pulse Ox 97 08/04/24 15:10 O2 Del Method Nasal Cannula 08/04/24 13:41 O2 Flow Rate 3 08/04/24 13:41 FiO2 50 08/04/24 04:00 08/04/24 08/04/24 08/04/24 06:59 14:59 22:59 Intake Total 630 / 1830 832 / 832 Output Total 1000 / 5050 600 / 600 900 / 1500 Balance -370 / -3220 232 / 232 -900 / -668 Physical Exam 2 Narrative: General: No acute distress, AO x3, morbidly obese on 3 L of nasal cannula HEENT: PERRLA, pupils bilaterally equal and reactive Chest: Bilateral bronchial breath sounds occasional rhonchi but decreased air entry bilateral lower zone, fine crackles to midlung CVS: S1-S2 irregularly irregular, bradycardia, pansystolic murmur at fourth intercostal space 2/6, no gallops, no rubs Abdomen: Soft, nontender, no organomegaly, bowel sounds present Neuro: No focal deficits, no facial deformity, AO x3, power 3/5 in all limbs Urinary Catheter Management: Veras: Cath Placed During This Visit: yes Reason for Continuing Indwelling Catheter: Accurate Measurement of Urinary Output in Critically Ill Patients Urinary Catheter Date of Insertion: 08/01/24 Data 08/04/24 04:57 08/04/24 04:57 Micro: Microbiology 08/02/24 11:30 Urine Culture - Final Urine,Clean Catch A&P Assessment and plan (1) Atrial fibrillation with rapid ventricular response: RVR is resolved. Continue with home dose of sotalol 160 mg twice daily. Cardizem 30 mg Q6 hourly. Uptitrate if heart rate goes over 100. Takes 180 mg of oral Cardizem extended release at home. Switch back to home dose of Eliquis 5 mg twice daily. (2) Acute on chronic respiratory failure with hypoxia and hypercapnia: Most likely in setting of decompensated congestive heart failure along with COPD exacerbation. CT concerning for bilateral pleural effusion. Oxygen supplementation keeping saturation over 88%. BiPAP nightly or as needed. Patient seems to be at her baseline CO2 currently. Aggressive pulmonary toilet with incentive spirometry. (3) Acute on chronic heart failure with reduced ejection fraction and diastolic dysfunction: Last echocardiogram in 2022 shows an EF of 30 to 35%, severe hypokinesia of anterior, anteroseptal and apical segments, grade 2 diastolic dysfunction, mildly dilated RV with dilated RA and LA. Concern for acute decompensated congestive systolic heart failure currently. Patient is overall 7 L negative in 24 hours. Appreciate urine output. Switch to oral Lasix 40 mg daily from tomorrow. Continue with Diamox 500 mg oral daily for now. Fluid restriction to less than 1500 cc. Strict input output charting, daily weights. Veras catheterization. Out of bed to chair. Monitor BMP in afternoon. Replace potassium 80 mg. Will replace further potassium depending on the BMP in afternoon. Repeat echocardiogram shows an EF of 50 to 55% without regional wall motion abnormality, mild TR, mild pulmonary hypertension with RVSP of 45 mmHg. (4) COPD with acute exacerbation: Pulmicort twice daily, ipratropium, Xopenex every 6 hourly. Wean Solu-Medrol 40 mg twice daily. Will plan to wean aggressively within next 24 hours. (5) SIRS (systemic inflammatory response syndrome): Low concerns for sepsis for now. Does have an open wound on the right knee. Apparently was sutured 4 weeks ago which she developed post fall. Mild purulence around the sutures. No concern for deep knee infection. History of MRSA infection in the past. Continue with levofloxacin. Add linezolid 600 mg oral twice daily. Will plan to finish a 5-day course. Wound care with mupirocin. Plan CODE STATUS: Discussed noted with the patient. with the DPOA. Full code. Carb consistent cardiac diet Protonix for PUD prophylaxis Plan for the day: Patient sitting up in chair today. Switch Diamox 250 mg oral daily. Hold off on Lasix today. Replace 80 mg of oral potassium. Appreciate BMP. Creatinine at 1 with BUN of 34. Repeat BMP in afternoon for monitoring of hypokalemia. Change Solu-Medrol 40 mg IV daily. Continue with linezolid and Levaquin for now. Nebulization treatment Pulmicort, ipratropium Xopenex every 6 hours [facility]. Has remained hemodynamically stable. Discharge plan: Discussed in detail with the patient. Appreciate PT evaluation. Discussed about home with home health versus SNF. Patient would like to go home with home health when possible. Will plan to discharge in next 48 hours if remains hemodynamically stable and afebrile. Attestations 2 Medical Necessity Statement*: Requires further hospitalization for management of acute on chronic hypercapnic and hypoxic respiratory failure in setting of congestive heart failure, COPD exacerbation, A-fib with RVR Diagnoses Atrial fibrillation with rapid ventricular response I48.91 Acute on chronic respiratory failure with hypoxia and hypercapnia J96.21; J96.22 Acute on chronic heart failure with reduced ejection fraction and diastolic dysfunction I50.43 COPD with acute exacerbation J44.1 SIRS (systemic inflammatory response syndrome) R65.10
[2024-08-04 16:59] LABS: Anion Gap 13.6 (5-19); Blood Urea Nitrogen 35 mg/dL (8-23); Calcium 9.4 mg/dL (8.5-10.5); Carbon Dioxide 34 mmol/L (22-29); Chloride 92 mmol/L (98-107); Creatinine Clr Calc Pharmacy 93.0917; Glomerular Filtration Rate 63.2 mL/min (90-130); Glucose 118 mg/dL (65-115); Osmolality Calculated 291 mOsm/kg (285-295); Potassium 3.6 mmol/L (3.5-5.1); Sodium 136 mmol/L (136-145)
[2024-08-04 17:24] LABS: Glucose Point of Care 141 mg/dL (70-110)
[2024-08-04] MEDS: atorvastatin 40 mg Tablet PO (20:04)
[2024-08-04] MEDS: lanolin oint 7 gm 1 APPLIC TOPICAL (20:04)
[2024-08-04] MEDS: levofloxacin-dextrose 5 % 750 MG/150 ML PREMIX 100 MG IV (20:05)
[2024-08-04 20:21] LABS: Glucose Point of Care 145 mg/dL (70-110)
[2024-08-05] VITALS (15 sets, daily range): BP systolic 98–129; BP diastolic 51–76; PULSE 52–80; RESP 16–29; TEMP 36.1–36.4; O2SAT 94–99
[2024-08-05] MEDS: dilTIAZem 30 mg Tablet PO (02:03)
[2024-08-05] MEDS: ipratropium 0.5 mg/2.5 mL Neb INHALATION ×2 (02:19→08:51)
[2024-08-05] MEDS: levalbuterol 0.63 mg/3 mL Neb INHALATION ×2 (02:19→08:51)
[2024-08-05 05:11] LABS: Basophils % 0.1 %; Hematocrit 39.7 % (36-47); Lymphocytes # 0.9 10^3/uL (0.8-4.8); Mean Corpuscular HGB Conc 28.5 g/dL (30-55); Mean Corpuscular Volume 98.3 fl (85-98); Mean Platelet Volume 11.4 fL (7.4-10.4); Monocytes # 1.2 10^3/uL (0.2-0.9); Monocytes % 7.6 %; Neutrophils # 12.94 10^3/uL (1.8-7.7); Neutrophils % 85.2 %; Nucleated Red Blood Cells % 0 %; Platelet Count 246 10^3/cmm (157-399); Red Blood Count 4.04 10^6/uL (3.85-5.65); Red Cell Distribution Width 14.8 % (12.1-15.1); White Blood Count 15.18 10^3/uL (3.29-11.43)
[2024-08-05 05:27] LABS: Alanine Aminotransferase 9 U/L (0-33); Albumin Level 3.5 g/dL (3.5-5.2); Alkaline Phosphatase 87 U/L (35-105); Anion Gap 12.7 (5-19); Aspartate Amino Transferase 12 U/L (0-32); Blood Urea Nitrogen 35 mg/dL (8-23); Calcium 9.1 mg/dL (8.5-10.5); Carbon Dioxide 33 mmol/L (22-29); Chloride 95 mmol/L (98-107); Creatinine Clr Calc Pharmacy 93.0917; Globulin 3.2 g/dL (1.3-4.6); Glomerular Filtration Rate 63.2 mL/min (90-130); Glucose 119 mg/dL (65-115); Osmolality Calculated 293 mOsm/kg (285-295); Potassium 3.7 mmol/L (3.5-5.1); Sodium 137 mmol/L (136-145); Total Bilirubin 0.4 mg/dL (0.15-1.2); Total Protein 6.7 g/dL (6.6-8.7)
[2024-08-05 05:28] LABS: Magnesium 2.3 mg/dL (1.7-2.3)
[2024-08-05 05:29] LABS: Phosphorus 3.7 mg/dL (2.5-4.5)
[2024-08-05] MEDS: pantoprazole 40 mg SDV IVP (06:04)
[2024-08-05] MEDS: linezolid 600 mg Tablet PO (06:04)
[2024-08-05 08:26] LABS: Glucose Point of Care 110 mg/dL (70-110)
[2024-08-05] MEDS: budesonide 0.5 mg/2 mL Neb INHALATION (08:51)
[2024-08-05] MEDS: methylPREDNISolone sod succ 40 mg/mL INJ IVP (09:38)
[2024-08-05] MEDS: apixaban 5 mg Tablet PO (09:38)
[2024-08-05] MEDS: buPROPion SR (12 HR) 150 mg Tablet PO (09:39)
[2024-08-05] MEDS: acetaZOLAMIDE 250 mg Tablet PO (09:39)
[2024-08-05] MEDS: aspirin 81 mg EC Tablet PO (09:39)
[2024-08-05] MEDS: sotalol 80 mg Tablet 160 MG PO (09:40)
[2024-08-05] MEDS: bacitracin ointment 28 gm 1 APPLIC TOPICAL (09:43)
--- NOTE | 2024-08-05 11:40 | P.DS_ITS ---
Discharge Providers Date of Admission: 08/01/24 22:46 Date of Discharge: August 05, 2024 Attending Provider at Admission: Marychuy Akbar MD Attending Provider at Discharge: Temo Benavides MD Primary Care Provider: Kilo Dunham Diagnoses at Discharge Discharge Diagnosis (1) Atrial fibrillation with rapid ventricular response: Status: Acute (2) Acute on chronic respiratory failure with hypoxia and hypercapnia: Status: Acute (3) Acute on chronic heart failure with reduced ejection fraction and diastolic dysfunction: Status: Acute (4) COPD with acute exacerbation: Status: Acute (5) SIRS (systemic inflammatory response syndrome): Status: Acute Reason for Visit Reason for Visit: SOB Brief History: History as per HPI: Colette Hernandez is a 64 yo woman w/ COPD, Paroxysmal Afib, chronic HFrEF w/ diastolic dysfxn,chronic hypoxic respiratory failure prescribed 2L at night, but wears it also during the day when moving around, who presents to [facility]'s ED on 08/01/2024 with complaints of confusion that began 3 days ago and dyspnea that began last night. The patient states that 3 days ago her found her asleep on the table and when she woke up, she felt confused and had speech difficulties. The patient thought that she had a stroke, but her confusion and speech difficulties quickly resolved. Yesterday night, according to the patient's , the patient was confused and dypsneic. Her encouraged her to come to the hospital, but she declined. W/ increasing dyspnea, the patient told her daughter to call EMS. She endorses dizziness, CP, palpitations, diaphoresis, She denies syncope, falls, head trauma, fever, chills, In the ED, her vital signs were significant for tachycardia, tachypnea, and elevated BP as high as 171/99 mmHg. According to ED signout, patient's O2 sat was as low as 86% on 5L. Her labs showed no leukocytosis, but it did show macrocytic anemia. It also showed a bicarb of 47. An ABG was done that showed 7.2/>102/70.6, so she was placed on BiPAP. Repeat ABG after 2.5 hours of BiPAP with an FiO2 of 50% and a PEEP of 10 was 7.36/79.6/94. The patient's CXR showed patchy bibasilar interstitial and alveolar opacities with adjacent small pleural effusions. Her EKG showed A-fib with RVR, but no ST changes. Her troponin T was minimally elevated x 2. She was given DuoNebs x 1, 125 mg of Solu-Medrol x 1, 0.5 mg of Dilaudid x 1, and started on a diltiazem drip, prior to admission. Hospital Course Hospital Course Patient was admitted to the hospital further evaluation and management of acute on chronic hypoxic and hypercapnic respiratory failure in setting of COPD exacerbation and congestive heart failure. On admission she was found to be in A-fib with RVR and started on Cardizem drip. She was started on her home dose of sotalol and oral Cardizem after which the drip was weaned off. Patient responded well to the inhalation treatment, systemic steroids and diuretic therapy. She has been back to her baseline open supplementation for last 48 hours. He is working well with physical therapy. She has been discharged in hemodynamically stable condition on oral sotalol twice daily, dose of Cardizem has been changed to 120 mg oral daily. She is to take Lasix 40 mg oral daily along with Diamox 250 mg every other day. She is to take oral linezolid and Levaquin for next 5 days along with steroid taper. She is counseled in detail to continue using her BiPAP as prescribed. She is to follow-up with a primary care provider within the next 2 weeks. Continue using bacitracin ointment for wound care. She is also advised to follow-up with surgical team within next 1 week for removal of sutures. Safe discharge plan discussed in detail with the patient and home health has been arranged. Physical Exam Narrative: General: No acute distress, AO x3, morbidly obese on 3 L of nasal cannula HEENT: PERRLA, pupils bilaterally equal and reactive Chest: Bilateral bronchial breath sounds occasional rhonchi but decreased air entry bilateral lower zone, fine crackles to midlung CVS: S1-S2 irregularly irregular, bradycardia, pansystolic murmur at fourth intercostal space 2/6, no gallops, no rubs Abdomen: Soft, nontender, no organomegaly, bowel sounds present Neuro: No focal deficits, no facial deformity, AO x3, power 3/5 in all limbs Urinary Catheter Management: Veras: Cath Placed During This Visit: yes Reason for Continuing Indwelling Catheter: Accurate Measurement of Urinary Output in Critically Ill Patients Urinary Catheter Date of Insertion: 08/01/24 Discharge Data Studies Completed and Pending Completed Studies During Hospitalization Category Date Time Status CT chest wo con [id number] Routine Cat Scan 08/01/24 20:04 Completed XR chest 1V portable [id number] Stat Exams 08/01/24 16:59 Completed CV. echo wo/w contrast [id number] Routine Ultrasound 08/02/24 08:57 Completed Pending at discharge Category Date Time Status Blood Culture Stat Lab 08/01/24 19:38 Results Radiology Impressions Chest X-Ray 08/01/24 16:59 IMPRESSION: Patchy bibasilar interstitial and alveolar opacities with adjacent small pleural effusions. Chest CT 08/01/24 20:04 IMPRESSION: 1. Cardiomegaly associated with mild interstitial edema and mild bilateral pleural effusions. 2. Left upper lobe pulmonary nodules as detailed. Follow-up per Fleischner criteria recommended. 3. Atherosclerosis including coronary artery calcification. 4. Dilated pulmonary arterial trunk suggesting pulmonary arterial hypertension. For patients at low risk (minimal or absent history of smoking and of other known risk factors), recommend CT Chest at 3-6 months, then consider CT Chest at 18-24 months. For patients at high risk (history of smoking or of other known risk factors), recommend CT Chest at 3-6 months, then CT Chest at 18-24 months. (Reference: Vikash) References: Vikash Driscoll, et al. Guidelines for Management of Incidental Pulmonary Nodules Detected on CT Images: From the Fleischner Society 2017. Radiology. 2017;284(1):228-243. Echocardiogram: CONCLUSIONS Technically limited quality echocardiogram because of poor ultrasonic windows. LV systolic function is normal with EF 50 to 55%. Biatrial enlargement Trace mitral regurgitation Mild tricuspid regurgitation. Mild pulmonary hypertension Corey Sharpe MD (Electronically Signed) Final Date: 03 August 2024 12:58 Laboratory Results WBC 15.18 10^3/uL (3.29-11.43) H 08/05/24 04:37 RBC 4.04 10^6/uL (3.85-5.65) 08/05/24 04:37 Hgb 11.30 g/dL (11.27-16.99) 08/05/24 04:37 Hct 39.7 % (36-47) 08/05/24 04:37 MCV 98.3 fl (85-98) H 08/05/24 04:37 MCH 28.0 pg (27-33) 08/05/24 04:37 MCHC 28.5 g/dL (30-55) L 08/05/24 04:37 RDW 14.8 % (12.1-15.1) 08/05/24 04:37 Plt Count 246 10^3/cmm (157-399) 08/05/24 04:37 MPV 11.4 fL (7.4-10.4) H 08/05/24 04:37 Neut % (Auto) 85.2 % 08/05/24 04:37 Lymph % (Auto) 6.0 % 08/05/24 04:37 [place] % (Auto) 7.6 % 08/05/24 04:37 Eos % (Auto) 0.0 % 08/05/24 04:37 Baso % (Auto) 0.1 % 08/05/24 04:37 Neut # (Auto) 12.94 10^3/uL (1.8-7.7) H 08/05/24 04:37 Lymph # (Auto) 0.9 10^3/uL (0.8-4.8) 08/05/24 04:37 [place] # (Auto) 1.2 10^3/uL (0.2-0.9) H 08/05/24 04:37 Eos # (Auto) 0.0 10^3/uL (0.0-0.8) 08/05/24 04:37 Baso # (Auto) 0.0 10^3/uL (0.0-0.1) 08/05/24 04:37 Nucleated RBC % (auto) 0 % 08/05/24 04:37 Nucleated RBCs # 0.0 /100WBC 08/05/24 04:37 Peripher Smr Path Cons Sent for review 08/01/24 17:25 PT 13.20 SECONDS (12.1-14.9) 08/01/24 17:25 INR 0.94 (0.8-1.2) 08/01/24 17:25 APTT 25.1 SECONDS (23.9-36.7) 08/01/24 17:25 Specimen Type Arterial 08/01/24 23:59 Sample Site Radial, left 08/01/24 23:59 ABG pH 7.36 (7.35-7.45) 08/01/24 23:59 ABG pCO2 79.6 mmHg (35-45) H* 08/01/24 23:59 ABG pO2 53.6 mmHg (80.0-100.0) L 08/01/24 23:59 ABG PO2/FiO2 Ratio 188 08/01/24 19:40 ABG HCO3 45.1 mmol/L (22-26) H 08/01/24 23:59 ABG O2 Saturation 98.3 08/01/24 19:40 ABG Base Excess 16.6 mmol/L (-2.0-2.0) H 08/01/24 23:59 Morro Test Pos 08/01/24 23:59 A-a O2 Gradient 22.4 mmHg (5-10) H 08/01/24 19:40 Hematocrit 31.9 % (37-47) L 08/01/24 23:59 Hgb O2 Saturation 95.9 % (95-100) 08/01/24 19:40 Carboxyhemoglobin 1.6 %THgb (0.4-20.1) 08/01/24 19:40 Methemoglobin 0.8 % (0.4-1.5) 08/01/24 19:40 Total Hemoglobin 10.8 g/dL (12-16) L 08/01/24 19:40 Sodium 143.0 mmol/L (131-143) 08/01/24 19:40 Potassium 4.7 mmol/L (3.5-5.0) 08/01/24 19:40 Glucose 122.0 mg/dL (70-115) H 08/01/24 19:40 Ionized Calcium 1.2 mmol/L (1.1-1.4) 08/01/24 19:40 O2 Delivery Device Nc 08/01/24 23:59 O2 Liters/Min 6.0 % 08/01/24 23:59 FiO2 50.0 % 08/01/24 19:40 PEEP 10.0 cmH20 08/01/24 19:40 Elevator Tender ID [email or web address] 08/01/24 23:59 Sodium 137 mmol/L (136-145) 08/05/24 04:37 Potassium 3.7 mmol/L (3.5-5.1) 08/05/24 04:37 Chloride 95 mmol/L (98-107) L 08/05/24 04:37 Carbon Dioxide 33 mmol/L (22-29) H 08/05/24 04:37 Anion Gap 12.7 (5-19) 08/05/24 04:37 BUN 35 mg/dL (8-23) H 08/05/24 04:37 Creatinine 0.9 mg/dL (0.5-0.9) 08/05/24 04:37 GFR Calculation 63.2 mL/min (90-130) L 08/05/24 04:37 Glucose 119 mg/dL (65-115) H 08/05/24 04:37 POC Glucose 110 mg/dL (70-110) 08/05/24 07:50 Estimat Average Glucose 100 08/02/24 04:47 Hemoglobin A1c 5.1 % (4.0-6.0) 08/02/24 04:47 Calculated Osmolality 293 mOsm/kg (285-295) 08/05/24 04:37 Lactic Acid 2.1 mmol/L (0.5-2.2) 08/01/24 19:30 Lactic Acid (Sepsis) 2.9 mmol/L (0.5-2.2) H 08/01/24 22:04 Calcium 9.1 mg/dL (8.5-10.5) 08/05/24 04:37 Phosphorus 3.7 mg/dL (2.5-4.5) 08/05/24 04:37 Magnesium 2.3 mg/dL (1.7-2.3) 08/05/24 04:37 Iron 50 ug/dL (37-145) 08/01/24 19:30 TIBC 336 mcg/dl 08/01/24 19:30 % Saturation 14.8 % (20-50) L 08/01/24 19:30 Unsat Iron Binding 286 ug/dL (112-347) 08/01/24 19:30 Ferritin 36 ng/mL (15-150) 08/01/24 19:30 Total Bilirubin 0.4 mg/dL (0.15-1.2) 08/05/24 04:37 AST 12 U/L (0-32) 08/05/24 04:37 ALT 9 U/L (0-33) 08/05/24 04:37 Alkaline Phosphatase 87 U/L (35-105) 08/05/24 04:37 Troponin T Baseline 16 ng/L (0-10) H 08/01/24 17:25 Troponin T 120 Minute 14.70 ng/L (0-10) H 08/01/24 19:30 Delta Troponin T -1.30 ABS# (0-10) L 08/01/24 19:30 Troponin T Hi Sens 6Hr 10.13 ng/L (0-10) H 08/01/24 22:50 Troponin T Hi Sens 6Hr Delta -5.87 ng/L (0-12) L 08/01/24 22:50 NT-Pro-B Natriuret Pep 3118 pg/mL (0-125) H 08/01/24 17:25 Total Protein 6.7 g/dL (6.6-8.7) 08/05/24 04:37 Albumin 3.5 g/dL (3.5-5.2) 08/05/24 04:37 Globulin 3.2 g/dL (1.3-4.6) 08/05/24 04:37 Vitamin B12 423 pg/mL (232-1245) 08/01/24 19:30 Folate 8.7 ng/mL (4.8-37.3) 08/03/24 04:08 Procalcitonin 0.04 ng/mL (0-0.5) 08/03/24 04:05 TSH 0.46 uIU/mL (0.27-4.20) 08/01/24 19:30 Free T4 1.14 ng/dL (0.82-1.77) 08/01/24 19:30 Urine Color Yellow (Yellow) 08/02/24 11:30 Urine Appearance Clear (CLEAR) 08/02/24 11:30 Urine pH 8.0 (5-7) A 08/02/24 11:30 Ur Specific [place] 1.006 (1.005-1.030) 08/02/24 11:30 Urine Protein Negative (Negative) 08/02/24 11:30 Urine Glucose (UA) Negative (Normal) 08/02/24 11:30 Urine Ketones Negative (Negative) 08/02/24 11:30 Urine Blood Non-haemolysed trace (Negative) 08/02/24 11:30 Urine Nitrate Negative (Negative) 08/02/24 11:30 Urine Bilirubin Negative (Negative) 08/02/24 11:30 Urine Urobilinogen 0.2 mg/dL (Negative) 08/02/24 11:30 Ur Leukocyte Esterase 2+ (Negative) A 08/02/24 11:30 Urine RBC 3-5 /hpf (0-2) 08/02/24 11:30 Urine WBC 21-50 /hpf (0-5) H 08/02/24 11:30 Ur Squamous Epith Cells 0-5 /hpf (0-5) 08/02/24 11:30 Amorphous Sediment Not Reportable 08/02/24 11:30 Urine Bacteria None seen /hpf (NONE) 08/02/24 11:30 Hyaline Casts 0-4 /lpf H 08/02/24 11:30 SARS-CoV-2 Ag (Rapid) Negative (Negative) 08/01/24 18:15 Vitals Last Vital Signs Temp 97.0 F L 08/05/24 08:00 Pulse 65 08/05/24 10:00 Resp 22 H 08/05/24 10:00 BP 123/70 08/05/24 10:00 Pulse Ox 97 08/05/24 10:00 O2 Del Method Nasal Cannula 08/05/24 08:51 O2 Flow Rate 3 08/05/24 08:51 FiO2 28 08/05/24 03:21 Discharge Plan Discharge Patient Disposition: Home Health Service Condition: Stable Prescriptions: New acetazolamide 250 mg Tablet 250 mg PO EVERY OTHER DAY 30 Days Qty: 15 0RF bacitracin 500 unit/gram Ointment 1 applic topical TID Qty: 14 0RF aspirin 81 mg Tablet,Delayed Release (Dr/Ec) 81 mg PO DAILY Qty: 30 0RF linezolid 600 mg Tablet 600 mg PO Q12H Qty: 8 0RF prednisone 10 mg tablet See Taper PO DIRECTED Qty: 42 0RF Taper: predniSONE 60-10 60 mg Daily for 2 Days and 0 Hour 50 mg Daily for 2 Days and 0 Hour 40 mg Daily for 2 Days and 0 Hour 30 mg Daily for 2 Days and 0 Hour 20 mg Daily for 2 Days and 0 Hour 10 mg Daily for 2 Days and 0 Hour Rx Instructions: see taper instructions levofloxacin 500 mg tablet 500 mg PO Q24H 5 Days Qty: 5 0RF diltiazem HCl [Cardizem CD] 120 mg capsule,extended release 24hr 120 mg PO Q24H Qty: 30 0RF furosemide [Lasix] 40 mg tablet 40 mg PO DAILY Qty: 30 0RF Continued Eliquis 5 mg Tablet 5 mg PO BID@0900,2100 Qty: 60 0RF sotalol 160 mg tablet 160 mg PO Q12H Qty: 60 0RF atorvastatin 40 mg tablet 40 mg PO BEDTIME Qty: 30 0RF bupropion HCl 150 mg tablet sustained-release 12 hr 150 mg PO DAILY Qty: 10 0RF omeprazole 40 mg capsule,delayed release(DR/EC) 40 mg PO DAILY fluticasone propion-salmeterol [Advair HFA] 115-21 mcg/actuation HFA aerosol inhaler 2 puff INHALATION Q12H Discontinued losartan 50 mg Tablet 50 mg PO DAILY Qty: 30 0RF diltiazem HCl 180 mg capsule,extended release 24hr 180 mg PO DAILY Discharge Orders: Discharge Order (Routine); Ordered 08/05/24 Ordered By: Temo Benavides Referrals: Kilo Dunham [Primary Care Provider] - 08/08/24 10:00 am Discharge Diet: Cardiac Discharge Activity: Resume usual activity and Increase activity as tolerated Patient Instructions: Acetazolamide (By mouth), Diltiazem (By mouth), Furosemide (By mouth), Prednisone (By mouth), Aspirin (By mouth), Levofloxacin (By mouth), Linezolid (By mouth), Bacitracin (On the skin), Opioid Safety, Pain Management Activity Restrictions/Additional Instructions: Restrict fluid intake to less than 1500 cc, salt intake to less than 2 g daily. Advised to check his weight daily at home. Is advised that weight today would be the dry weight and if body weight increases by around 5 pounds, patient is to take an extra dose of Lasix daily till body weight comes down to weight today. If not able to come down to dry body weight in 1 week, then is to call cardiology office for further recommendations. Patient was counseled in detail to take medications regularly as prescribed. Take Diamox every other day. Please follow-up with your primary care provider within next 10 days. Repeat BMP with a primary care provider on your next appointment. Dose of Cardizem has been changed to 120 mg oral daily Take prednisone taper as prescribed. Continue using bacitracin ointment on your wound for next 1 week. Follow-up with the surgeon for suture removal within next 1 week. Linezolid and Levaquin are the antibiotic which you should take for next 4 days. Losartan has been withheld for now. Discharge Attestations Time Spent in Discharge Care*: greater than 30 min Specific Discharge Activities: educating patient, educating and/or supporting family/caregiver, discussing with pcp/other providers, discussing with registered nurse hh case manager/social workers/dc planners, documenting/other paperwork and evaluating patient/reviewing data Status at Discharge: Cognitive status at discharge: cognitively intact , Behavioral status at discharge: cooperative , Functional status at discharge: uses cane/walker , Overall status at discharge: patient is back to baseline Quality Metrics Clinical Quality Measures [ No reported AMI, CVA or VTE this stay] Coding Level of Care Code 34951 Total time (in minutes) for Discharge: 60 Diagnoses Atrial fibrillation with rapid ventricular response I48.91 Acute on chronic respiratory failure with hypoxia and hypercapnia J96.21; J96.22 Acute on chronic heart failure with reduced ejection fraction and diastolic dysfunction I50.43 COPD with acute exacerbation J44.1 SIRS (systemic inflammatory response syndrome) R65.10
[2024-08-05 12:00] LABS: Glucose Point of Care 145 mg/dL (70-110)
[2024-08-05 12:43] LABS: Glucose Point of Care 133 mg/dL (70-110)
--- NOTE | 2024-08-05 16:06 | PC.SOCIAL ---
IMM updated IMM dated and initialed, copy given to patient and copy placed in chart.
== END 2024-08-05 12:41 | disposition home health service (06) | DRG 291 ==
LOC: ER 20:20 → ICU 22:46 → MEDSURG 08-05 11:39
PROVIDERS: Emergency Medicine; Admitting Provider Internal Medicine; Emergency Provider Emergency Medicine; PCP Family Medicine; Visit Provider Student in an Organized Health Care Education/Training Program
DX: I50.33 Acute on chronic diastolic (congestive) heart failure (principal); J96.21 Acute and chronic respiratory failure with hypoxia; J96.22 Acute and chronic respiratory failure with hypercapnia; J44.1 Chronic obstructive pulmonary disease with (acute) exacerbation; R65.10 Systemic inflammatory response syndrome (SIRS) of non-infectious origin without acute organ dysfunction; I48.0 Paroxysmal atrial fibrillation; Z99.81 Dependence on supplemental oxygen; Z87.891 Personal history of nicotine dependence; I11.0 Hypertensive heart disease with heart failure; E78.5 Hyperlipidemia, unspecified; D53.9 Nutritional anemia, unspecified; Z86.14 Personal history of Methicillin resistant Staphylococcus aureus infection; Z79.01 Long term (current) use of anticoagulants; Z79.82 Long term (current) use of aspirin
CPT/HCPCS: 36415; 36416; 36600; 51702; 71045; 71250; 80048; 80051; 80053; 80503; 81001; 82330; 82607; 82728; 82746; 82803; 82805; 82962; 83036; 83540; 83550; 83605; 83735; 83880; 84100; 84145; 84439; 84443; 84484; 85025; 85610; 85730; 86403; 87040; 87086; 87426; 93005; 94640; 94660; 96365; 96366; 96372; 96374; 96375; 96376; 97116; 97162; 97165; 97530; 99291; C8929; J1171; J1650; J1815; J1940; J1956; J2470; J2919; J3490; J7614; J7626; J7644; P9046; Q0162

== ENCOUNTER 2024-10-15 01:38 | Inpatient (IN) | payer MEDICARE, SELFPAY ==
[2024-10-15] VITALS (96 sets, daily range): BP systolic 64–157; BP diastolic 42–117; PULSE 92–160; RESP 11–24; TEMP 35.8–37.2; O2SAT 89–100; BMI 49.9
--- NOTE | 2024-10-15 01:46 | XRR_ITS ---
PROCEDURE INFORMATION: Exam: XR Chest Exam date and time: 10/15/2024 1:56 AM Age: 64 years old Clinical indication: Chest pressure and chest wall pain; Additional info: Chest pain tachycardia TECHNIQUE: Imaging protocol: Radiologic exam of the chest. Views: 1 view. COMPARISON: CT chest wo con [id number] 08/01/2024 8:29 PM FINDINGS: Lungs: Mild prominence of the pulmonary interstitium bilaterally. Negative for focal pulmonary consolidation. Pleural spaces: Blunted costophrenic angles. Possible small pleural effusions. Negative for pneumothorax. Heart/Mediastinum: Mildly enlarged cardiomediastinal silhouette. Bones/joints: Unremarkable. XR/XR chest 1V portable [id number] IMPRESSION: 1. No focal pulmonary consolidation. 2. Interstitial edema not excluded.
--- NOTE | 2024-10-15 01:47 | W.ED.ARRPALP ---
HPI - Arrhythmia/Palpitations General: Chief Complaint: Shortness of Breath/Dyspnea Stated Complaint: A Fib RVR Time Seen by Provider: 10/15/24 01:46 History of Present Illness: Patient presents to the ER by EMS with complaints of tachycardia with shortness of breath. Patient stated she been feeling bad for about a week been going downhill. But today noticed her heart was racing and she is way more short of breath than normal. Patient does have a history of COPD is on home oxygen and A-fib with RVR. Patient is on Eliquis. Related Data Home Medications ?Medication ?Instructions ?Recorded ?Confirmed fluticasone propionate 115 2 puff inhalation Q12H 08/02/24 08/02/24 mcg-salmeterol 21 mcg/actuation HFA inhaler (Advair HFA) omeprazole 40 mg capsule,delayed 40 mg PO DAILY 08/02/24 08/02/24 release Previous Rx's ?Medication ?Instructions ?Recorded apixaban 5 mg tablet (Eliquis) 5 mg PO BID@0900,2100 #60 tabs 06/09/23 atorvastatin 40 mg tablet 40 mg PO BEDTIME #30 tabs 06/10/23 bupropion HCl 150 mg tablet,12 hr 150 mg PO DAILY #10 tabs 06/10/23 sustained-release sotalol 160 mg tablet 160 mg PO Q12H #60 tabs 06/10/23 aspirin 81 mg tablet,delayed 81 mg PO DAILY #30 tabs 08/05/24 release bacitracin 500 unit/gram topical 1 applic topical TID #14 grams 08/05/24 ointment diltiazem HCl 120 mg 120 mg PO Q24H #30 caps 08/05/24 capsule,extended release 24 hr (Cardizem CD) furosemide 40 mg tablet (Lasix) 40 mg PO DAILY #30 tabs 08/05/24 linezolid 600 mg tablet 600 mg PO Q12H #8 tabs 08/05/24 prednisone 10 mg tablet See Taper PO DIRECTED #42 tabs 08/05/24 Allergies Allergy/AdvReac Type Severity Reaction Status Date / Time No Known Allergies Allergy Verified 10/15/24 01:49 Review of Systems General: Reports: 10 or more systems reviewed and unremarkable except in HPI and below PFSH ED PFSH: Medical History Morbid obesity Atrial fibrillation with RVR On home oxygen therapy COPD (chronic obstructive pulmonary disease) Family History Mother Atrial fibrillation Father Heart attack Other CAD (coronary artery disease) Social History Smoking and tobacco/nicotine status: former use of tobacco/nicotine Alcohol intake: never Substance/Drug Use: never Caregiver/support person: Yes Lives independently: Yes Household members: spouse and family Housing: House Marital status: Physical Exam Const: COMMON NORMALS: no acute distress, average body habitus (Morbidly obese), patient oriented x3, no limitations, healthy appearing, alert and well nourished HENMT: COMMON NORMALS: normocephalic, atraumatic, hearing grossly normal bilaterally, external ears normal, Normal external nose present, moist oral mucous membranes and oropharynx normal HEAD & SCALP: normocephalic and atraumatic NOSE: Normal external nose present EXTERNAL EAR: Yes external ears normal Neck/C-Spine: COMMON NORMALS: no JVD Chest: COMMONS NORMALS: normal inspection of the chest and normal palpation of entire chest wall Resp: COMMON NORMALS: normal respiratory effort, No retractions, No use of accessory muscles and clear to auscultation bilaterally AUSCULTATION: clear to auscultation bilaterally Cardio: COMMON NORMALS: no JVD, S1 normal heart sound present, S2 normal heart sound present, No gallops present (Cardio), No clicks present (Cardio), No murmurs present (Cardio) and No rub (Cardio); negative for regular rate (Irregularly irregular tachycardic rhythm) RATE: abnormal rate (Irregularly irregular tachycardic rhythm) HEART SOUNDS: S1 normal heart sound present and S2 normal heart sound present GI: COMMON NORMALS: Normal to inspection, nondistended, normoactive bowel sounds present, Soft to palpation, non-tender, No hepatosplenomegaly present and no masses PALPATION: Yes Soft to palpation and Yes No hepatosplenomegaly present Neuro: COMMON NORMALS: patient oriented x3 SENSORIUM/ORIENTATION: Yes alert Course Vital Signs: Vital signs: Vital Signs Temperature 98.0 F 10/15/24 01:39 Pulse Rate 109 H 10/15/24 02:04 Respiratory Rate 20 H 10/15/24 02:04 Blood Pressure 127/82 10/15/24 02:04 Pulse Oximetry 100 10/15/24 02:04 Oxygen Delivery Me thod Nasal Cannula 10/15/24 02:04 Oxygen Flow Rate 4 10/15/24 02:04 MDM - Arrhythmia/Palpitations Medical Decision Making Patient was given 25 mg Cardizem bolus and put on a Cardizem drip and titrated up to 15 mg an hour. This did not affect her rate. Patient will be placed on amiodarone drip. These results was discussed with the patient and Dr. Rizvi Will place patient in CSU. Medical Records I reviewed the patient's medical records. Lab Data I reviewed the patient's lab results. 10/15/24 01:54 10/15/24 01:54 Laboratory Results WBC 12.38 10^3/uL (3.29-11.43) H 10/15/24 01:54 RBC 3.72 10^6/uL (3.85-5.65) L 10/15/24 01:54 Hgb 10.20 g/dL (11.27-16.99) L 10/15/24 01:54 Hct 39.0 % (36-47) 10/15/24 01:54 MCV 104.8 fl (85-98) H 10/15/24 01:54 MCH 27.4 pg (27-33) 10/15/24 01:54 MCHC 26.2 g/dL (30-55) L 10/15/24 01:54 RDW 15.7 % (12.1-15.1) H 10/15/24 01:54 Plt Count 382 10^3/cmm (157-399) 10/15/24 01:54 MPV 11.1 fL (7.4-10.4) H 10/15/24 01:54 Neut % (Auto) 79.4 % 10/15/24 01:54 Lymph % (Auto) 12.2 % 10/15/24 01:54 [place] % (Auto) 7.2 % 10/15/24 01:54 Eos % (Auto) 0.5 % 10/15/24 01:54 Baso % (Auto) 0.3 % 10/15/24 01:54 Neut # (Auto) 9.83 10^3/uL (1.8-7.7) H 10/15/24 01:54 Lymph # (Auto) 1.5 10^3/uL (0.8-4.8) 10/15/24 01:54 [place] # (Auto) 0.9 10^3/uL (0.2-0.9) 10/15/24 01:54 Eos # (Auto) 0.1 10^3/uL (0.0-0.8) 10/15/24 01:54 Baso # (Auto) 0.0 10^3/uL (0.0-0.1) 10/15/24 01:54 Nucleated RBC % (auto) 0 % 10/15/24 01:54 Nucleated RBCs # 0.0 /100WBC 10/15/24 01:54 PT 13.50 SECONDS (12.1-14.9) 10/15/24 01:54 INR 0.96 (0.8-1.2) 10/15/24 01:54 Sodium 142 mmol/L (136-145) 10/15/24 01:54 Potassium 4.7 mmol/L (3.5-5.1) 10/15/24 01:54 Chloride 93 mmol/L (98-107) L 10/15/24 01:54 Carbon Dioxide 40 mmol/L (22-29) H 10/15/24 01:54 Anion Gap 13.7 (5-19) 10/15/24 01:54 BUN 19 mg/dL (8-23) 10/15/24 01:54 Creatinine 0.6 mg/dL (0.5-0.9) 10/15/24 01:54 GFR Calculation 101.0 mL/min (90-130) 10/15/24 01:54 Glucose 162 mg/dL (65-115) H 10/15/24 01:54 Calculated Osmolality 300 mOsm/kg (285-295) H 10/15/24 01:54 Calcium 9.4 mg/dL (8.5-10.5) 10/15/24 01:54 Magnesium 2.3 mg/dL (1.7-2.3) 10/15/24 01:54 Total Bilirubin 0.9 mg/dL (0.15-1.2) 10/15/24 01:54 AST 17 U/L (0-32) 10/15/24 01:54 ALT 8 U/L (0-33) 10/15/24 01:54 Alkaline Phosphatase 109 U/L (35-105) H 10/15/24 01:54 Troponin T Baseline 16 ng/L (0-10) H 10/15/24 01:54 Total Protein 7.3 g/dL (6.6-8.7) 10/15/24 01:54 Albumin 4.1 g/dL (3.5-5.2) 10/15/24 01:54 Globulin 3.2 g/dL (1.3-4.6) 10/15/24 01:54 All radiology interpretation(s) finalized by discharge Discharge Plan Discharge Patient Disposition: Admitted As Inpatient Clinical Impression: Atrial fibrillation with rapid ventricular response Condition: Stable Coding Level of Care Code ED Cash Posting Representative for Rey Ruiz
--- NOTE | 2024-10-15 01:48 | ECG_ITS ---
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 Measurements Intervals [place] Rate: 144 P: 0 UT: 0 QRS: 79 QRSD: 80 T: -15 QT: 267 QTc: 414 Interpretive Statements ATRIAL FIBRILLATION WITH RAPID VENTRICULAR RESPONSE WITH ABERRANT CONDUCTION OR VENTRICULAR PREMATURE COMPLEXES LOW QRS VOLTAGE IN PRECORDIAL LEADS [QRS DEFLECTION < 1.0 mV IN CHEST LEADS] NONSPECIFIC ST & T-WAVE ABNORMALITY Compared to ECG 08/02/2024 02:30:03 T-wave abnormality now present Electronically Signed On 10-15-2024 18:51:07 CDT by Spring Gongora M.D. [id number]
[2024-10-15] MEDS: dilTIAZem 5 mg/mL SDV 5 mL 20 MG IVP (01:52)
[2024-10-15] MEDS: dilTIAZem 100 MG in sodium chloride 0.9% (add-van) 100 ML IV (02:05)
[2024-10-15 02:08] LABS: Basophils % 0.3 %; Eosinophils # 0.1 10^3/uL (0.0-0.8); Eosinophils % 0.5 %; Lymphocytes # 1.5 10^3/uL (0.8-4.8); Lymphocytes % 12.2 %; Mean Corpuscular HGB Conc 26.2 g/dL (30-55); Mean Corpuscular Hemoglobin 27.4 pg (27-33); Mean Corpuscular Volume 104.8 fl (85-98); Mean Platelet Volume 11.1 fL (7.4-10.4); Monocytes # 0.9 10^3/uL (0.2-0.9); Monocytes % 7.2 %; Neutrophils # 9.83 10^3/uL (1.8-7.7); Neutrophils % 79.4 %; Nucleated Red Blood Cells % 0 %; Platelet Count 382 10^3/cmm (157-399); Red Blood Count 3.72 10^6/uL (3.85-5.65); Red Cell Distribution Width 15.7 % (12.1-15.1); White Blood Count 12.38 10^3/uL (3.29-11.43)
[2024-10-15 02:18] LABS: INR 0.96 (0.8-1.2)
[2024-10-15 02:24] LABS: Troponin(5th) Baseline 16 ng/L (0-10)
[2024-10-15 02:26] LABS: Alanine Aminotransferase 8 U/L (0-33); Albumin Level 4.1 g/dL (3.5-5.2); Alkaline Phosphatase 109 U/L (35-105); Blood Urea Nitrogen 19 mg/dL (8-23); Calcium 9.4 mg/dL (8.5-10.5); Carbon Dioxide 40 mmol/L (22-29); Chloride 93 mmol/L (98-107); Creatinine Clr Calc Pharmacy 134.2804; Globulin 3.2 g/dL (1.3-4.6); Glucose 162 mg/dL (65-115); Magnesium 2.3 mg/dL (1.7-2.3); Osmolality Calculated 300 mOsm/kg (285-295); Sodium 142 mmol/L (136-145); Total Bilirubin 0.9 mg/dL (0.15-1.2); Total Protein 7.3 g/dL (6.6-8.7)
[2024-10-15 02:27] LABS: Anion Gap 13.7 (5-19); Aspartate Amino Transferase 17 U/L (0-32); Potassium 4.7 mmol/L (3.5-5.1)
--- NOTE | 2024-10-15 03:36 | ECG_ITS ---
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 Measurements Intervals [place] Rate: 145 P: 0 NM: 0 QRS: 28 QRSD: 90 T: -28 QT: 289 QTc: 450 Interpretive Statements ATRIAL FIBRILLATION WITH RAPID VENTRICULAR RESPONSE LOW QRS VOLTAGE IN PRECORDIAL LEADS [QRS DEFLECTION < 1.0 mV IN CHEST LEADS] POSSIBLE INFERIOR MYOCARDIAL INFARCTION , PROBABLY OLD [30 ms Q WAVE IN II/aVF] ST ELEVATION, CONSIDER LATERAL INJURY [MARKED ST ELEVATION W/O NORMALLY INFLECTED T-WAVE IN I/aVL/V5/V6] ACUTE ME Compared to ECG 10/15/2024 01:48:50 Myocardial infarct finding now present ST (T wave) deviation now present Ventricular premature complex(es) no longer present Aberrant conduction of supraventricular beat(s) no longer present T-wave abnormality no longer present Electronically Signed On 10-19-2024 13:32:57 CDT by Spring Gongora M.D. [id number]
[2024-10-15] MEDS: amiodarone 150 MG/100 ML PREMIX 400 MG IV (03:59)
[2024-10-15] MEDS: ondansetron 2 mg/ML SDV 2 mL 4 MG IVP (04:36)
[2024-10-15 04:51] LABS: Alveolar-Arterial Oxygen Gradi 28.8 mmHg (5-10); Arterial Blood Gas Hematocrit 32.9 % (37-47); Base Excess ABG 14.6 mmol/L (-2.0-2.0); Blood Gas Sample Site Brachial, right; Blood Gas Sample Type Arterial; HCO3 ABG 47.4 mmol/L (22-26); HGB O2 Sat 81.6 % (95-100); Ionized Calcium Level - ABG 1.3 mmol/L (1.1-1.4); Methemoglobin 0.1 % (0.4-1.5); Oxygen Device BIPAP; Oxygen Saturation ABG 83.3; PO2 ABG 58.5 mmHg (80.0-100.0); PO2 FiO2 Ratio Arterial Blood 97; Potassium Level - ABG 4.3 mmol/L (3.5-5.0); Total Hemoglobin 10.7 g/dL (12-16)
[2024-10-15 04:52] LABS: ABG PCO2 > 102.0 mmHg (35-45); ABG PH Result 7.17 (7.35-7.45)
--- NOTE | 2024-10-15 05:41 | PM.HP ---
Providers/Chief Complaint Admitting Physician: Nga Rizvi MD Primary Care Provider: Kilo Dunham Chief Complaint: A Fib RVR History of Present Illness Colette Hernandez is a 64 year old female with COPD, 4 L oxygen dependent uses BiPAP, noncompliant, D-CHF, A-fib, chronic anticoagulation, morbidly obese, presented to the hospital for worsening shortness of breath. Patient is not able to provide much history as per the ER staff she was sent from home because of worsening of shortness of breath and she has not been using her BiPAP for the last few days. Workup in the ER consistent with A-fib RVR she was put on amiodarone and Cardizem drip because her heart rate was consistently below 150s which was not getting better. At home she takes sotalol and Cardizem. Review of records revealed that patient had similar presentation in July when she was extremely hypercarbic, turned around roughly 2-1/2 hours, she was put on p.o. Cardizem along her sotalol that improved her heart rate. At the time of my evaluation patient able to moan and groan, she opened her eyes but would not make eye contact, she is currently on BiPAP Repeating ABG at the time of my evaluation, I have also requested Veras catheter placement and discontinuation of Cardizem drip and only continuing amiodarone for now blood pressure 115/60 mmHg She is admitted to the ICU Her EF is preserved Chest x-ray showing pulm edema related to CHF exacerbation Troponin without significant delta Review of Systems General: Reports: ROS unobtainable due to medical condition Medications/Allergies Home Medications ?Medication ?Instructions ?Recorded ?Confirmed ?Last Taken ?Type apixaban 5 mg tablet (Eliquis) 5 mg PO BID@0900,2100 #60 tabs 06/09/23 08/02/24 Unknown Rx atorvastatin 40 mg tablet 40 mg PO BEDTIME #30 tabs 06/10/23 08/02/24 Unknown Rx bupropion HCl 150 mg tablet,12 hr 150 mg PO DAILY #10 tabs 06/10/23 08/02/24 Unknown Rx sustained-release sotalol 160 mg tablet 160 mg PO Q12H #60 tabs 06/10/23 08/02/24 Unknown Rx fluticasone propionate 115 2 puff inhalation Q12H 08/02/24 08/02/24 Unknown History mcg-salmeterol 21 mcg/actuation HFA inhaler (Advair HFA) omeprazole 40 mg capsule,delayed 40 mg PO DAILY 08/02/24 08/02/24 Unknown History release aspirin 81 mg tablet,delayed 81 mg PO DAILY #30 tabs 08/05/24 Unknown Rx release bacitracin 500 unit/gram topical 1 applic topical TID #14 grams 08/05/24 Unknown Rx ointment diltiazem HCl 120 mg 120 mg PO Q24H #30 caps 08/05/24 Unknown Rx capsule,extended release 24 hr (Cardizem CD) furosemide 40 mg tablet (Lasix) 40 mg PO DAILY #30 tabs 08/05/24 Unknown Rx linezolid 600 mg tablet 600 mg PO Q12H #8 tabs 08/05/24 Unknown Rx prednisone 10 mg tablet See Taper PO DIRECTED #42 tabs 08/05/24 Unknown Rx Allergies Allergy/AdvReac Type Severity Reaction Status Date / Time No Known Allergies Allergy Verified 10/15/24 01:49 PFSH Acute PFSH: Medical History Morbid obesity Atrial fibrillation with RVR On home oxygen therapy COPD (chronic obstructive pulmonary disease) Family History Mother Atrial fibrillation Father Heart attack Other CAD (coronary artery disease) Social History Smoking and tobacco/nicotine status: former use of tobacco/nicotine Alcohol intake: never Substance/Drug Use: never Caregiver/support person: Yes Lives independently: Yes Household members: spouse and family Housing: House Marital status: Vitals/I&O/Wt Last Vital Signs Temp 98.0 F 10/15/24 01:39 Pulse 115 H 10/15/24 05:00 Resp 16 10/15/24 02:15 BP 154/112 10/15/24 05:00 Pulse Ox 95 10/15/24 05:00 O2 Del Method BiPAP 10/15/24 04:45 O2 Flow Rate 4 10/15/24 02:04 FiO2 60 10/15/24 04:48 10/14/24 10/14/24 10/15/24 14:59 22:59 06:59 Intake Total 103.917 / 103.917 Balance 103.917 / 103.917 Weight last 48 hrs Weight 136.078 kg Physical Exam Narrative: Morbidly obese female Currently on BiPAP Opens eyes to verbal command however not able to make eye contact Patient is tossing and changing her position in the bed Signs of fluid overload present Bilateral breath sounds with rhonchi and crackles Lower extremity 3+ edema extending all the way up to abdominal wall Anasarca A-fib RVR heart rate in 130s Neuroexam limited Lower extremity venous stasis dermatitis Data 10/15/24 01:54 10/15/24 01:54 A&P Assessment and plan (1) Congestive heart failure: Qualifiers: Heart failure type: combined systolic and diastolic Heart failure chronicity: acute on chronic Qualified Code(s): I50.43 - Acute on chronic combined systolic (congestive) and diastolic (congestive) heart failure (2) Acute on chronic heart failure with reduced ejection fraction and diastolic dysfunction: (3) Atrial fibrillation with RVR: (4) Morbid obesity: (5) Encephalopathy acute: (6) On home oxygen therapy: (7) Pleural effusion: Plan A-fib RVR On sotalol and Cardizem at home along Eliquis Currently on amiodarone drip, Cardizem drip has been turned off secondary to low blood pressure Resume p.o. sotalol once patient is more awake and alert Hypercapnic encephalopathy Acute hypoxic hypercarbic resp distress Currently on BiPAP High risk for intubation Patient had similar presentation with pCO2 was about 100 and she turned around within 2 to 3 hours, and repeating ABG now, her baseline pCO2 seems to be around 80 Patient has been noncompliant with the BiPAP at home as per the report Acute diastolic CHF exacerbation Will request Veras catheter placement record urine output measurement and request IV diuretic regimen Patient is extremely fluid overloaded: Anasarca Metabolic alkalosis: Worsening secondary to in compensation with hypercarbia Review of records revealed that she was asked to take diuretic on alternate days with Diamox Full code N.p.o. DVT prophylaxis: Covered with Eliquis Admit to ICU PDMP PDMP Reviewed: Not Reviewed Attestations Medical Necessity Statement*: More than 2 midnights anticipated Diagnoses Acute on chronic combined systolic and diastolic congestive heart failure I50.43 Heart failure type: combined systolic and diastolic Heart failure chronicity: acute on chronic Acute on chronic heart failure with reduced ejection fraction and diastolic dysfunction I50.43 Atrial fibrillation with RVR I48.91 Morbid obesity E66.01 Encephalopathy acute G93.40 On home oxygen therapy Z99.81 Pleural effusion J90
[2024-10-15 06:16] LABS: Arterial Blood Gas Hematocrit 32.7 % (37-47); Base Excess ABG 16.2 mmol/L (-2.0-2.0); Blood Gas Allen Test Pos; Blood Gas Operator Identificat JDB; Blood Gas Sample Site Radial, right; Blood Gas Sample Type Arterial; HCO3 ABG 48.8 mmol/L (22-26); PO2 ABG 83.9 mmHg (80.0-100.0)
[2024-10-15 06:17] LABS: Blood Gas Tidal Volume 0.45; Oxygen Device BIPAP; PO2 FiO2 Ratio Arterial Blood 139
[2024-10-15 06:20] LABS: ABG PCO2 > 102.0 mmHg (35-45); ABG PH Result 7.18 (7.35-7.45)
[2024-10-15] MEDS: etomidate 2 mg/mL INJ SDV 10 mL 30 MG IVP (06:30)
[2024-10-15] MEDS: rocuronium 10 mg/mL INJ 5mL 150 MG IVP (06:30)
--- NOTE | 2024-10-15 06:31 | PM.CCNAC ---
Critical Care Event Note Repeat ABG did show worsening of hypercapnia, decision was made to intubate the patient I used etomidate 30 mg and rocuronium 150 mg Endotracheal tube size 8 was used, glide scope was used to visualize her vocal cords Endotracheal tube was visualized passing through the vocal cords on first attempt Tube secured at 24 cm lip by, good bilateral breath sounds, color change detected After intubation patient is saturating 100% Patient is hypertensive and tachycardic A-fib RVR heart rate around 130s I will also request PICC line, chest x-ray, repeat ABG. Start fentanyl for sedation Daughter has been notified, has went home The high probability of a clinically significant, sudden or life threatening deterioration of the patient's [] system(s) required my full and direct attention, intervention and personal management. The critical care time is as shown. This time is in addition to time spent performing any reported procedures but includes the following: [x] Data and vital sign review and interpretation [x] Patient assessment, examination and intervention [x] Documentation [x] Medication orders and management Critical Care Time Code activated: No Critical Care Time (min): 30 Additional information about critical care time: 30 Coding Level of Care Code Acute Code for Chg Fwd
--- NOTE | 2024-10-15 06:46 | XR_ITS ---
WS: [id number] Exam: XR chest 1V portable [id number] Date/Time of Exam: 10/15/2024 6:46 AM Reason For Exam: INTUBATION POST PICC LINE Comparison with the latest exam performed on the same day at 7:04 a.m. Right-sided PICC line appears to end in the region of the lower one third of the SVC in good position. There are bibasal infiltrates. Right-sided pleural effusion. Cardiac enlargement unchanged. No pneumothorax. Bony structures are intact. The mediastinum is normal in contour. An enteric tube extends below the diaphragm with the tip is not visible. ET tube remains in satisfactory position. XR/XR chest 1V portable [id number] IMPRESSION: 1. Right-sided PICC line appearing to end in the lower one third of the SVC. 2. The remaining aspect of the chest show little change since the latest exam.
--- NOTE | 2024-10-15 06:48 | XRR_ITS ---
PROCEDURE INFORMATION: Exam: XR Chest Exam date and time: 10/15/2024 6:56 AM Age: 64 years old Clinical indication: Device placement; Picc; Additional info: Post picc insertion, yelitza placing picc in icu 7. Should be ready at 0730 TECHNIQUE: Imaging protocol: Radiologic exam of the chest. Views: 1 view. COMPARISON: CR (CHEST, ) 10/15/2024 1:56 AM FINDINGS: Tubes, catheters and devices: Endotracheal tube is present with its tip 4-1/2 cm above the negrita. No definite PICC line is appreciated. Lungs: There are bilateral perihilar and basilar infiltrates likely related to vascular congestion. No focal consolidation is appreciated. Pleural spaces: Suspect small bilateral pleural effusions. No pneumothorax is identified. Heart/Mediastinum: The heart is enlarged. Bones/joints: Unremarkable. XR/XR chest 1V portable [id number] IMPRESSION: 1. Cardiomegaly with bilateral perihilar and basilar infiltrates and small pleural effusions. There has been interval improvement on the right when compared to prior exam. However, there may be slight interval worsening on the left. 2. No definite PICC line identified.
[2024-10-15] MEDS: fentaNYL 2,500 MCG/250 ML BAG IV (06:55)
[2024-10-15 07:02] LABS: NT Pro B Type Natriuretic Pept 5356 pg/mL (0-125); Procalcitonin 0.05 ng/mL (0-0.5)
[2024-10-15] MEDS: propofol 1,000 MG/100 ML INJ 4.32 MG IV (07:31)
--- NOTE | 2024-10-15 07:43 | PC.NURSE ---
Intubation Dr Rizvi performed intubation. 30 mg of etomidate given at 0630 followed by 150 mg of rocuronium. At the time of sedation administration heart rate was 160 and blood pressure was 146/89. Color change occurred at 0637. Patient intubated with size 8 tube, 24 at the lip.
--- NOTE | 2024-10-15 08:02 | PC.PHAR ---
Kyle verified pt medications and last fill dates with day supply.
[2024-10-15 08:54] LABS: Troponin 5 6HR 14.49 ng/L (0-10)
[2024-10-15 09:03] LABS: Troponin 5 6HR Delta -1.51 ng/L (0-12)
--- NOTE | 2024-10-15 09:30 | PICC.NOTE ---
Double lumen PICC placed to right brachial vein. Referred to vascular access nurse for PICC placement due to poor access and multiple IV gtts. Risks and benefits discussed and informed consent obtained from patient daughter, Janene, via phone. Right arm assessed with right brachial vein measuring 3.2 mm, straight, and apparent best choice for placement. Using sterile technique and MST, right brachial vein accessed x 1 stick. Mid-arm circumference measured 10 cm from right AC 40 cm. Trimmed cath 40 cm with 1 cm external length noted. CXR shows tip in distal SVC, in good position for use per radiologist. Line secured with stat-lock. Insertion site covered with Biopatch and TSM. Report given to bedside nurse, MICHAEL Lopez.
[2024-10-15] MEDS: methylPREDNISolone sod succ 40 mg/mL INJ 30 MG IVP (09:54)
[2024-10-15] MEDS: pantoprazole 40 mg SDV IVP ×2 (09:54→20:08)
[2024-10-15] MEDS: FUROsemide 10 mg/mL SDV 4mL 40 MG IVP ×2 (09:54→17:42)
[2024-10-15] MEDS: apixaban 5 mg Tablet OG-TUBE ×2 (09:55→20:08)
[2024-10-15] MEDS: aspirin 81 mg EC Tablet PO (09:55)
[2024-10-15] MEDS: potassium chloride ER 20 mEq Tablet 40 MEQ OG-TUBE (09:56)
--- NOTE | 2024-10-15 10:04 | ECG_ITS ---
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 Measurements Intervals [place] Rate: 134 P: 0 IN: 0 QRS: 68 QRSD: 89 T: 54 QT: 323 QTc: 483 Interpretive Statements ATRIAL FIBRILLATION WITH RAPID VENTRICULAR RESPONSE MODERATE ST DEPRESSION [0.05+ mV ST DEPRESSION] Compared to ECG 10/15/2024 03:36:22 Myocardial infarct finding no longer present ST (T wave) deviation still present Electronically Signed On 10-15-2024 19:00:19 CDT by Spring Gongora M.D. [id number]
[2024-10-15 10:10] LABS: ABG PH Result 7.36 (7.35-7.45); Arterial Blood Gas Hematocrit 30.6 % (37-47); Base Excess ABG 16.7 mmol/L (-2.0-2.0); Blood Gas Allen Test Pos; Blood Gas Operator Identificat GD; Blood Gas Sample Site Radial, right; Blood Gas Sample Type Arterial; HCO3 ABG 45.2 mmol/L (22-26); Oxygen Device VENT; PO2 FiO2 Ratio Arterial Blood 256
[2024-10-15 10:37] LABS: ABG PCO2 80.3 mmHg (35-45)
--- NOTE | 2024-10-15 12:10 | PM.MISC ---
Miscellaneous Note Note: Patient seen evaluated this morning. She was admitted by the home improvement advisor. Agree with plan of care. Chest x-ray reviewed, ET tube in satisfactory positioning. Patient required prolonged bagging this morning by RT. Propofol was added slight improvement in heart rate and compliance. Agree with plan of care. Plan for NG tube intubation and PICC line. Will continue amiodarone infusion for heart rate control. Will increase steroid dosing. Diuresis as tolerated.
[2024-10-15] MEDS: propofol 1,000 MG/100 ML INJ 8.64 MG IV (13:49)
[2024-10-15] MEDS: ipratropium-albuterol 3 mL Neb INHALATION ×2 (14:31→19:59)
[2024-10-15] MEDS: methylPREDNISolone sod succ 40 mg/mL INJ IVP ×2 (16:19→22:28)
[2024-10-15 17:16] LABS: ABG PCO2 54.5 mmHg (35-45); ABG PH Result 7.55 (7.35-7.45); Alveolar-Arterial Oxygen Gradi 21.8 mmHg (5-10); Base Excess ABG 22.6 mmol/L (-2.0-2.0); Blood Gas Allen Test Pos; Blood Gas Sample Site Radial, right; Blood Gas Sample Type Arterial; Blood Gas Tidal Volume 0.45; Carboxyhemoglobin 1.6 %THgb (0.4-20.1); HCO3 ABG 47.7 mmol/L (22-26); Ionized Calcium Level - ABG 1.1 mmol/L (1.1-1.4); Methemoglobin 0.9 % (0.4-1.5); Oxygen Device VENT; Oxygen Saturation ABG 92.2; PO2 ABG 52.6 mmHg (80.0-100.0); PO2 FiO2 Ratio Arterial Blood 131; Potassium Level - ABG 4.4 mmol/L (3.5-5.0); Total Hemoglobin 10.1 g/dL (12-16)
[2024-10-15 17:23] LABS: Blood Gas Operator Identificat GD
--- NOTE | 2024-10-15 17:24 | PM.CONSULT ---
Providers/Reason For Consult Consulting Physician/Specialty*: STEFANY Gongora MD/cardiology Reason for Consult*: Patient with intermittent atrial fibrillation, admitted with respiratory failure, A-fib with rapid ventricular rate Requesting Physician: Dr. Wise/. Attending Physician: Watson Wise MD Primary Care Provider: Kilo Dunham History of Present Illness History of Present Illness Colette Hernandez is a 64 year old female is admitted to the hospital through the emergency room where she presented with respiratory failure. She was found to be in atrial fibrillation with rapid ventricular rate. She got intubated and is currently in the ICU. She was started on IV amiodarone. Her heart rate still remains uncontrolled. Cardiology consult is requested for further cardiac evaluation and recommendations. This patient has a history of intermittent atrial fibrillation, HFpEF, severe COPD, hypoxic respiratory failure, morbid obesity, obstructive sleep apnea and multiple other medical problems. The information is mostly from her and also from the medical records. This patient apparently had multiple hospital admissions/ER visits for respiratory distress/failure. According to the , she has been very reluctant to use her BiPAP at home. She may hardly use it for an hour or so every day. According to him, she does not like wearing the mask. She has not been complaining of any chest pain. She has a history of chronic intermittent atrial fibrillation and been to multiple ingredient mixer in [place]. But for the last 3 years, she has not been seen by a ingredient mixer. She had some extensive cardiac workup in the past mostly around 2013. Apparently the was told that the patient may have some small blocked arteries not amenable for any intervention. Her pCO2 was around 103 at the time of admission. Currently the pCO2 is around 60. Oxygenation is improving. The BNP was in the 5000 range. Troponin T is within normal limit. . She had a stress test done in this hospital in June 2023 and was found to be essentially unremarkable. Her echocardiogram in July of this year revealed ejection fraction around 50 to 55%. This was a suboptimal study. She did not have any fever, chills or any significant cough at home. She has been non compliant with medical follow-ups. Review of Systems Narrative: CONSTITUTIONAL: No fever or chills. EYES: No blurring of vision or other visual disturbances lately. ENT: No hoarseness of voice, auditory disturbances or sore throat. CARDIOVASCULAR: As mentioned above. RESPIRATORY: As mentioned above GASTROINTESTINAL: History of GERD GENITOURINARY: No dysuria or hematuria. INTEGUMENTARY: Chronic edema of the lower extremities. NEURO: No transient ischemic attacks or amaurosis. PSYCHIATRIC: No history of psychosis or major depression. HEMATOLOGIC: Mild chronic anemia ENDOCRINE: No history of polyuria or polydipsia. MUSCULOSKELETAL: No recent joint pain or swelling. ALLERGY/IMMUNOLOGY: As mentioned above. Medications/Allergies Home Medications ?Medication ?Instructions ?Recorded ?Confirmed ?Last Taken ?Type apixaban 5 mg tablet (Eliquis) 5 mg PO BID@0900,2100 #60 tabs 06/09/23 10/15/24 Unknown Rx atorvastatin 40 mg tablet 40 mg PO BEDTIME #30 tabs 06/10/23 10/15/24 Unknown Rx sotalol 160 mg tablet 160 mg PO Q12H #60 tabs 06/10/23 10/15/24 Unknown Rx fluticasone propionate 115 2 puff inhalation Q12H 08/02/24 10/15/24 Unknown History mcg-salmeterol 21 mcg/actuation HFA inhaler (Advair HFA) omeprazole 40 mg capsule,delayed 40 mg PO DAILY 08/02/24 10/15/24 Unknown History release aspirin 81 mg tablet,delayed 81 mg PO DAILY #30 tabs 08/05/24 10/15/24 Unknown Rx release bacitracin 500 unit/gram topical 1 applic topical TID #14 grams 08/05/24 10/15/24 Unknown Rx ointment diltiazem HCl 120 mg 120 mg PO Q24H #30 caps 08/05/24 10/15/24 Unknown Rx capsule,extended release 24 hr (Cardizem CD) furosemide 40 mg tablet (Lasix) 40 mg PO DAILY #30 tabs 08/05/24 10/15/24 Unknown Rx acetazolamide 250 mg tablet 250 mg PO .QOD 10/15/24 10/15/24 Unknown History bupropion HCl 200 mg tablet,12 hr 200 mg PO BID 10/15/24 10/15/24 Unknown History sustained-release Allergies Allergy/AdvReac Type Severity Reaction Status Date / Time No Known Allergies Allergy Verified 10/15/24 01:49 Current Medications Generic Name Dose Route Start Last Admin Trade Name Freq PRN Reason Stop Dose Admin Albuterol/Ipratropium 3 ml 10/15/24 05:44 10/15/24 14:31 Ipratropium-Albuterol 3 Ml Neb INHALATION 3 ml Q6H PRN Administration SHORTNESS OF BREATH Apixaban 5 mg 10/15/24 07:00 10/15/24 10:22 Apixaban 5 Mg Tablet OG-TUBE Not Given BID@0900,2100 SARAH Aspirin 81 mg 10/15/24 09:00 10/15/24 09:55 Aspirin 81 Mg Ec Tablet PO 81 mg DAILY SARAH Administration Furosemide 40 mg 10/15/24 06:00 10/15/24 09:54 Furosemide 10 Mg/Ml Sdv 4ml IVP 40 mg Q12H SARAH Administration Amiodarone HCl/Dextrose 360 mg in 200 mls @ 0 mls/hr 10/15/24 03:36 10/15/24 11:15 Nexterone IV 0.5 mg/min .Q0M SARAH 16.67 mls/hr Titration Protocol Per Protocol Fentanyl 2,500 mcg in 250 mls @ 0 mls/hr 10/15/24 06:45 10/15/24 15:42 Sublimaze IV 40 mcg/hr .Q0M SARAH 4 mls/hr Titration Protocol Per Protocol Propofol 1,000 mg in 100 mls @ 0 mls/hr 10/15/24 07:30 10/15/24 16:40 Diprivan IV 20 mcg/kg/min .Q0M SARAH 17.28 mls/hr Titration Protocol Per Protocol Methylprednisolone Sodium Succinate 40 mg 10/15/24 16:00 10/15/24 16:19 Methylprednisolone Sod Succ 40 Mg/Ml Inj IVP 40 mg Q6H SARAH Administration Pantoprazole Sodium 40 mg 10/15/24 07:00 10/15/24 09:54 Pantoprazole 40 Mg Sdv IVP 40 mg Q12H SARAH Administration PFSH Acute PFSH: Medical History Morbid obesity Atrial fibrillation with RVR On home oxygen therapy COPD (chronic obstructive pulmonary disease) Family History Mother Atrial fibrillation Father Heart attack Other CAD (coronary artery disease) Social History Smoking and tobacco/nicotine status: former use of tobacco/nicotine Alcohol intake: never Substance/Drug Use: never Caregiver/support person: Yes Lives independently: Yes Household members: spouse and family Housing: House Marital status: Vitals/I&O/Wt Last Vital Signs Temp 98.1 F 10/15/24 13:00 Pulse 117 H 10/15/24 15:30 Resp 14 10/15/24 15:39 BP 100/45 10/15/24 15:30 Pulse Ox 94 10/15/24 15:39 O2 Del Method Mechanical Ventilation 10/15/24 15:30 O2 Flow Rate 4 10/15/24 02:04 FiO2 40 10/15/24 16:00 10/15/24 10/15/24 10/15/24 06:59 14:59 22:59 Intake Total 138.084 / 138.084 304.722 / 304.722 118.441 / 423.163 Output Total 1000 / 1000 Balance 138.084 / 138.084 304.722 / 304.722 -881.559 / -576.837 Weight last 48 hrs Weight 317 lb 7.45 oz Weight 300 lb Physical Exam Narrative: GENERAL: The patient is intubated and sedated. Morbidly obese. HEENT: No significant pallor, icterus or lymphadenopathy.Oral cavity: There are no mucous membrane lesions. NECK: Trachea appears to be central. No masses noted. No JVD or thyromegaly appreciated. RESPIRATORY: Chest is symmetrical. No intercostals muscle retraction or any accessory muscle activation. There is no chest wall tenderness. Breath sounds are heard bilaterally diminished intensity of breath sounds in the bases. BREASTS: Deferred. HEART: The heart sounds are normal. No S3 or S4. No significant murmurs. No pericardial rub ABDOMEN: No vessel pulsations or distention. No tenderness. No organomegaly appreciated. Bowel sounds are normally heard. : Deferred. RECTAL: Deferred. LYMPHATIC: No lymphadenopathy noted in the neck. EXTREMITIES: 1-2+ edema both lower extremities. Minimal redness in the lower part. Some healing blisters are present MUSCULOSKELETAL: No acute joint deformities or swelling SKIN: There are no significant rashes or ecchymosis NEUROPSYCHIATRIC: The patient is alert and oriented x3. Appears to be in a good mood. No tremors or rigidity noted. Urinary Catheter Management: Veras: Cath Placed During This Visit: yes Reason for Continuing Indwelling Catheter: Accurate Measurement of Urinary Output in Critically Ill Patients Urinary Catheter Date of Insertion: 10/15/24 Data 10/15/24 01:54 10/15/24 01:54 Other Labs: Laboratory Last Values WBC 12.38 10^3/uL (3.29-11.43) H 10/15/24 01:54 RBC 3.72 10^6/uL (3.85-5.65) L 10/15/24 01:54 Hgb 10.20 g/dL (11.27-16.99) L 10/15/24 01:54 Hct 39.0 % (36-47) 10/15/24 01:54 MCV 104.8 fl (85-98) H 10/15/24 01:54 MCH 27.4 pg (27-33) 10/15/24 01:54 MCHC 26.2 g/dL (30-55) L 10/15/24 01:54 RDW 15.7 % (12.1-15.1) H 10/15/24 01:54 Plt Count 382 10^3/cmm (157-399) 10/15/24 01:54 MPV 11.1 fL (7.4-10.4) H 10/15/24 01:54 Neut % (Auto) 79.4 % 10/15/24 01:54 Lymph % (Auto) 12.2 % 10/15/24 01:54 Hettinger % (Auto) 7.2 % 10/15/24 01:54 Eos % (Auto) 0.5 % 10/15/24 01:54 Baso % (Auto) 0.3 % 10/15/24 01:54 Neut # (Auto) 9.83 10^3/uL (1.8-7.7) H 10/15/24 01:54 Lymph # (Auto) 1.5 10^3/uL (0.8-4.8) 10/15/24 01:54 Hettinger # (Auto) 0.9 10^3/uL (0.2-0.9) 10/15/24 01:54 Eos # (Auto) 0.1 10^3/uL (0.0-0.8) 10/15/24 01:54 Baso # (Auto) 0.0 10^3/uL (0.0-0.1) 10/15/24 01:54 Nucleated RBC % (auto) 0 % 10/15/24 01:54 Nucleated RBCs # 0.0 /100WBC 10/15/24 01:54 PT 13.50 SECONDS (12.1-14.9) 10/15/24 01:54 INR 0.96 (0.8-1.2) 10/15/24 01:54 Specimen Type Arterial 10/15/24 17:00 Sample Site Radial, right 10/15/24 17:00 ABG pH 7.55 (7.35-7.45) H 10/15/24 17:00 ABG pCO2 54.5 mmHg (35-45) H 10/15/24 17:00 ABG pO2 52.6 mmHg (80.0-100.0) L 10/15/24 17:00 ABG PO2/FiO2 Ratio 131 10/15/24 17:00 ABG HCO3 47.7 mmol/L (22-26) H 10/15/24 17:00 ABG O2 Saturation 92.2 10/15/24 17:00 ABG Base Excess 22.6 mmol/L (-2.0-2.0) H 10/15/24 17:00 Morro Test Pos 10/15/24 17:00 A-a O2 Gradient 21.8 mmHg (5-10) H 10/15/24 17:00 Hematocrit 31.0 % (37-47) L 10/15/24 17:00 Hgb O2 Saturation 90.0 % (95-100) L 10/15/24 17:00 Carboxyhemoglobin 1.6 %THgb (0.4-20.1) 10/15/24 17:00 Methemoglobin 0.9 % (0.4-1.5) 10/15/24 17:00 Total Hemoglobin 10.1 g/dL (12-16) L 10/15/24 17:00 Sodium 142.0 mmol/L (131-143) 10/15/24 17:00 Potassium 4.4 mmol/L (3.5-5.0) 10/15/24 17:00 Glucose 131.0 mg/dL (70-115) H 10/15/24 17:00 Ionized Calcium 1.1 mmol/L (1.1-1.4) 10/15/24 17:00 O2 Delivery Device Vent 10/15/24 17:00 FiO2 40.0 % 10/15/24 17:00 Tidal Volume 0.45 10/15/24 17:00 PEEP 10.0 cmH20 10/15/24 17:00 Bank Reconciliator ID Gd 10/15/24 17:00 Sodium 142 mmol/L (136-145) 10/15/24 01:54 Potassium 4.7 mmol/L (3.5-5.1) 10/15/24 01:54 Chloride 93 mmol/L (98-107) L 10/15/24 01:54 Carbon Dioxide 40 mmol/L (22-29) H 10/15/24 01:54 Anion Gap 13.7 (5-19) 10/15/24 01:54 BUN 19 mg/dL (8-23) 10/15/24 01:54 Creatinine 0.6 mg/dL (0.5-0.9) 10/15/24 01:54 GFR Calculation 101.0 mL/min (90-130) 10/15/24 01:54 Glucose 162 mg/dL (65-115) H 10/15/24 01:54 Calculated Osmolality 300 mOsm/kg (285-295) H 10/15/24 01:54 Calcium 9.4 mg/dL (8.5-10.5) 10/15/24 01:54 Magnesium 2.3 mg/dL (1.7-2.3) 10/15/24 01:54 Total Bilirubin 0.9 mg/dL (0.15-1.2) 10/15/24 01:54 AST 17 U/L (0-32) 10/15/24 01:54 ALT 8 U/L (0-33) 10/15/24 01:54 Alkaline Phosphatase 109 U/L (35-105) H 10/15/24 01:54 Troponin T Baseline 16 ng/L (0-10) H 10/15/24 01:54 Troponin T 120 Minute 15.40 ng/L (0-10) H 10/15/24 04:08 [place] Troponin T -0.60 ABS# (0-10) L 10/15/24 04:08 Troponin T Hi Sens 6Hr 14.49 ng/L (0-10) H 10/15/24 08:25 Troponin T Hi Sens 6Hr [place] -1.51 ng/L (0-12) L 10/15/24 08:25 NT-Pro-B Natriuret Pep 5356 pg/mL (0-125) H 10/15/24 04:08 Total Protein 7.3 g/dL (6.6-8.7) 10/15/24 01:54 Albumin 4.1 g/dL (3.5-5.2) 10/15/24 01:54 Globulin 3.2 g/dL (1.3-4.6) 10/15/24 01:54 Procalcitonin 0.05 ng/mL (0-0.5) 10/15/24 04:08 Micro: Microbiology 10/15/24 08:30 Gram Stain - Final Sputum - Endotracheal Tube Aspirate Other data: EKG from today Atrial fibrillation rapid ventricular rate. Diffuse nonspecific ST-T changes. Echocardiogram done on 08/02/2024 Technically limited quality echocardiogram because of poor ultrasonic windows. LV systolic function is normal with EF 50 to 55%. Biatrial enlargement Trace mitral regurgitation Mild tricuspid regurgitation. Mild pulmonary hypertension Myocardial perfusion imaging on 06/09/2023 . Myocardial perfusion imaging revealing a very small area of moderately decreased aseptic in the LV apex with subtle reversibility, most likely artifactual. A subtle area of ischemia in the circumflex distribution cannot be excluded. Some features of right ventricular hypertrophy 2. Normal LV ejection fraction of 56% 3. LV wall motion analysis revealing no gross wall motion abnormalities. 4. LV volume, upper limit of normal. No similar previous studies are available for comparison A&P Assessment and plan (1) Atrial fibrillation with rapid ventricular response: Patient's ventricular response rate is around 140 to 150 bpm. She is on IV amiodarone. Blood pressure is in the 110s. I may give her a dose of IV digoxin 0.25 mg. Her heart rate will be closely monitored. (2) Acute on chronic diastolic (congestive) heart failure: This may be carefully treated with IV diuretics. Her LV ejection fraction was around 50 to 55% by echocardiogram in July of this year. The COPD exacerbation coupled with atrial fibrillation rapid ventricular rate might be causing the recurrent diastolic heart failure. Most likely is related to the tachyarrhythmia . Apparently the patient had an unremarkable Myocardial perfusion imaging in June 2023. According to her , she was told to have small arteries not amenable for intervention?, In 2014. Details are not available. (3) Acute hypoxic on chronic hypercapnic respiratory failure: Patient is a severe COPD/obstructive sleep apnea / noncompliance to BiPAP are seem to be the major contributing factors for the current respiratory failure. (4) Obstructive sleep apnea: The patient has been very noncompliant with treatment. She was supposed to be using the BiPAP. (5) Morbid obesity: Patient has been poorly compliant with the diet and medical follow-ups. Plan Other problems are chronic anemia Peripheral edema Dyslipidemia GERD High risk medication I will try to get the medical records from [place]. Patient may catheter with IV diuretics. I also may give IV digoxin total of 1 mg in divided doses for rate control. Continue the IV amiodarone for the time being Continue the anticoagulation. After reviewing the above and also based on the patient's clinical progress, further recommendations will be made. Thank for the opportunity to eval this patient and make these recommendations PDMP PDMP Reviewed: Not Reviewed Coding Level of Care Code 71320 Diagnoses Atrial fibrillation with rapid ventricular response I48.91 Acute on chronic diastolic (congestive) heart failure I50.33 Acute hypoxic on chronic hypercapnic respiratory failure J96.01; J96.12 Obstructive sleep apnea G47.33 Morbid obesity E66.01
[2024-10-15] MEDS: digoxin 250 mcg/ml INJ 2 mL IVP (18:11)
--- NOTE | 2024-10-15 18:50 | PC.NURSE ---
Shift summary: Pt remains resting in bed throughout shift sedated and on vent. Fio2 now 50%. ABGs show improvement. Amiodarone gtt now at 0.5 mcg/min. Fentanyl at 50 mcg/hr and PRopofol at 25 mcg/kg/min. She has received 40mg Lasix x2, and 250mcg of digoxin. Heart rhythm remains A Fib. PICC inserted today. OG remains clamped, no drainage noted. Her skin ins intact, although she does have bruising and cellulitis-like redness on her left damon. 1000 ml of urine output noted. Family has been at bedside this afternoon.
[2024-10-15] MEDS: propofol 1,000 MG/100 ML INJ 17.28 MG IV (20:00)
[2024-10-15] MEDS: atorvastatin 40 mg Tablet PO (20:09)
[2024-10-15 20:51] LABS: ABG PH Result 7.52 (7.35-7.45); Alveolar-Arterial Oxygen Gradi 28.3 mmHg (5-10); Arterial Blood Gas Hematocrit 28.5 % (37-47); Base Excess ABG 23.8 mmol/L (-2.0-2.0); Blood Gas Allen Test Pos; Blood Gas Operator Identificat JDB; Blood Gas Sample Site Radial, right; Blood Gas Sample Type Arterial; Carboxyhemoglobin 1.4 %THgb (0.4-20.1); HCO3 ABG 49.7 mmol/L (22-26); HGB O2 Sat 93.3 % (95-100); Ionized Calcium Level - ABG 1.1 mmol/L (1.1-1.4); Methemoglobin 0.5 % (0.4-1.5); Oxygen Device VENT; Oxygen Saturation ABG 95.1; PO2 ABG 65.5 mmHg (80.0-100.0); PO2 FiO2 Ratio Arterial Blood 131; Potassium Level - ABG 3.7 mmol/L (3.5-5.0); Total Hemoglobin 9.3 g/dL (12-16)
[2024-10-15 20:52] LABS: ABG PCO2 61.5 mmHg (35-45)
[2024-10-16] VITALS (77 sets, daily range): BP systolic 87–137; BP diastolic 41–110; PULSE 61–122; RESP 12; TEMP 36.5–36.8; O2SAT 90–99
[2024-10-16] MEDS: propofol 1,000 MG/100 ML INJ 21.6 MG IV ×2 (00:21→05:36)
[2024-10-16] MEDS: digoxin 250 mcg/ml INJ 2 mL IVP (00:24)
[2024-10-16] MEDS: ipratropium-albuterol 3 mL Neb INHALATION ×4 (02:53→19:52)
[2024-10-16] MEDS: methylPREDNISolone sod succ 40 mg/mL INJ IVP ×4 (03:59→21:52)
--- NOTE | 2024-10-16 04:00 | XRR_ITS ---
PROCEDURE INFORMATION: Exam: XR Chest Exam date and time: 10/16/2024 4:07 AM Age: 64 years old Clinical indication: Dyspnea and shortness of breath; Additional info: Resp failure TECHNIQUE: Imaging protocol: Radiologic exam of the chest. Views: 1 view. COMPARISON: CR XR chest 1V portable [id number] 10/15/2024 9:09 AM FINDINGS: Tubes, catheters and devices: Endotracheal tube with the tip projecting 1.2 cm above the negrita. Enteric tube coursing the esophagus and gastroesophageal junction, terminating below the inferior margin of the study. Right upper extremity PICC line in stable position, tip projecting over mid to upper SVC. Lungs: Bilateral mid and lower lung infiltrates, grossly unchanged. Pleural spaces: Unremarkable. No pleural effusion. No pneumothorax. Heart/Mediastinum: Stable cardiomegaly. Bones/joints: Unremarkable. XR/XR chest 1V portable [id number] IMPRESSION: 1. Endotracheal tube with the tip projecting 1.2 cm above the negrita. Recommend retraction by 2-3 cm. 2. Bilateral mid and lower lung infiltrates, grossly unchanged. Stable cardiomegaly.
[2024-10-16 04:01] LABS: ABG PH Result 7.47 (7.35-7.45); Alveolar-Arterial Oxygen Gradi 28.2 mmHg (5-10); Arterial Blood Gas Hematocrit 29.7 % (37-47); Base Excess ABG 23.2 mmol/L (-2.0-2.0); Blood Gas Operator Identificat JDB; Blood Gas Sample Site Brachial, right; Blood Gas Sample Type Arterial; Blood Gas Tidal Volume 0.35; Carboxyhemoglobin 1.4 %THgb (0.4-20.1); HCO3 ABG 50.1 mmol/L (22-26); HGB O2 Sat 89.5 % (95-100); Ionized Calcium Level - ABG 1.2 mmol/L (1.1-1.4); Oxygen Device VENT; Oxygen Saturation ABG 91.7; PO2 ABG 58.8 mmHg (80.0-100.0); PO2 FiO2 Ratio Arterial Blood 117; Potassium Level - ABG 3.5 mmol/L (3.5-5.0); Total Hemoglobin 9.7 g/dL (12-16)
[2024-10-16 04:20] LABS: ABG PCO2 68.4 mmHg (35-45)
[2024-10-16 05:08] LABS: Basophils % 0.1 %; Lymphocytes # 0.7 10^3/uL (0.8-4.8); Mean Corpuscular HGB Conc 27.1 g/dL (30-55); Mean Corpuscular Hemoglobin 27.7 pg (27-33); Mean Corpuscular Volume 102.3 fl (85-98); Mean Platelet Volume 11.6 fL (7.4-10.4); Monocytes # 0.3 10^3/uL (0.2-0.9); Monocytes % 2.3 %; Neutrophils # 10.55 10^3/uL (1.8-7.7); Neutrophils % 91.2 %; Nucleated Red Blood Cells % 0 %; Platelet Count 252 10^3/cmm (157-399); Red Blood Count 3.03 10^6/uL (3.85-5.65); Red Cell Distribution Width 15.9 % (12.1-15.1); White Blood Count 11.58 10^3/uL (3.29-11.43)
[2024-10-16 05:29] LABS: Alanine Aminotransferase 6 U/L (0-33); Albumin Level 3.2 g/dL (3.5-5.2); Alkaline Phosphatase 83 U/L (35-105); Anion Gap 11.8 (5-19); Aspartate Amino Transferase 11 U/L (0-32); Blood Urea Nitrogen 23 mg/dL (8-23); Calcium 8.9 mg/dL (8.5-10.5); Chloride 93 mmol/L (98-107); Creatinine Clr Calc Pharmacy 104.3109; Glomerular Filtration Rate 72.4 mL/min (90-130); Glucose 148 mg/dL (65-115); Magnesium 1.9 mg/dL (1.7-2.3); Osmolality Calculated 302 mOsm/kg (285-295); Phosphorus 2.5 mg/dL (2.5-4.5); Potassium 3.8 mmol/L (3.5-5.1); Sodium 143 mmol/L (136-145); Total Bilirubin 0.4 mg/dL (0.15-1.2); Total Protein 6.2 g/dL (6.6-8.7)
[2024-10-16 05:55] LABS: Carbon Dioxide 42 mmol/L (22-29)
[2024-10-16] MEDS: FUROsemide 10 mg/mL SDV 4mL 40 MG IVP (05:57)
[2024-10-16] MEDS: acetaZOLAMIDE 250 mg Tablet PO (09:04)
[2024-10-16] MEDS: apixaban 5 mg Tablet OG-TUBE ×2 (09:04→21:51)
[2024-10-16] MEDS: aspirin 81 mg EC Tablet PO (09:04)
--- NOTE | 2024-10-16 09:27 | P.PN_ITS ---
Subjective 2 Subjective: Patient is still on the ventilator. She is on FiO2 50%. The ventricular rate was running into the 50s and 60s. She was on the IV amiodarone, which was then discontinued. She received a total of 0.5 mg of IV digoxin. Heart rate is currently in the 90s and 100. She appears sedated and is unable to answer any questions. Medications: Medication Review Details: Current Medications Acetaminophen (Acetaminophen 500 Mg Tablet) 500 mg PO Q4H PRN PRN Reason: fever Albuterol/Ipratropium (Ipratropium-Albuterol 3 Ml Neb) 3 ml INHALATION Q6H PRN PRN Reason: SHORTNESS OF BREATH Last Admin: 10/16/24 08:50 Dose: 3 ml Apixaban (Apixaban 5 Mg Tablet) 5 mg OG-TUBE BID@0900,2100 [facility] Last Admin: 10/16/24 09:04 Dose: 5 mg Aspirin (Aspirin 81 Mg Ec Tablet) 81 mg PO DAILY SARAH Last Admin: 10/16/24 09:04 Dose: 81 mg Atorvastatin Calcium (Atorvastatin 40 Mg Tablet) 40 mg PO BEDTIME SARAH Last Admin: 10/15/24 20:09 Dose: 40 mg Chlorhexidine Gluconate (Chlorhexidine Gluconate 4% Btl 118 Ml) 1 applic TOPICAL DAILY PRN PRN Reason: Intubated patient Furosemide (Furosemide 10 Mg/Ml Sdv 10ml) 60 mg IVP Q12H [facility] Amiodarone HCl/Dextrose (Nexterone) 360 mg in 200 mls @ 0 mls/hr IV .Q0M SARAH; Protocol Last Admin: 10/15/24 22:28 Dose: 0.5 mg/min, 16.67 mls/hr Fentanyl (Sublimaze) 2,500 mcg in 250 mls @ 0 mls/hr IV .Q0M SARAH; Protocol Last Titration: 10/16/24 06:27 Dose: 75 mcg/hr, 7.5 mls/hr Propofol (Diprivan) 1,000 mg in 100 mls @ 0 mls/hr IV .Q0M SARAH; Protocol Last Titration: 10/16/24 06:34 Dose: 15 mcg/kg/min, 12.96 mls/hr Methylprednisolone Sodium Succinate (Methylprednisolone Sod Succ 40 Mg/Ml Inj) 40 mg IVP Q6H SARAH Last Admin: 10/16/24 03:59 Dose: 40 mg Ondansetron HCl (Ondansetron 2 Mg/Ml Sdv 2 Ml) 4 mg IVP Q6H PRN PRN Reason: NAUSEA AND VOMITING Pantoprazole Sodium (Pantoprazole 40 Mg Sdv) 40 mg IVP Q12H [facility] Last Admin: 10/15/24 20:08 Dose: 40 mg Vitals/I&O/Wt Last Vital Signs Temp 98.3 F 10/16/24 05:59 Pulse 70 10/16/24 09:01 Resp 12 10/16/24 08:53 BP 119/48 10/16/24 05:45 Pulse Ox 93 10/16/24 08:53 O2 Del Method Mechanical Ventilation 10/16/24 08:50 O2 Flow Rate 4 10/15/24 02:04 FiO2 60 10/16/24 08:53 10/15/24 10/16/24 10/16/24 22:59 06:59 14:59 Intake Total 412.858 / 717.580 290.276 / 1007.856 Output Total 1000 / 1000 1000 / 2000 Balance -587.142 / -282.420 -709.724 / -992.144 Weight last 48 hrs Weight 320 lb 12.361 oz Weight 317 lb 7.45 oz Weight 300 lb Physical Exam 2 Narrative: GENERAL: The patient is intubated and sedated. Morbidly obese. HEENT: No significant pallor, icterus or lymphadenopathy.Oral cavity: There are no mucous membrane lesions. NECK: Trachea appears to be central. No masses noted. No JVD or thyromegaly appreciated. RESPIRATORY: Chest is symmetrical. No intercostals muscle retraction or any accessory muscle activation. There is no chest wall tenderness. Breath sounds are heard bilaterally diminished intensity of breath sounds in the bases. BREASTS: Deferred. HEART: The heart sounds are normal. No S3 or S4. No significant murmurs. No pericardial rub ABDOMEN: No vessel pulsations or distention. No tenderness. No organomegaly appreciated. Bowel sounds are normally heard. : Deferred. RECTAL: Deferred. LYMPHATIC: No lymphadenopathy noted in the neck. EXTREMITIES: 1-2+ edema both lower extremities. Minimal redness in the lower part. Some healing blisters are present MUSCULOSKELETAL: No acute joint deformities or swelling SKIN: There are no significant rashes or ecchymosis NEUROPSYCHIATRIC: The patient is alert and oriented x3. Appears to be in a good mood. No tremors or rigidity noted. Urinary Catheter Management: Veras: Cath Placed During This Visit: yes Reason for Continuing Indwelling Catheter: Accurate Measurement of Urinary Output in Critically Ill Patients Urinary Catheter Date of Insertion: 10/15/24 Data 10/16/24 03:29 10/16/24 04:55 Other Labs: Laboratory Last Values WBC 11.58 10^3/uL (3.29-11.43) H 10/16/24 03:29 RBC 3.03 10^6/uL (3.85-5.65) L 10/16/24 03:29 Hgb 8.40 g/dL (11.27-16.99) L 10/16/24 03:29 Hct 31.0 % (36-47) L 10/16/24 03:29 MCV 102.3 fl (85-98) H 10/16/24 03:29 MCH 27.7 pg (27-33) 10/16/24 03: MCHC 27.1 g/dL (30-55) L 10/16/24 03:29 RDW 15.9 % (12.1-15.1) H 10/16/24 03:29 Plt Count 252 10^3/cmm (157-399) D 10/16/24 03:29 MPV 11.6 fL (7.4-10.4) H 10/16/24 03:29 Neut % (Auto) 91.2 % 10/16/24 03:29 Lymph % (Auto) 6.0 % 10/16/24 03:29 [place] % (Auto) 2.3 % 10/16/24 03:29 Eos % (Auto) 0.0 % 10/16/24 03:29 Baso % (Auto) 0.1 % 10/16/24 03:29 Neut # (Auto) 10.55 10^3/uL (1.8-7.7) H 10/16/24 03:29 Lymph # (Auto) 0.7 10^3/uL (0.8-4.8) L 10/16/24 03:29 [place] # (Auto) 0.3 10^3/uL (0.2-0.9) 10/16/24 03:29 Eos # (Auto) 0.0 10^3/uL (0.0-0.8) 10/16/24 03:29 Baso # (Auto) 0.0 10^3/uL (0.0-0.1) 10/16/24 03:29 Nucleated RBC % (auto) 0 % 10/16/24 03:29 Nucleated RBCs # 0.0 /100WBC 10/16/24 03:29 PT 13.50 SECONDS (12.1-14.9) 10/15/24 01:54 INR 0.96 (0.8-1.2) 10/15/24 01:54 Specimen Type Arterial 10/16/24 03:40 Sample Site Brachial, right 10/16/24 03:40 ABG pH 7.47 (7.35-7.45) H 10/16/24 03:40 ABG pCO2 68.4 mmHg (35-45) H* 10/16/24 03:40 ABG pO2 58.8 mmHg (80.0-100.0) L 10/16/24 03:40 ABG PO2/FiO2 Ratio 117 10/16/24 03:40 ABG HCO3 50.1 mmol/L (22-26) H 10/16/24 03:40 ABG O2 Saturation 91.7 10/16/24 03:40 ABG Base Excess 23.2 mmol/L (-2.0-2.0) H 10/16/24 03:40 [place] Test N/a 10/16/24 03:40 A-a O2 Gradient 28.2 mmHg (5-10) H 10/16/24 03:40 Hematocrit 29.7 % (37-47) L 10/16/24 03:40 Hgb O2 Saturation 89.5 % (95-100) L 10/16/24 03:40 Carboxyhemoglobin 1.4 %THgb (0.4-20.1) 10/16/24 03:40 Methemoglobin 1.0 % (0.4-1.5) 10/16/24 03:40 Total Hemoglobin 9.7 g/dL (12-16) L 10/16/24 03:40 Sodium 142.0 mmol/L (131-143) 10/16/24 03:40 Potassium 3.5 mmol/L (3.5-5.0) 10/16/24 03:40 Glucose 147.0 mg/dL (70-115) H 10/16/24 03:40 Ionized Calcium 1.2 mmol/L (1.1-1.4) 10/16/24 03:40 O2 Delivery Device Vent 10/16/24 03:40 FiO2 50.0 % 10/16/24 03:40 Tidal Volume 0.35 10/16/24 03:40 PEEP 10.0 cmH20 10/16/24 03:40 Product Introduction Manager ID [id number] 10/16/24 03:40 Sodium 143 mmol/L (136-145) 10/16/24 04:55 Potassium 3.8 mmol/L (3.5-5.1) 10/16/24 04:55 Chloride 93 mmol/L (98-107) L 10/16/24 04:55 Carbon Dioxide 42 mmol/L (22-29) H* 10/16/24 04:55 Anion Gap 11.8 (5-19) 10/16/24 04:55 BUN 23 mg/dL (8-23) 10/16/24 04:55 Creatinine 0.8 mg/dL (0.5-0.9) 10/16/24 04:55 GFR Calculation 72.4 mL/min (90-130) L 10/16/24 04:55 Glucose 148 mg/dL (65-115) H 10/16/24 04:55 Calculated Osmolality 302 mOsm/kg (285-295) H 10/16/24 04:55 Calcium 8.9 mg/dL (8.5-10.5) 10/16/24 04:55 Phosphorus 2.5 mg/dL (2.5-4.5) 10/16/24 04:55 Magnesium 1.9 mg/dL (1.7-2.3) 10/16/24 04:55 Total Bilirubin 0.4 mg/dL (0.15-1.2) 10/16/24 04:55 AST 11 U/L (0-32) 10/16/24 04:55 ALT 6 U/L (0-33) 10/16/24 04:55 Alkaline Phosphatase 83 U/L (35-105) 10/16/24 04:55 Troponin T Baseline 16 ng/L (0-10) H 10/15/24 01:54 Troponin T 120 Minute 15.40 ng/L (0-10) H 10/15/24 04:08 Delta Troponin T -0.60 ABS# (0-10) L 10/15/24 04:08 Troponin T Hi Sens 6Hr 14.49 ng/L (0-10) H 10/15/24 08:25 Troponin T Hi Sens 6Hr Delta -1.51 ng/L (0-12) L 10/15/24 08:25 NT-Pro-B Natriuret Pep 5356 pg/mL (0-125) H 10/15/24 04:08 Total Protein 6.2 g/dL (6.6-8.7) L 10/16/24 04:55 Albumin 3.2 g/dL (3.5-5.2) L 10/16/24 04:55 Globulin 3.0 g/dL (1.3-4.6) 10/16/24 04:55 Procalcitonin 0.05 ng/mL (0-0.5) 10/15/24 04:08 Micro: Microbiology 10/15/24 08:30 Gram Stain - Final Sputum - Endotracheal Tube Aspirate A&P Assessment and plan (1) Atrial fibrillation with rapid ventricular response: The ventricular rate seems to be getting under control. She will be started on metoprolol 50 mg p.o. twice daily. Apparently she was taking Betapace and Cardizem at home. Because of relatively low blood pressure, I may hold off on the Cardizem. Since she seems to be chronically in atrial fibrillation, I also may discontinue the Betapace and start her on metoprolol. (2) Acute on chronic diastolic (congestive) heart failure: The heart failure seems to be getting compensated. May be treated with IV diuresis on a as needed basis. LV ejection fraction is around 32%. Will consider starting her on Entresto, when the blood pressure is stable (3) Acute hypoxic on chronic hypercapnic respiratory failure: Patient is a severe COPD/obstructive sleep apnea / noncompliance to BiPAP are seem to be the major contributing factors for the current respiratory failure. (4) Obstructive sleep apnea: The patient has been very noncompliant with treatment. She was supposed to be using the BiPAP. (5) Morbid obesity: Patient has been poorly compliant with the diet and medical follow-ups. Plan Other problems are chronic anemia Peripheral edema, seems to be improved Dyslipidemia GERD High risk medication Still try to get the medical records from [place]. May continue on the current measures. Metoprolol 50 mg p.o. now and every 12 hours. Based on the clinical progress, further management decisions will be made PDMP PDMP Reviewed: Not Reviewed Attestations 2 Medical Necessity Statement*: Deferred to the primary Coding Level of Care Code 35636 Diagnoses Atrial fibrillation with rapid ventricular response I48.91 Acute on chronic diastolic (congestive) heart failure I50.33 Acute hypoxic on chronic hypercapnic respiratory failure J96.01; J96.12 Obstructive sleep apnea G47.33 Morbid obesity E66.01
--- NOTE | 2024-10-16 09:46 | PC.NUTR ---
Consult received for TF recommendations. Recommend Jevity 1.5 beginning @ 15mls/hr, increasing 10mls Q4-8H as tolerated until goal rate of 45 mls/hr is reached, with FWF 100mls Q4H or per MD discretion.
[2024-10-16] MEDS: pantoprazole 40 mg SDV IVP ×2 (10:24→21:52)
--- NOTE | 2024-10-16 10:40 | P.PN_ITS ---
Subjective 2 Subjective: Patient remains intubated and sedated which limits history. Medications: Reviewed: Yes Medication Review Details: Current Medications Acetaminophen (Acetaminophen 500 Mg Tablet) 500 mg PO Q4H PRN PRN Reason: fever Albuterol/Ipratropium (Ipratropium-Albuterol 3 Ml Neb) 3 ml INHALATION Q6H PRN PRN Reason: SHORTNESS OF BREATH Last Admin: 10/16/24 08:50 Dose: 3 ml Apixaban (Apixaban 5 Mg Tablet) 5 mg OG-TUBE BID@0900,2100 SARAH Last Admin: 10/16/24 09:04 Dose: 5 mg Aspirin (Aspirin 81 Mg Ec Tablet) 81 mg PO DAILY SARAH Last Admin: 10/16/24 09:04 Dose: 81 mg Atorvastatin Calcium (Atorvastatin 40 Mg Tablet) 40 mg PO BEDTIME SARAH Last Admin: 10/15/24 20:09 Dose: 40 mg Chlorhexidine Gluconate (Chlorhexidine Gluconate 4% Btl 118 Ml) 1 applic TOPICAL DAILY PRN PRN Reason: Intubated patient Furosemide (Furosemide 10 Mg/Ml Sdv 10ml) 60 mg IVP Q12H SARAH Amiodarone HCl/Dextrose (Nexterone) 360 mg in 200 mls @ 0 mls/hr IV .Q0M SARAH; Protocol Last Admin: 10/15/24 22:28 Dose: 0.5 mg/min, 16.67 mls/hr Fentanyl (Sublimaze) 2,500 mcg in 250 mls @ 0 mls/hr IV .Q0M SARAH; Protocol Last Titration: 10/16/24 06:27 Dose: 75 mcg/hr, 7.5 mls/hr Propofol (Diprivan) 1,000 mg in 100 mls @ 0 mls/hr IV .Q0M SARAH; Protocol Last Titration: 10/16/24 06:34 Dose: 15 mcg/kg/min, 12.96 mls/hr Methylprednisolone Sodium Succinate (Methylprednisolone Sod Succ 40 Mg/Ml Inj) 40 mg IVP Q6H SARAH Last Admin: 10/16/24 03:59 Dose: 40 mg Ondansetron HCl (Ondansetron 2 Mg/Ml Sdv 2 Ml) 4 mg IVP Q6H PRN PRN Reason: NAUSEA AND VOMITING Pantoprazole Sodium (Pantoprazole 40 Mg Sdv) 40 mg IVP Q12H SARAH Last Admin: 10/15/24 20:08 Dose: 40 mg Vitals/I&O/Wt Last Vital Signs Temp 98.3 F 10/16/24 05:59 Pulse 70 10/16/24 09:01 Resp 12 10/16/24 10:05 BP 119/48 10/16/24 05:45 Pulse Ox 94 10/16/24 10:05 O2 Del Method Mechanical Ventilation 10/16/24 08:50 O2 Flow Rate 4 10/15/24 02:04 FiO2 60 10/16/24 10:05 10/15/24 10/16/24 10/16/24 22:59 06:59 14:59 Intake Total 412.858 / 717.580 290.276 / 1007.856 Output Total 1000 / 1000 1000 / 1999 Balance -587.142 / -282.420 -709.724 / -992.144 Weight last 48 hrs Weight 145.5 kg Weight 144 kg Weight 136.078 kg Physical Exam 2 Narrative: General: Patient is intubated and sedated. Head: Normocephalic. Atraumatic. Neck: Elevated JVD. Cardiovascular: No gallops. No murmurs. 2+ pitting edema in bilateral lower extremities. Lungs: Breath sounds bilateral bases. Dependent crackles. No rales. Intubated with mechanical ventilation. Skin: No jaundice. No rashes. Abdomen: Hypoactive bowel sounds, abdomen soft. Extremities: No cyanosis or clubbing. Musculoskeletal: No swollen or erythematous joints. Neurological: No myoclonus. Sedated. Urinary Catheter Management: Veras: Cath Placed During This Visit: yes Reason for Continuing Indwelling Catheter: Accurate Measurement of Urinary Output in Critically Ill Patients Urinary Catheter Date of Insertion: 10/15/24 Data 10/16/24 03:29 10/16/24 04:55 Micro: Microbiology 10/15/24 08:30 Gram Stain - Final Sputum - Endotracheal Tube Aspirate A&P Assessment and plan (1) Congestive heart failure: Qualifiers: Heart failure type: combined systolic and diastolic Heart failure chronicity: acute on chronic Qualified Code(s): I50.43 - Acute on chronic combined systolic (congestive) and diastolic (congestive) heart failure (2) Acute on chronic heart failure with reduced ejection fraction and diastolic dysfunction: (3) Atrial fibrillation with RVR: (4) Morbid obesity: (5) Encephalopathy acute: (6) On home oxygen therapy: (7) Pleural effusion: Plan Acute hypercapnic respiratory failure Acute on chronic complex respiratory failure - Baseline oxygen requirement reportedly around 4 L - Reportedly non-compliant with BiPAP at home prior to admission - Intubated 10/15 - Continue vent management - Fentanyl/propofol for analgesia/sedation - GI/DVT ppx - Chest x-ray reviewed, still fluid overloaded - Continue treating underlying CHF and COPD - Patient discussed with respiratory therapist - Ongoing vent management Acute diastolic heart failure with preserved ejection fraction - Strict I&Os; net negative ~1L - Increase IV diuresis, monitor hemodynamics and electrolytes - Optimize heart rate - Cardiology following Atrial fibrillation - On sotalol and Cardizem prior to admission - Continue amiodarone infusion - Continue apixaban for stroke ppx - Cardiology following Acute COPD exacerbation - Continue systemic steroids - Continue breathing treatments Acute metabolic encephalopathy with CO2 narcosis - Patient now sedated Compensatory metabolic alkalosis - Diamox x1 DVT ppx: Apixaban Code: Full Code PDMP PDMP Reviewed: Not Reviewed Attestations 2 Medical Necessity Statement*: Patient requires ongoing hospitalization for vent support, IV diuresis, IV steroids and supportive care. Critical Care Time: The high probability of a clinically significant, sudden or life threatening deterioration of the patient's respiratory, cardiac, circulatory system(s) required my full and direct attention, intervention and personal management. The critical care time is as shown. This time is in addition to time spent performing any reported procedures but includes the following: [x] Data and vital sign review and interpretation [x] Patient assessment, examination and intervention [x] Documentation [x] Medication orders and management Critical Care Time (min): 40 Coding Level of Care Code Acute Code for Chg Fwd Diagnoses Acute on chronic combined systolic and diastolic congestive heart failure I50.43 Heart failure type: combined systolic and diastolic Heart failure chronicity: acute on chronic Acute on chronic heart failure with reduced ejection fraction and diastolic dysfunction I50.43 Atrial fibrillation with RVR I48.91 Morbid obesity E66.01 Encephalopathy acute G93.40 On home oxygen therapy Z99.81 Pleural effusion J90
--- NOTE | 2024-10-16 11:31 | PC.SOCIAL ---
IMM Update pg 2 of IMM not updated @ this time as patient is intubated. Copy left @ bedside and copy dated, initialed and placed in chart.
[2024-10-16] MEDS: potassium chloride oral liq 20 mEq/15 mL UDC NG-TUBE (11:36)
[2024-10-16] MEDS: propofol 1,000 MG/100 ML INJ 12.96 MG IV ×2 (12:13→23:48)
[2024-10-16] MEDS: fentaNYL 2,500 MCG/250 ML BAG 7.5 MCG IV (16:09)
[2024-10-16] MEDS: FUROsemide 10 mg/mL SDV 10mL 60 MG IVP (17:58)
[2024-10-16] MEDS: propofol 1,000 MG/100 ML INJ 17.28 MG IV (18:03)
--- NOTE | 2024-10-16 19:24 | PC.NURSE ---
Shift summary: Pt remains sedated and intubated this shift. Her Heart rate lowered to 58, she still is in Afib but has having pauses at least a second long this shift. Dr Wise was notified and ordered Amio gtt to be stopped. Her Herat rate is o in 80. She remains in A fib. Fentanyl gtt remains at 75 mcg/hr. Propofol increased to 20 mcg/kg/min. Fio2 at 35%. Her lung sounds were wheezy at auscultation. They now sound clear and dimished. Jevity tube feeding started with H2O flushes as ordered. She was started on Diamox per OG. She also had Lasix IV this evening. Her urine output was 1450ml this shift. her legs remain edematous, left greater than right. Left reddened with a bruised looking area on the front. Family has sat at bedside for most of the shift.
[2024-10-16] MEDS: atorvastatin 40 mg Tablet PO (21:52)
[2024-10-16] MEDS: metoprolol tartrate 50 mg Tablet OG-TUBE (21:52)
[2024-10-17] VITALS (71 sets, daily range): BP systolic 82–153; BP diastolic 43–108; PULSE 63–121; RESP 12–18; TEMP 36.3–36.7; O2SAT 89–96
[2024-10-17] MEDS: ipratropium-albuterol 3 mL Neb INHALATION ×3 (01:15→20:55)
--- NOTE | 2024-10-17 04:00 | XRR_ITS ---
PROCEDURE INFORMATION: Exam: XR Chest Exam date and time: 10/17/2024 3:15 AM Age: 64 years old Clinical indication: Dyspnea and shortness of breath; Additional info: Respiratory failure TECHNIQUE: Imaging protocol: Radiologic exam of the chest. Views: 1 view. COMPARISON: CR (CHEST, ) 10/16/2024 4:07 AM FINDINGS: Tubes, catheters and devices: Feeding tube is in satisfactory position. Endotracheal tube is in satisfactory position. Right sided PICC is in satisfactory position, with distal tip at the level of the SVC/RA junction. Lungs: There are increased lung markings and haziness of the lungs in association with small bilateral pleural effusions, which in the setting of cardiomegaly is consistent with pulmonary edema. Pneumonia should be excluded clinically. No pneumothorax. Pleural spaces: See Lungs finding. Heart/Mediastinum: Stable cardiomediastinal silhouette. Bones/joints: Unremarkable. XR/XR chest 1V portable [id number] IMPRESSION: Imaging findings of pulmonary edema with small bilateral pleural effusions. Pneumonia should be considered in the adequate clinical setting.
[2024-10-17 04:04] LABS: ABG PH Result 7.47 (7.35-7.45); Arterial Blood Gas Hematocrit 29.6 % (37-47); Base Excess ABG 21.5 mmol/L (-2.0-2.0); Blood Gas Allen Test Pos; Blood Gas Sample Type Arterial; Carboxyhemoglobin 1.3 %THgb (0.4-20.1); HCO3 ABG 48.3 mmol/L (22-26); HGB O2 Sat 89.6 % (95-100); Ionized Calcium Level - ABG 1.2 mmol/L (1.1-1.4); Methemoglobin < 0.0 % (0.4-1.5); Oxygen Saturation ABG 90.7; PO2 ABG 58.2 mmHg (80.0-100.0); Potassium Level - ABG 2.8 mmol/L (3.5-5.0); Total Hemoglobin 9.6 g/dL (12-16)
[2024-10-17 04:05] LABS: Alveolar-Arterial Oxygen Gradi 37.7 mmHg (5-10); Blood Gas Operator Identificat ED; Blood Gas Sample Site Radial, left; Blood Gas Tidal Volume 0.35; Oxygen Device VENT; PO2 FiO2 Ratio Arterial Blood 97
[2024-10-17 04:26] LABS: Basophils % 0.1 %; Hematocrit 33.5 % (36-47); Lymphocytes # 0.6 10^3/uL (0.8-4.8); Lymphocytes % 3.8 %; Mean Corpuscular HGB Conc 28.1 g/dL (30-55); Mean Corpuscular Hemoglobin 27.8 pg (27-33); Mean Corpuscular Volume 99.1 fl (85-98); Mean Platelet Volume 11.2 fL (7.4-10.4); Monocytes # 0.7 10^3/uL (0.2-0.9); Monocytes % 4.5 %; Neutrophils # 13.46 10^3/uL (1.8-7.7); Neutrophils % 90.8 %; Nucleated Red Blood Cells % 0 %; Platelet Count 284 10^3/cmm (157-399); Red Blood Count 3.38 10^6/uL (3.85-5.65); Red Cell Distribution Width 15.9 % (12.1-15.1); White Blood Count 14.82 10^3/uL (3.29-11.43)
[2024-10-17 04:43] LABS: Albumin Level 3.2 g/dL (3.5-5.2); Blood Urea Nitrogen 24 mg/dL (8-23); Calcium 8.7 mg/dL (8.5-10.5); Chloride 92 mmol/L (98-107); Creatinine Clr Calc Pharmacy 119.9917; Glomerular Filtration Rate 84.5 mL/min (90-130); Glucose 149 mg/dL (65-115); Sodium 143 mmol/L (136-145)
[2024-10-17] MEDS: methylPREDNISolone sod succ 40 mg/mL INJ IVP ×3 (04:43→16:11)
[2024-10-17] MEDS: propofol 1,000 MG/100 ML INJ 17.28 MG IV ×3 (04:50→14:56)
[2024-10-17 04:59] LABS: Carbon Dioxide 43 mmol/L (22-29)
--- NOTE | 2024-10-17 07:12 | PC.NURSE ---
Lasix: 0600 dose of lasix retimed for [address] Wise due to potassium of 3.0.
[2024-10-17 08:11] LABS: D Dimer 1.11 ug/mLFEU (0-0.59)
[2024-10-17 08:27] LABS: ABG PCO2 67.2 mmHg (35-45)
[2024-10-17 08:30] LABS: Procalcitonin 0.05 ng/mL (0-0.5)
--- NOTE | 2024-10-17 08:59 | CT_ITS ---
WS: [id number] CTA OF THE CHEST WITH PULMONARY EMBOLISM PROTOCOL TECHNIQUE: High-resolution contrast enhanced CTA of the chest with coronal and sagittal reformatted images with pulmonary embolism protocol. MIP images are also reviewed. CLINICAL INFORMATION: Respiratory failure, elevated d dimer COMPARISON: None. DLP: 588.[address] scans at [facility] use at least one of these dose optimization techniques: automated exposure control; mA and/or kV adjustment per patient size (includes targeted exams where dose is matched to clinical indication); or iterative reconstruction. FINDINGS: Endotracheal tube at the negrita directed towards the RIGHT mainstem bronchus. Proximal main pulmonary arteries are normal. No evidence of pulmonary embolus. Cardiomegaly. Aortic and coronary calcification. Small bilateral pleural effusions with compressive atelectasis in the lung bases with consolidation. Enteric tube with tip in the stomach. CT/CT angio chest PE protcl [id number] IMPRESSION: 1. No evidence of pulmonary embolus. 2. Shallow inspiration with small bilateral pleural effusions and compressive consolidation in the lung bases
[2024-10-17] MEDS: cefepime 2,000 mg SDV 2000 MG IVP ×2 (09:04→16:11)
--- NOTE | 2024-10-17 09:04 | P.PN_ITS ---
Subjective 2 Subjective: The patient is still remaining intubated. She is requiring FiO2 70%. CT of the chest was done to rule out any PE. No PE was noted. Medications: Medication Review Details: Current Medications Acetaminophen (Acetaminophen 500 Mg Tablet) 500 mg PO Q4H PRN PRN Reason: fever Acetazolamide (Acetazolamide 250 Mg Tablet) 250 mg PO DAILY [facility] Albuterol/Ipratropium (Ipratropium-Albuterol 3 Ml Neb) 3 ml INHALATION Q6H PRN PRN Reason: SHORTNESS OF BREATH Last Admin: 10/17/24 07:31 Dose: 3 ml Apixaban (Apixaban 5 Mg Tablet) 5 mg OG-TUBE BID@0900,2100 [facility] Last Admin: 10/16/24 21:51 Dose: 5 mg Aspirin (Aspirin 81 Mg Ec Tablet) 81 mg PO DAILY [facility] Last Admin: 10/16/24 09:04 Dose: 81 mg Atorvastatin Calcium (Atorvastatin 40 Mg Tablet) 40 mg PO BEDTIME [facility] Last Admin: 10/16/24 21:52 Dose: 40 mg Cefepime HCl (Cefepime 2,000 Mg Sdv) 2,000 mg IVP Q8H [facility]; Protocol Chlorhexidine Gluconate (Chlorhexidine Gluconate 4% Btl 118 Ml) 1 applic TOPICAL DAILY PRN PRN Reason: Intubated patient Furosemide (Furosemide 10 Mg/Ml Sdv 10ml) 60 mg IVP Q12H [facility] Last Admin: 10/16/24 17:58 Dose: 60 mg Fentanyl (Sublimaze) 2,500 mcg in 250 mls @ 0 mls/hr IV .Q0M [facility]; Protocol Last Titration: 10/17/24 00:45 Dose: 100 mcg/hr, 10 mls/hr Propofol (Diprivan) 1,000 mg in 100 mls @ 0 mls/hr IV .Q0M [facility]; Protocol Last Admin: 10/17/24 04:50 Dose: 20 mcg/kg/min, 17.28 mls/hr Methylprednisolone Sodium Succinate (Methylprednisolone Sod Succ 40 Mg/Ml Inj) 40 mg IVP Q6H [facility] Last Admin: 10/17/24 04:43 Dose: 40 mg Metoprolol Tartrate (Metoprolol Tartrate 50 Mg Tablet) 50 mg OG-TUBE BID@0900,2100 [facility] Last Admin: 10/16/24 21:52 Dose: 50 mg Ondansetron HCl (Ondansetron 2 Mg/Ml Sdv 2 Ml) 4 mg IVP Q6H PRN PRN Reason: NAUSEA AND VOMITING Pantoprazole Sodium (Pantoprazole 40 Mg Sdv) 40 mg IVP Q12H [facility] Last Admin: 10/16/24 21:52 Dose: 40 mg Potassium Chloride (Potassium Chloride Oral Liq 20 Meq/15 Ml Udc) 40 meq PO Q4H [facility] Stop: 10/17/24 11:31 Vitals/I&O/Wt Last Vital Signs Temp 97.7 F 10/17/24 08:45 Pulse 78 10/17/24 08:45 Resp 12 10/17/24 08:45 BP 134/108 10/17/24 08:45 Pulse Ox 94 10/17/24 08:45 O2 Del Method Mechanical Ventilation 10/17/24 08:45 O2 Flow Rate 4 10/15/24 02:04 FiO2 75 10/17/24 08:45 10/16/24 10/17/24 10/17/24 22:59 06:59 14:59 Intake Total 384.319 / 665.383 491.428 / 1156.811 Output Total 1450 / 1450 2000 / 3450 175 / 175 Balance -1065.681 / -784.617 -1508.572 / -2293.189 -175 / -175 Weight last 48 hrs Weight 315 lb 4.176 oz Weight 320 lb 12.361 oz Physical Exam 2 Narrative: GENERAL: The patient is intubated and sedated. Morbidly obese. HEENT: No significant pallor, icterus or lymphadenopathy.Oral cavity: There are no mucous membrane lesions. NECK: Trachea appears to be central. No masses noted. No JVD or thyromegaly appreciated. RESPIRATORY: Chest is symmetrical. No intercostals muscle retraction or any accessory muscle activation. There is no chest wall tenderness. Breath sounds are heard bilaterally diminished intensity of breath sounds in the bases. Scattered coarse crackles BREASTS: Deferred. HEART: The heart sounds are normal. No S3 or S4. No significant murmurs. No pericardial rub ABDOMEN: No vessel pulsations or distention. No tenderness. No organomegaly appreciated. Bowel sounds are normally heard. : Deferred. RECTAL: Deferred. LYMPHATIC: No lymphadenopathy noted in the neck. EXTREMITIES: 1-2+ edema both lower extremities. Minimal redness in the lower part. Some healing blisters are present MUSCULOSKELETAL: No acute joint deformities or swelling SKIN: There are no significant rashes or ecchymosis NEUROPSYCHIATRIC: The patient is alert and oriented x3. Appears to be in a good mood. No tremors or rigidity noted. Urinary Catheter Management: Veras: Cath Placed During This Visit: yes Reason for Continuing Indwelling Catheter: Accurate Measurement of Urinary Output in Critically Ill Patients Urinary Catheter Date of Insertion: 10/15/24 Data 10/17/24 03:43 10/17/24 03:43 Other Labs: Laboratory Last Values WBC 14.82 10^3/uL (3.29-11.43) H 10/17/24 03:43 RBC 3.38 10^6/uL (3.85-5.65) L 10/17/24 03:43 Hgb 9.40 g/dL (11.27-16.99) L 10/17/24 03:43 Hct 33.5 % (36-47) L 10/17/24 03:43 MCV 99.1 fl (85-98) H 10/17/24 03:43 MCH 27.8 pg (27-33) 10/17/24 03:43 MCHC 28.1 g/dL (30-55) L 10/17/24 03:43 RDW 15.9 % (12.1-15.1) H 10/17/24 03:43 Plt Count 284 10^3/cmm (157-399) 10/17/24 03:43 MPV 11.2 fL (7.4-10.4) H 10/17/24 03:43 Neut % (Auto) 90.8 % 10/17/24 03:43 Lymph % (Auto) 3.8 % 10/17/24 03:43 Moody % (Auto) 4.5 % 10/17/24 03:43 Eos % (Auto) 0.0 % 10/17/24 03:43 Baso % (Auto) 0.1 % 10/17/24 03:43 Neut # (Auto) 13.46 10^3/uL (1.8-7.7) H 10/17/24 03:43 Lymph # (Auto) 0.6 10^3/uL (0.8-4.8) L 10/17/24 03:43 Moody # (Auto) 0.7 10^3/uL (0.2-0.9) 10/17/24 03:43 Eos # (Auto) 0.0 10^3/uL (0.0-0.8) 10/17/24 03:43 Baso # (Auto) 0.0 10^3/uL (0.0-0.1) 10/17/24 03:43 Nucleated RBC % (auto) 0 % 10/17/24 03:43 Nucleated RBCs # 0.0 /100WBC 10/17/24 03:43 PT 13.50 SECONDS (12.1-14.9) 10/15/24 01:54 INR 0.96 (0.8-1.2) 10/15/24 01:54 D-Dimer 1.11 ug/mLFEU (0-0.59) H 10/17/24 07:44 Specimen Type Arterial 10/17/24 03:45 Sample Site Radial, left 10/17/24 03:45 ABG pH 7.47 (7.35-7.45) H 10/17/24 03:45 ABG pCO2 67.2 mmHg (35-45) H* 10/17/24 03:45 ABG pO2 58.2 mmHg (80.0-100.0) L 10/17/24 03:45 ABG PO2/FiO2 Ratio 97 10/17/24 03:45 ABG HCO3 48.3 mmol/L (22-26) H 10/17/24 03:45 ABG O2 Saturation 90.7 10/17/24 03:45 ABG Base Excess 21.5 mmol/L (-2.0-2.0) H 10/17/24 03:45 Morro Test Pos 10/17/24 03:45 A-a O2 Gradient 37.7 mmHg (5-10) H 10/17/24 03:45 Hematocrit 29.6 % (37-47) L 10/17/24 03:45 Hgb O2 Saturation 89.6 % (95-100) L 10/17/24 03:45 Carboxyhemoglobin 1.3 %THgb (0.4-20.1) 10/17/24 03:45 Methemoglobin < 0.0 % (0.4-1.5) L 10/17/24 03:45 Total Hemoglobin 9.6 g/dL (12-16) L 10/17/24 03:45 Sodium 143.0 mmol/L (131-143) 10/17/24 03:45 Potassium 2.8 mmol/L (3.5-5.0) L 10/17/24 03:45 Glucose 147.0 mg/dL (70-115) H 10/17/24 03:45 Ionized Calcium 1.2 mmol/L (1.1-1.4) 10/17/24 03:45 O2 Delivery Device Vent 10/17/24 03:45 FiO2 60.0 % 10/17/24 03:45 Tidal Volume 0.35 10/17/24 03:45 PEEP 10.0 cmH20 10/17/24 03:45 Laborer Brush Clearing ID Ed 10/17/24 03:45 Sodium 143 mmol/L (136-145) 10/17/24 03:43 Potassium 3.0 mmol/L (3.5-5.1) L 10/17/24 03:43 Chloride 92 mmol/L (98-107) L 10/17/24 03:43 Carbon Dioxide 43 mmol/L (22-29) H* 10/17/24 03:43 Anion Gap 11.0 (5-19) 10/17/24 03:43 BUN 24 mg/dL (8-23) H 10/17/24 03:43 Creatinine 0.7 mg/dL (0.5-0.9) 10/17/24 03:43 GFR Calculation 84.5 mL/min (90-130) L 10/17/24 03:43 Glucose 149 mg/dL (65-115) H 10/17/24 03:43 Calculated Osmolality 302 mOsm/kg (285-295) H 10/16/24 04:55 Calcium 8.7 mg/dL (8.5-10.5) 10/17/24 03:43 Phosphorus 3.0 mg/dL (2.5-4.5) 10/17/24 03:43 Magnesium 2.0 mg/dL (1.7-2.3) 10/17/24 03:43 Total Bilirubin 0.4 mg/dL (0.15-1.2) 10/16/24 04:55 AST 11 U/L (0-32) 10/16/24 04:55 ALT 6 U/L (0-33) 10/16/24 04:55 Alkaline Phosphatase 83 U/L (35-105) 10/16/24 04:55 Troponin T Baseline 16 ng/L (0-10) H 10/15/24 01:54 Troponin T 120 Minute 15.40 ng/L (0-10) H 10/15/24 04:08 Delta Troponin T -0.60 ABS# (0-10) L 10/15/24 04:08 Troponin T Hi Sens 6Hr 14.49 ng/L (0-10) H 10/15/24 08:25 Troponin T Hi Sens 6Hr Delta -1.51 ng/L (0-12) L 10/15/24 08:25 C-Reactive Protein 21.0 mg/L (0.0-4.9) H 10/17/24 03:43 NT-Pro-B Natriuret Pep 5356 pg/mL (0-125) H 10/15/24 04:08 Total Protein 6.2 g/dL (6.6-8.7) L 10/16/24 04:55 Albumin 3.2 g/dL (3.5-5.2) L 10/17/24 03:43 Globulin 3.0 g/dL (1.3-4.6) 10/16/24 04:55 Procalcitonin 0.05 ng/mL (0-0.5) 10/17/24 03:43 Micro: Microbiology 10/15/24 08:30 Gram Stain - Final Sputum - Endotracheal Tube Aspirate Sputum Culture - Preliminary A&P Assessment and plan (1) Atrial fibrillation with rapid ventricular response: Patient had some episodes of bradycardia last night. The metoprolol was held this morning. Currently the heart rate is in the 80s and 90s. Advised to cut back on metoprolol 25 mg p.o. twice daily (2) Hypokalemia: Requires potassium supplement. (3) Acute on chronic diastolic (congestive) heart failure: Continue on as needed IV Lasix. Patient seems to have pneumonia by the CT chest. (4) Acute hypoxic on chronic hypercapnic respiratory failure: COPD/sleep apnea/pneumonia other contributing factors. (5) Obstructive sleep apnea: The patient has been very noncompliant with treatment. (6) Morbid obesity: Patient has been poorly compliant with the diet and medical follow-ups. Plan Other problems are chronic anemia Peripheral edema, improving Dyslipidemia GERD High risk medication-currently off the sotalol Potassium need to be supplemented. Metoprolol 25 mg p.o. twice daily IV antibiotic Continue the other management PDMP PDMP Reviewed: Not Reviewed Attestations 2 Medical Necessity Statement*: Deferred to the primary Coding Level of Care Code Acute Code for Chg Fwd Diagnoses Atrial fibrillation with rapid ventricular response I48.91 Hypokalemia E87.6 Acute on chronic diastolic (congestive) heart failure I50.33 Acute hypoxic on chronic hypercapnic respiratory failure J96.01; J96.12 Obstructive sleep apnea G47.33 Morbid obesity E66.01
[2024-10-17] MEDS: pantoprazole 40 mg SDV IVP ×2 (09:05→20:43)
[2024-10-17] MEDS: acetaZOLAMIDE 250 mg Tablet PO (09:06)
[2024-10-17] MEDS: apixaban 5 mg Tablet OG-TUBE ×2 (09:06→20:43)
[2024-10-17] MEDS: potassium chloride oral liq 20 mEq/15 mL UDC 40 MEQ PO ×2 (09:07→12:20)
--- NOTE | 2024-10-17 10:36 | PC.NURSE ---
Code 10: While waiting on Dr wise to speak to the family for an update (Frandy is on unit with another patient), became very upset with staff. Started raising his voice and making accusations that we are going to kill her and that we are letting her . He is angry that she is still intubated and wants the ET tube removed. When nursing staff explains to him that it is not possible because not only are her oxygen requirements too high (75%), but it has increased from yesterday. It seems that the isn't comprehending what is being said because of his agitated state and he is only getting angrier. Nurse briefly left the room and asked charge nurse to call security and she called a code 10. Dr Wise then came to bedside and attempted to explain the care plan and reasonable goals but this only made the angrier. He started becoming more agitated, hitting the bed rails, made the comment to check writer salesperson of you won't like what happens to you if she dies . continues to become more agitated, gesturing to staff as though he will try to hurt them, raising his voice disrupting other patients. At this time multiple other nursing staff and security staff arrived. It was explained to the thathe will have to leave because his actions are disrupting other patients, preventing us from caring for Colette properly, and his threatening behavior towards staff. was given the option of leaving on his own free will or will be removed by security. After many minutes agreed to leave on his own. Was escorted out to the waiting room so he can calm down himself. Security informed him that he will be allowed back in at a later time but if he cannot remain calm he will be removed from the premises and and trespassed.
[2024-10-17] MEDS: iohexol 350 mg/mL 500 mL Btl (per mL) IV (11:41)
--- NOTE | 2024-10-17 11:47 | PM.PN ---
Subjective Subjective: Patient remains intubated and sedated. FiO2 75% up from 60% yesterday. Tolerating trickle feeds. Addendum: Later on the morning, noticed significant turmoil in the patient's room. Patient's bedside extremely agitated with staff. Into the room and attempted to address all his concerns. Spouse was loud and threatening. He perseverated on why patient was intubated in the first place. Demanding to talk to the doctor that intubated her. He perseverates that were not caring for her but is unable to explain why he feels this way. Sister is bedside stating that she is a nurse and she is upset that her name was and added a sick contact to the chart. Other than this complaint, she does not verbalize any other complaints regarding the patient's actual care. Despite de-escalation techniques, code 10 had to be called. Spouse reported when the previous physician that was here to take care of her. Confirmed that he wanted to fire me as the patient's physician. He did confirm this. I will transition care to another provider. Medications: Reviewed: Yes Medication Review Details: Current Medications Acetaminophen (Acetaminophen 500 Mg Tablet) 500 mg PO Q4H PRN PRN Reason: fever Albuterol/Ipratropium (Ipratropium-Albuterol 3 Ml Neb) 3 ml INHALATION Q6H PRN PRN Reason: SHORTNESS OF BREATH Last Admin: 10/16/24 08:50 Dose: 3 ml Apixaban (Apixaban 5 Mg Tablet) 5 mg OG-TUBE BID@0900,2100 [facility] Last Admin: 10/16/24 09:04 Dose: 5 mg Aspirin (Aspirin 81 Mg Ec Tablet) 81 mg PO DAILY [facility] Last Admin: 10/16/24 09:04 Dose: 81 mg Atorvastatin Calcium (Atorvastatin 40 Mg Tablet) 40 mg PO BEDTIME [facility] Last Admin: 10/15/24 20:09 Dose: 40 mg Chlorhexidine Gluconate (Chlorhexidine Gluconate 4% Btl 118 Ml) 1 applic TOPICAL DAILY PRN PRN Reason: Intubated patient Furosemide (Furosemide 10 Mg/Ml Sdv 10ml) 60 mg IVP Q12H [facility] Amiodarone HCl/Dextrose (Nexterone) 360 mg in 200 mls @ 0 mls/hr IV .Q0M [facility]; Protocol Last Admin: 10/15/24 22:28 Dose: 0.5 mg/min, 16.67 mls/hr Fentanyl (Sublimaze) 2,500 mcg in 250 mls @ 0 mls/hr IV .Q0M [facility]; Protocol Last Titration: 10/16/24 06:27 Dose: 75 mcg/hr, 7.5 mls/hr Propofol (Diprivan) 1,000 mg in 100 mls @ 0 mls/hr IV .Q0M [facility]; Protocol Last Titration: 10/16/24 06:34 Dose: 15 mcg/kg/min, 12.96 mls/hr Methylprednisolone Sodium Succinate (Methylprednisolone Sod Succ 40 Mg/Ml Inj) 40 mg IVP Q6H [facility] Last Admin: 10/16/24 03:59 Dose: 40 mg Ondansetron HCl (Ondansetron 2 Mg/Ml Sdv 2 Ml) 4 mg IVP Q6H PRN PRN Reason: NAUSEA AND VOMITING Pantoprazole Sodium (Pantoprazole 40 Mg Sdv) 40 mg IVP Q12H [facility] Last Admin: 10/15/24 20:08 Dose: 40 mg Vitals/I&O/Wt Last Vital Signs Temp 97.7 F 10/17/24 08:45 Pulse 78 10/17/24 08:45 Resp 12 10/17/24 10:42 BP 134/108 10/17/24 08:45 Pulse Ox 92 10/17/24 10:42 O2 Del Method Mechanical Ventilation 10/17/24 08:45 O2 Flow Rate 4 10/15/24 02:04 FiO2 75 10/17/24 10:42 10/16/24 10/17/24 10/17/24 22:59 06:59 14:59 Intake Total 384.319 / 665.383 491.428 / 1156.811 92.448 / 92.448 Output Total 1450 / 1450 1999 / 3450 175 / 175 Balance -1065.681 / -784.617 -1508.572 / -2293.189 -82.552 / -82.552 Weight last 48 hrs Weight 143 kg Weight 145.5 kg Physical Exam Narrative: General: Patient is intubated and sedated. Head: Normocephalic. Atraumatic. Neck: Elevated JVD. Cardiovascular: No gallops. No murmurs. 2+ pitting edema in bilateral lower extremities, similar to prior exam. Lungs: Breath sounds bilateral bases. Dependent crackles. No rales. Intubated with mechanical ventilation. Skin: No jaundice. No rashes. Abdomen: Hypoactive bowel sounds, abdomen soft. Extremities: No cyanosis or clubbing. Musculoskeletal: No swollen or erythematous joints. Neurological: No myoclonus. Sedated. Urinary Catheter Management: Veras: Cath Placed During This Visit: yes Reason for Continuing Indwelling Catheter: Accurate Measurement of Urinary Output in Critically Ill Patients Urinary Catheter Date of Insertion: 10/15/24 Data 10/17/24 03:43 10/17/24 03:43 Micro: Microbiology 10/15/24 08:30 Gram Stain - Final Sputum - Endotracheal Tube Aspirate Sputum Culture - Preliminary A&P Assessment and plan (1) Congestive heart failure: Qualifiers: Heart failure type: combined systolic and diastolic Heart failure chronicity: acute on chronic Qualified Code(s): I50.43 - Acute on chronic combined systolic (congestive) and diastolic (congestive) heart failure (2) Acute on chronic heart failure with reduced ejection fraction and diastolic dysfunction: (3) Atrial fibrillation with RVR: (4) Morbid obesity: (5) Encephalopathy acute: (6) On home oxygen therapy: (7) Pleural effusion: Plan Acute hypercapnic respiratory failure Acute on chronic complex respiratory failure - Baseline oxygen requirement reportedly around 4 L - Reportedly non-compliant with BiPAP at home prior to admission - Intubated 10/15 - Continue vent management - Fentanyl/propofol for analgesia/sedation - GI/DVT ppx - Given increased FiO2 overnight, out of abundance of caution we will start cefepime - Sputum culture pending, check procalcitonin again - D-dimer slightly elevated, proceed with CT PE to evaluate lung parenchyma and for embolism - Continue treating underlying CHF and COPD - Patient discussed with respiratory therapist - Ongoing vent management Acute diastolic heart failure with preserved ejection fraction - Strict I&Os; net negative - Continue IV diuresis, monitor hemodynamics and electrolytes - Diamox x1 - Optimize heart rate - Cardiology following, patient discussed Dr. Gongora this morning Atrial fibrillation -Pauses noted on telemetry - On sotalol and Cardizem prior to admission - Off amiodarone - Continue apixaban for stroke ppx - Cardiology recommending low-dose metoprolol - Cardiology following Acute COPD exacerbation - Continue systemic steroids - Continue breathing treatments Acute metabolic encephalopathy with CO2 narcosis - Sedated Compensatory metabolic alkalosis - Diamox x1 DVT ppx: Apixaban Code: Full Code PDMP PDMP Reviewed: Not Reviewed Attestations Medical Necessity Statement*: Patient requires ongoing hospitalization for vent management, IV diuresis, telemetry, and supportive care. Critical Care Time: The high probability of a clinically significant, sudden or life threatening deterioration of the patient's cardiopulmonary system(s) required my full and direct attention, intervention and personal management. The critical care time is as shown. This time is in addition to time spent performing any reported procedures but includes the following: [x] Data and vital sign review and interpretation [x] Patient assessment, examination and intervention [x] Documentation [x] Medication orders and management Critical Care Time (min): 35 Coding Level of Care Code Acute Code for Chg Fwd Diagnoses Acute on chronic combined systolic and diastolic congestive heart failure I50.43 Heart failure type: combined systolic and diastolic Heart failure chronicity: acute on chronic Acute on chronic heart failure with reduced ejection fraction and diastolic dysfunction I50.43 Atrial fibrillation with RVR I48.91 Morbid obesity E66.01 Encephalopathy acute G93.40 On home oxygen therapy Z99.81 Pleural effusion J90
[2024-10-17] MEDS: metoprolol tartrate 50 mg Tablet 25 MG OG-TUBE ×2 (12:21→20:43)
[2024-10-17] MEDS: FUROsemide 10 mg/mL SDV 10mL 60 MG IVP ×2 (12:21→17:48)
--- NOTE | 2024-10-17 12:29 | PC.NURSE ---
Delay in administering OG metoprolol due to code 10 and vital parameters.
[2024-10-17 13:11] LABS: Glucose Point of Care 155 mg/dL (70-110)
[2024-10-17 16:30] LABS: Glucose Point of Care 165 mg/dL (70-110)
[2024-10-17] MEDS: fentaNYL 2,500 MCG/250 ML BAG 10 MCG IV (16:56)
[2024-10-17] MEDS: atorvastatin 40 mg Tablet PO (20:43)
[2024-10-17] MEDS: propofol 1,000 MG/100 ML INJ 12.96 MG IV (21:02)
--- NOTE | 2024-10-17 22:22 | PC.NURSE ---
Report given to ambulance crew by bedside, and sister in room at time. Care given to ambulance crew at 2104. Crew packaging patient for transport to [facility] in [place] - [facility] icu at 2150
--- NOTE | 2024-10-18 07:57 | PM.TDS ---
Transfer Summary Providers Date of Admission: 10/15/24 05:14 Date of Discharge/Transfer: 10/18/24 Attending Provider at Admission: Nga Rizvi MD Attending Provider at Transfer: Wilbert Perez Primary Care Provider: Kilo Dunham Transfer Plans: Anticipated date of transfer: 10/18/24. Diagnoses at Discharge Discharge Diagnosis (1) Atrial fibrillation with rapid ventricular response: Status: Acute (2) Hypokalemia: Status: Acute (3) Acute on chronic diastolic (congestive) heart failure: Status: Acute (4) Acute hypoxic on chronic hypercapnic respiratory failure: Status: Acute (5) Obstructive sleep apnea: Status: Acute (6) Morbid obesity: Status: Acute (7) On home oxygen therapy: Status: Acute (8) Encephalopathy acute: Status: Acute (9) Congestive heart failure: Status: Acute Qualifiers: Heart failure type: combined systolic and diastolic Heart failure chronicity: acute on chronic Qualified Code(s): I50.43 - Acute on chronic combined systolic (congestive) and diastolic (congestive) heart failure (10) Pleural effusion: Status: Acute (11) Acute on chronic heart failure with reduced ejection fraction and diastolic dysfunction: Status: Acute Reason for Visit Reason for Visit A Fib RVR Brief History: Colette Hernandez is a 64 year old female with COPD, 4 L oxygen dependent uses BiPAP, noncompliant, D-CHF, A-fib, chronic anticoagulation, morbidly obese, presented to the hospital for worsening shortness of breath. Patient is not able to provide much history as per the ER staff she was sent from home because of worsening of shortness of breath and she has not been using her BiPAP for the last few days. Workup in the ER consistent with A-fib RVR she was put on amiodarone and Cardizem drip because her heart rate was consistently below 150s which was not getting better. At home she takes sotalol and Cardizem. Review of records revealed that patient had similar presentation in July when she was extremely hypercarbic, turned around roughly 2-1/2 hours, she was put on p.o. Cardizem along her sotalol that improved her heart rate. At the time of my evaluation patient able to moan and groan, she opened her eyes but would not make eye contact, she is currently on BiPAP Repeating ABG at the time of my evaluation, I have also requested Veras catheter placement and discontinuation of Cardizem drip and only continuing amiodarone for now blood pressure 115/60 mmHg She is admitted to the ICU Her EF is preserved Chest x-ray showing pulm edema related to CHF exacerbation Troponin without significant delta Hospital Course Hospital Course 64-year-old lady with history of COPD on home oxygen, uses BiPAP with intermittent adherence, diastolic dysfunction, A-fib on anticoagulation, morbid obesity, was admitted after presenting with worsening shortness of breath, on presentation with COPD exacerbation, acute diastolic CHF exacerbation with anasarca, A-fib with RVR. She was reluctant coming into the hospital initially, delaying arrival. With acute hypoxic hypercapnic respiratory distress, was supported initially on BiPAP, started on treatment with IV corticosteroids, breathing treatment, empiric antibiotic coverage with cefepime, IV Lasix, however, without improvement with worsening hypercapnia was intubated for mechanical ventilatory support. Has continued to diuresis coming into negative balance, showing improvement in hypercapnia compared to admission, however, still with elevated oxygen demand, FiO2 requirement 60-75%. Persistent edema on chest x-ray. CTA obtained after mildly abnormal D-dimer, 1.11, without evidence of PE, with shallow inspiration and small bilateral pleural effusion, compressive consolidation in the lung bases. As she is still not been ready for extubation, arrangements made for higher level of care including senior product consultant, and she was currently excepted for further assessment and management of at [facility] in [place]. Sputum culture initially without growth, yesterday afternoon noted growing coag positive staph, urine culture growing more than 100,000 gram-negative rods. Updated [facility] unit where she was transferred. Physical Exam Narrative: Hospital bedside, family at bedside on second visit. Const: GENERAL APPEARANCE: patient mechanically ventilated HENMT: COMMON NORMALS: oropharynx normal Resp: AUSCULTATION: diminished lung sounds bilateral in the lower lung patricia Cardio: COMMON NORMALS: regular rhythm, S1 normal heart sound present, S2 normal heart sound present and No murmurs present (Cardio) RHYTHM: regular rhythm HEART SOUNDS: S1 normal heart sound present and S2 normal heart sound present GI: COMMON NORMALS: Normal to inspection, nondistended, normoactive bowel sounds present, Soft to palpation and non-tender PALPATION: Yes Soft to palpation Extremity: COMMON NORMALS: no joint enlargement GENERAL: Yes edema (2+ up to thighs BL) Skin: COMMON NORMALS: no rashes or lesions noted GENERAL SKIN EXAM: no rashes or lesions noted Urinary Catheter Management: Veras: Cath Placed During This Visit: yes Reason for Continuing Indwelling Catheter: Accurate Measurement of Urinary Output in Critically Ill Patients Urinary Catheter Date of Insertion: 10/15/24 TS Data Studies Completed and Pending Pending at discharge Category Date Time Status Sputum Culture and Gram Stain Routine Lab 10/15/24 08:30 Results Urine Culture Routine Lab 10/17/24 08:00 Received Completed Studies During Hospitalization Category Date Time Status CT PE [CT angio chest PE protcl [id number]] Routine Cat Scan 10/17/24 08:59 Completed CXRP [XR chest 1V portable [id number]] Routine Exams 10/15/24 06:48 Completed CXRP [XR chest 1V portable [id number]] Stat Exams 10/15/24 06:46 Completed XR chest 1V portable [id number] Routine Exams 10/16/24 04:00 Completed XR chest 1V portable [id number] Routine Exams 10/17/24 04:00 Completed XR chest 1V portable [id number] Stat Exams 10/15/24 01:46 Completed Laboratory Last Values WBC 14.82 10^3/uL (3.29-11.43) H 10/17/24 03:43 RBC 3.38 10^6/uL (3.85-5.65) L 10/17/24 03:43 Hgb 9.40 g/dL (11.27-16.99) L 10/17/24 03:43 Hct 33.5 % (36-47) L 10/17/24 03:43 MCV 99.1 fl (85-98) H 10/17/24 03:43 MCH 27.8 pg (27-33) 10/17/24 03:43 MCHC 28.1 g/dL (30-55) L 10/17/24 03:43 RDW 15.9 % (12.1-15.1) H 10/17/24 03:43 Plt Count 284 10^3/cmm (157-399) 10/17/24 03:43 MPV 11.2 fL (7.4-10.4) H 10/17/24 03:43 Neut % (Auto) 90.8 % 10/17/24 03:43 Lymph % (Auto) 3.8 % 10/17/24 03:43 [place] % (Auto) 4.5 % 10/17/24 03:43 Eos % (Auto) 0.0 % 10/17/24 03:43 Baso % (Auto) 0.1 % 10/17/24 03:43 Neut # (Auto) 13.46 10^3/uL (1.8-7.7) H 10/17/24 03:43 Lymph # (Auto) 0.6 10^3/uL (0.8-4.8) L 10/17/24 03:43 [place] # (Auto) 0.7 10^3/uL (0.2-0.9) 10/17/24 03:43 Eos # (Auto) 0.0 10^3/uL (0.0-0.8) 10/17/24 03:43 Baso # (Auto) 0.0 10^3/uL (0.0-0.1) 10/17/24 03:43 Nucleated RBC % (auto) 0 % 10/17/24 03:43 Nucleated RBCs # 0.0 /100WBC 10/17/24 03:43 PT 13.50 SECONDS (12.1-14.9) 10/15/24 01:54 INR 0.96 (0.8-1.2) 10/15/24 01:54 D-Dimer 1.11 ug/mLFEU (0-0.59) H 10/17/24 07:44 Specimen Type Arterial 10/17/24 03:45 Sample Site Radial, left 10/17/24 03:45 ABG pH 7.47 (7.35-7.45) H 10/17/24 03:45 ABG pCO2 67.2 mmHg (35-45) H* 10/17/24 03:45 ABG pO2 58.2 mmHg (80.0-100.0) L 10/17/24 03:45 ABG PO2/FiO2 Ratio 97 10/17/24 03:45 ABG HCO3 48.3 mmol/L (22-26) H 10/17/24 03:45 ABG O2 Saturation 90.7 10/17/24 03:45 ABG Base Excess 21.5 mmol/L (-2.0-2.0) H 10/17/24 03:45 [place] Test Pos 04/10/25 03:45 A-a O2 Gradient 37.7 mmHg (5-10) H 10/17/24 03:45 Hematocrit 29.6 % (37-47) L 10/17/24 03:45 Hgb O2 Saturation 89.6 % (95-100) L 10/17/24 03:45 Carboxyhemoglobin 1.3 %THgb (0.4-20.1) 10/17/24 03:45 Methemoglobin < 0.0 % (0.4-1.5) L 10/17/24 03:45 Total Hemoglobin 9.6 g/dL (12-16) L 10/17/24 03:45 Sodium 143.0 mmol/L (131-143) 10/17/24 03:45 Potassium 2.8 mmol/L (3.5-5.0) L 10/17/24 03:45 Glucose 147.0 mg/dL (70-115) H 10/17/24 03:45 Ionized Calcium 1.2 mmol/L (1.1-1.4) 10/17/24 03:45 O2 Delivery Device Vent 10/17/24 03:45 FiO2 60.0 % 10/17/24 03:45 Tidal Volume 0.35 10/17/24 03:45 PEEP 10.0 cmH20 10/17/24 03:45 Integrated Marketing Specialist ID Ed 10/17/24 03:45 Sodium 143 mmol/L (136-145) 10/17/24 03:43 Potassium 3.0 mmol/L (3.5-5.1) L 10/17/24 03:43 Chloride 92 mmol/L (98-107) L 10/17/24 03:43 Carbon Dioxide 43 mmol/L (22-29) H* 10/17/24 03:43 Anion Gap 11.0 (5-19) 10/17/24 03:43 BUN 24 mg/dL (8-23) H 10/17/24 03:43 Creatinine 0.7 mg/dL (0.5-0.9) 10/17/24 03:43 GFR Calculation 84.5 mL/min (90-130) L 10/17/24 03:43 Glucose 149 mg/dL (65-115) H 10/17/24 03:43 POC Glucose 165 mg/dL (70-110) H 10/17/24 16:27 Calculated Osmolality 302 mOsm/kg (285-295) H 10/16/24 04:55 Calcium 8.7 mg/dL (8.5-10.5) 10/17/24 03:43 Phosphorus 3.0 mg/dL (2.5-4.5) 10/17/24 03:43 Magnesium 2.0 mg/dL (1.7-2.3) 10/17/24 03:43 Total Bilirubin 0.4 mg/dL (0.15-1.2) 10/16/24 04:55 AST 11 U/L (0-32) 10/16/24 04:55 ALT 6 U/L (0-33) 10/16/24 04:55 Alkaline Phosphatase 83 U/L (35-105) 10/16/24 04:55 Troponin T Baseline 16 ng/L (0-10) H 10/15/24 01:54 Troponin T 120 Minute 15.40 ng/L (0-10) H 10/15/24 04:08 Delta Troponin T -0.60 ABS# (0-10) L 10/15/24 04:08 Troponin T Hi Sens 6Hr 14.49 ng/L (0-10) H 10/15/24 08:25 Troponin T Hi Sens 6Hr Delta -1.51 ng/L (0-12) L 10/15/24 08:25 C-Reactive Protein 21.0 mg/L (0.0-4.9) H 10/17/24 03:43 NT-Pro-B Natriuret Pep 5356 pg/mL (0-125) H 10/15/24 04:08 Total Protein 6.2 g/dL (6.6-8.7) L 10/16/24 04:55 Albumin 3.2 g/dL (3.5-5.2) L 10/17/24 03:43 Globulin 3.0 g/dL (1.3-4.6) 10/16/24 04:55 Procalcitonin 0.05 ng/mL (0-0.5) 10/17/24 03:43 Radiology Impressions Chest X-Ray 10/17/24 04:00 IMPRESSION: Imaging findings of pulmonary edema with small bilateral pleural effusions. Pneumonia should be considered in the adequate clinical setting. Chest CTA 10/17/24 08:59 IMPRESSION: 1. No evidence of pulmonary embolus. 2. Shallow inspiration with small bilateral pleural effusions and compressive consolidation in the lung bases Recent Clincial Data Last Vital Signs Temp 97.9 F 10/17/24 21:05 Pulse 97 10/17/24 21:15 Resp 12 10/17/24 21:05 BP 132/69 10/17/24 21:15 Pulse Ox 94 10/17/24 21:15 O2 Del Method Mechanical Ventilation 10/17/24 20:55 O2 Flow Rate 4 10/15/24 02:04 FiO2 75 10/17/24 20:55 Vital Signs Temp Pulse Resp BP Pulse Ox O2 Del Method FiO2 10/17/24 21:15 97 132/69 94 10/17/24 21:05 97.9 F 88 12 132/69 91 10/17/24 21:00 80 153/95 94 10/17/24 20:55 96 12 94 Mechanical Ventilation 75 10/17/24 20:50 12 93 75 10/17/24 20:45 97.7 F 121 H 120/71 91 Mechanical Ventilation 75 10/17/24 20:30 85 111/57 96 10/17/24 20:15 76 16 101/55 91 10/17/24 20:00 73 18 93/54 90 Intake & Output/Weight 10/16/24 10/17/24 10/18/24 10/19/24 06:59 06:59 06:59 06:59 Intake Total 1007.856 / 8104.999 4530.811 / 1156.811 427.729 / 427.729 Output Total 1999 3450 / 3450 2400 / 2400 Balance -992.144 / -992.144 -2293.189 / -2293.189 -1972.271 / -1971.271 Weight 145.5 kg 143 kg Vitals Last Vital Signs Temp 97.9 F 10/17/24 21:05 Pulse 97 10/17/24 21:15 Resp 12 10/17/24 21:05 BP 132/69 10/17/24 21:15 Pulse Ox 94 10/17/24 21:15 O2 Del Method Mechanical Ventilation 10/17/24 20:55 O2 Flow Rate 4 10/15/24 02:04 FiO2 75 10/17/24 20:55 TS Medications Medications Discontinued Medications Acetaminophen (Acetaminophen 500 Mg Tablet) 500 mg PO Q4H PRN PRN Reason: fever Acetazolamide (Acetazolamide 250 Mg Tablet) 250 mg PO DAILY ONE Stop: 10/16/24 08:28 Last Admin: 10/16/24 09:04 Dose: 250 mg Acetazolamide (Acetazolamide 250 Mg Tablet) 250 mg PO DAILY [facility] Last Admin: 10/17/24 09:06 Dose: 250 mg Albuterol/Ipratropium (Ipratropium-Albuterol 3 Ml Neb) 3 ml INHALATION Q6H PRN PRN Reason: SHORTNESS OF BREATH Last Admin: 10/17/24 20:55 Dose: 3 ml Apixaban (Apixaban 5 Mg Tablet) 5 mg PO BID@0900,2100 SARAH Apixaban (Apixaban 5 Mg Tablet) 5 mg OG-TUBE BID@0900,2100 [facility] Last Admin: 10/17/24 20:43 Dose: 5 mg Aspirin (Aspirin 81 Mg Ec Tablet) 81 mg PO DAILY [facility] Last Admin: 10/17/24 09:06 Dose: Not Given Aspirin (Aspirin 81 Mg Chew Tablet) 81 mg PO DAILY [facility] Atorvastatin Calcium (Atorvastatin 40 Mg Tablet) 40 mg PO BEDTIME [facility] Last Admin: 10/17/24 20:43 Dose: 40 mg Cefepime HCl (Cefepime 2,000 Mg Sdv) 2,000 mg IVP Q8H [facility]; Protocol Last Admin: 10/17/24 16:11 Dose: 2,000 mg Chlorhexidine Gluconate (Chlorhexidine Gluconate 4% Btl 118 Ml) 1 applic TOPICAL DAILY PRN PRN Reason: Intubated patient Digoxin (Digoxin 250 Mcg/Ml Inj 2 Ml) 250 mcg IVP NOW ONE Stop: 10/15/24 17:56 Last Admin: 10/15/24 18:11 Dose: 250 mcg Digoxin (Digoxin 250 Mcg/Ml Inj 2 Ml) 250 mcg IVP NOW ONE Stop: 10/16/24 00:01 Last Admin: 10/16/24 00:24 Dose: 250 mcg Diltiazem HCl (Diltiazem 5 Mg/Ml Sdv 5 Ml) 20 mg IVP ONCE ONE Stop: 10/15/24 01:47 Last Admin: 10/15/24 01:52 Dose: 20 mg Diltiazem HCl (Diltiazem Er (24hr) 120 Mg Capsule) 120 mg PO Q24H SARAH Etomidate (Etomidate 2 Mg/Ml Inj Sdv 10 Ml) 30 mg IVP NOW ONE Stop: 10/15/24 06:01 Last Admin: 10/15/24 06:30 Dose: 30 mg Furosemide (Furosemide 10 Mg/Ml Sdv 4ml) 40 mg IVP Q12H SARAH Last Admin: 10/16/24 05:57 Dose: 40 mg Furosemide (Furosemide 10 Mg/Ml Sdv 10ml) 60 mg IVP Q12H SARAH Last Admin: 10/17/24 17:48 Dose: 60 mg Diltiazem HCl 100 mg/ Sodium (Chloride) 100 mls @ 0 mls/hr IV .Q0M SARAH; Protocol Last Titration: 10/15/24 06:06 Dose: 0 mg/hr, 0 mls/hr Amiodarone HCl/Dextrose (Nexterone) 150 mg in 100 mls @ 400 mls/hr IV ONCE ONE Stop: 10/15/24 03:50 Last Infusion: 10/15/24 04:36 Dose: Infused Amiodarone HCl/Dextrose (Nexterone) 360 mg in 200 mls @ 0 mls/hr IV .Q0M SARAH; Protocol Last Titration: 10/16/24 10:58 Dose: Infused Etomidate (Amidate) Confirm Administered Dose 20 mls @ as directed .ROUTE .STK-MED ONE Stop: 10/15/24 06:29 Fentanyl (Sublimaze) 2,500 mcg in 250 mls @ 0 mls/hr IV .Q0M SARAH; Protocol Last Admin: 10/17/24 16:56 Dose: 100 mcg/hr, 10 mls/hr Fentanyl (Sublimaze) Confirm Administered Dose 2,500 mcg in 250 mls @ as directed .ROUTE .STK-MED ONE Stop: 10/15/24 06:41 Propofol (Diprivan) 1,000 mg in 100 mls @ 0 mls/hr IV .Q0M SARAH; Protocol Last Admin: 10/17/24 21:02 Dose: 15 mcg/kg/min, 12.96 mls/hr Iohexol (Iohexol 350 Mg/Ml 500 Ml Btl (Per Ml)) 0 ml IV ONCE ONE Stop: 10/17/24 11:41 Last Admin: 10/17/24 11:41 Dose: 64 ml Methylprednisolone Sodium Succinate (Methylprednisolone Sod Succ 40 Mg/Ml Inj) 30 mg IVP Q12H [facility] Last Admin: 10/15/24 09:54 Dose: 30 mg Methylprednisolone Sodium Succinate (Methylprednisolone Sod Succ 40 Mg/Ml Inj) 40 mg IVP Q6H [facility] Last Admin: 10/17/24 16:11 Dose: 40 mg Metoprolol Tartrate (Metoprolol Tartrate 50 Mg Tablet) 50 mg OG-TUBE BID@0900,2100 [facility] Last Admin: 10/16/24 21:52 Dose: 50 mg Metoprolol Tartrate (Metoprolol Tartrate 50 Mg Tablet) 25 mg OG-TUBE BID@0900,2100 [facility] Last Admin: 10/17/24 20:43 Dose: 25 mg Morphine Sulfate (Morphine 4 Mg/Ml Sdv 1 Ml) 2 mg IVP Q4H PRN PRN Reason: SEVERE PAIN Ondansetron HCl (Ondansetron 2 Mg/Ml Sdv 2 Ml) 4 mg IVP ONCE ONE Stop: 10/15/24 04:19 Last Admin: 10/15/24 04:36 Dose: 4 mg Ondansetron HCl (Ondansetron 2 Mg/Ml Sdv 2 Ml) 4 mg IVP Q6H PRN PRN Reason: NAUSEA AND VOMITING Pantoprazole Sodium (Pantoprazole Dr 40 Mg Tablet) 40 mg PO DAILY [facility] Pantoprazole Sodium (Pantoprazole 40 Mg Sdv) 40 mg IVP Q12H [facility] Last Admin: 10/17/24 20:43 Dose: 40 mg Pharmacy Profile Note (Formulary Ppi) each PO DAILY [facility] Potassium Chloride (Potassium Chloride Er 20 Meq Tablet) 40 meq OG-TUBE DAILY [facility] Last Admin: 10/15/24 09:56 Dose: 40 meq Potassium Chloride (Potassium Chloride Oral Liq 20 Meq/15 Ml Udc) 20 meq NG-TUBE ONCE ONE Stop: 10/16/24 10:50 Last Admin: 10/16/24 11:36 Dose: 20 meq Potassium Chloride (Potassium Chloride Oral Liq 20 Meq/15 Ml Udc) 40 meq PO Q4H [facility] Stop: 10/17/24 11:31 Last Admin: 10/17/24 12:20 Dose: 40 meq Rocuronium [place] (Rocuronium 10 Mg/Ml Inj 5ml) Confirm Administered Dose 150 mg .ROUTE .STK-MED ONE Stop: 10/15/24 06:29 Rocuronium [place] (Rocuronium 10 Mg/Ml Inj 5ml) 150 mg IVP NOW ONE Stop: 10/15/24 06:01 Last Admin: 10/15/24 06:30 Dose: 150 mg Allergies No Known Allergies Allergy (Verified 10/15/24 01:49) Home Medications apixaban 5 mg tablet (Eliquis) 5 mg PO BID@0900,2100 #60 tabs 06/09/23 [Rx Confirmed 10/15/24] atorvastatin 40 mg tablet 40 mg PO BEDTIME #30 tabs 06/10/23 [Rx Confirmed 10/15/24] sotalol 160 mg tablet 160 mg PO Q12H #60 tabs 06/10/23 [Rx Confirmed 10/15/24] fluticasone propionate 115 mcg-salmeterol 21 mcg/actuation HFA inhaler (Advair HFA) 2 puff inhalation Q12H 08/02/24 [History Confirmed 10/15/24] omeprazole 40 mg capsule,delayed release 40 mg PO DAILY 08/02/24 [History Confirmed 10/15/24] aspirin 81 mg tablet,delayed release 81 mg PO DAILY #30 tabs 08/05/24 [Rx Confirmed 10/15/24] bacitracin 500 unit/gram topical ointment 1 applic topical TID #14 grams 08/05/24 [Rx Confirmed 10/15/24] diltiazem HCl 120 mg capsule,extended release 24 hr (Cardizem CD) 120 mg PO Q24H #30 caps 08/05/24 [Rx Confirmed 10/15/24] furosemide 40 mg tablet (Lasix) 40 mg PO DAILY #30 tabs 08/05/24 [Rx Confirmed 10/15/24] acetazolamide 250 mg tablet 250 mg PO .QOD 10/15/24 [History Confirmed 10/15/24] bupropion HCl 200 mg tablet,12 hr sustained-release 200 mg PO BID 10/15/24 [History Confirmed 10/15/24] Discharge Plan Discharge Patient Disposition: Xfer Short-Term Hosp Condition: Stable Prescriptions: No Action Eliquis 5 mg Tablet 5 mg PO BID@0900,2100 Qty: 60 0RF sotalol 160 mg tablet 160 mg PO Q12H Qty: 60 0RF atorvastatin 40 mg tablet 40 mg PO BEDTIME Qty: 30 0RF acetazolamide 250 mg tablet 250 mg PO .QOD bupropion HCl 200 mg tablet sustained-release 12 hr 200 mg PO BID omeprazole 40 mg capsule,delayed release(DR/EC) 40 mg PO DAILY fluticasone propion-salmeterol [Advair HFA] 115-21 mcg/actuation HFA aerosol inhaler 2 puff INHALATION Q12H bacitracin 500 unit/gram Ointment 1 applic topical TID Qty: 14 0RF aspirin 81 mg Tablet,Delayed Release (Dr/Ec) 81 mg PO DAILY Qty: 30 0RF diltiazem HCl [Cardizem CD] 120 mg capsule,extended release 24hr 120 mg PO Q24H Qty: 30 0RF furosemide [Lasix] 40 mg tablet 40 mg PO DAILY Qty: 30 0RF Referrals: Kilo Dunham [Primary Care Provider] - Patient Instructions: Opioid Safety Transfer Attestations Time Spent in Transfer Care: greater than 30 min Status at Transfer: Cognitive status at transfer: cognitively intact; Behavioral status at transfer: cooperative; Quality Metrics Clinical Quality Measures [ No reported AMI, CVA or VTE this stay] Coding Level of Care Code 65716 Total time (in minutes) for Discharge: 55 Diagnoses Atrial fibrillation with rapid ventricular response I48.91 Hypokalemia E87.6 Acute on chronic diastolic (congestive) heart failure I50.33 Acute hypoxic on chronic hypercapnic respiratory failure J96.01; J96.12 Obstructive sleep apnea G47.33 Morbid obesity E66.01 On home oxygen therapy Z99.81 Encephalopathy acute G93.40 Acute on chronic combined systolic and diastolic congestive heart failure I50.43 Heart failure type: combined systolic and diastolic Heart failure chronicity: acute on chronic Pleural effusion J90 Acute on chronic heart failure with reduced ejection fraction and diastolic dysfunction I50.43
--- NOTE | 2024-10-18 15:56 | DCPLANNER ---
RE garding blue pair of house slippers and pearl gown long sleeve found left in room after patients transfer to [facility] called daughter Janene to see if she wanted these items ,were soiled and smelled of urine ,daughter said to dispose of.
== END 2024-10-17 21:05 | disposition short-term general hospital (02) | DRG 208 ==
LOC: ER 03:49 → ICU 05:14
PROVIDERS: Internal Medicine; Admitting Provider Internal Medicine; Emergency Provider Emergency Medicine; PCP Family Medicine; Visit Provider Internal Medicine
DX: J96.22 Acute and chronic respiratory failure with hypercapnia (principal); G93.41 Metabolic encephalopathy; I50.33 Acute on chronic diastolic (congestive) heart failure; J44.1 Chronic obstructive pulmonary disease with (acute) exacerbation; Z68.43 Body mass index [BMI] 50.0-59.9, adult; E87.20 Acidosis, unspecified; J96.21 Acute and chronic respiratory failure with hypoxia; I48.91 Unspecified atrial fibrillation; E87.6 Hypokalemia; G47.33 Obstructive sleep apnea (adult) (pediatric); E66.01 Morbid (severe) obesity due to excess calories; Z99.81 Dependence on supplemental oxygen; Z79.01 Long term (current) use of anticoagulants; Z91.198 Patient's noncompliance with other medical treatment and regimen for other reason; K21.9 Gastro-esophageal reflux disease without esophagitis; E78.5 Hyperlipidemia, unspecified; Z79.82 Long term (current) use of aspirin; B95.8 Unspecified staphylococcus as the cause of diseases classified elsewhere
CPT/HCPCS: 36415; 36416; 36573; 36592; 36600; 51702; 71045; 71275; 80051; 80053; 80069; 82330; 82803; 82805; 82962; 83735; 83880; 84100; 84145; 84484; 85025; 85378; 85610; 86140; 87070; 87077; 87086; 87186; 87205; 93005; 94002; 94003; 94640; 94799; 96365; 96366; 96367; 96375; 96376; 99291; A4222; J0283; J0692; J1160; J1938; J1940; J2405; J2470; J2704; J2919; J3010; J3490; J9999

== ENCOUNTER 2025-04-16 13:35 | Emergency (ER) | payer MEDICARE, SELFPAY ==
[2025-04-16] VITALS (9 sets, daily range): BP systolic 119–143; BP diastolic 77–92; PULSE 117–143; RESP 12–14; O2SAT 100
--- NOTE | 2025-04-16 13:36 | CT_ITS ---
WS: [id number] CTA HEAD AND NECK TECHNIQUE: Contrast enhanced CTA of the head and neck with coronal and sagittal reformatted images and maximum intensity projection (MIP) images. NASCET criteria utilized. CLINICAL INFORMATION: cva COMPARISON: None. DLP: 921.[address] scans at [facility] use at least one of these dose optimization techniques: automated exposure control; mA and/or kV adjustment per patient size (includes targeted exams where dose is matched to clinical indication); or iterative reconstruction. FINDINGS: Some images degraded by beam hardening artifact from shoulder overlap Endotracheal tube. Aortic calcification. Proximal subclavian arteries are patent. Partially visualized pleural effusions with compressive atelectasis. RIGHT: RIGHT common carotid artery is patent. Calcified plaque RIGHT carotid bulb extending into the ICA with approximately 40% narrowing LEFT: Less than 50% LEFT ICA stenosis. INTRACRANIAL CTA: LEFT M1 segment is occluded at the origin with developing infarct in the LEFT MCA territory with early loss of pearl-white differentiation. Normal vascularity to the [place] and RIGHT MCA territory. Normal vascularity to the proximal FRAME CHANGER territory. Basilar artery is patent. Distal vertebral arteries are patent. Vertebral artery origins not well visualized due to artifact. Nodular thyroid. CT/CT angio headneck* [id number]/[id number] IMPRESSION: Some imaging is limited due to appliance artifact and shoulder over lap in the lower neck and thoracic inlet. LEFT M1 segment is occluded at the origin with developing infarct in the LEFT M CA territory with early loss of pearl-white differentiation. Notified Kenneth Rocha MD at 04/16/2025 2:20 PM.
--- NOTE | 2025-04-16 13:36 | CT_ITS ---
WS: [id number] CT HEAD TECHNIQUE: Noncontrast CT of the head obtained from the skullbase to the vertex. CLINICAL INFORMATION: Symptoms of acute stroke COMPARISON: None. DLP: [address] scans [address] [facility] use at least one of these dose optimization techniques: automated exposure control; mA and/or kV adjustment per patient size (includes targeted exams where dose is matched to clinical indication); or iterative reconstruction. FINDINGS: Suggestion of dense LEFT MCA with early loss of pearl-white differentiation LEFT MCA territory. CTA is pending. No hemorrhage. Subacute to early chronic infarcts in the RIGHT frontal parietal junction and RIGHT temporal lobe as well as the RIGHT parasagittal occipital lobe. Ventricular system remains patent. Small chronic lacunar infarct LEFT cerebellum. Paranasal sinuses and mastoid air cells are well aerated. CT/CT head thrombolytic 94305 IMPRESSION: 1. Suggestion of dense LEFT MCA with early loss of pearl-white differentiation in the LEFT MCA territory. CTA is pending. 2. Subacute to chronic appearing infarcts RIGHT frontoparietal junction and RI GHT temporal lobe as well as the parasagittal RIGHT occipital lobe. Notified Kenneth Rocha MD at 04/16/2025 1:51 PM.
--- NOTE | 2025-04-16 13:36 | ECG_ITS ---
[facility] 2025-[facility]16 Pat Name: Colette Hernandez Department: Room: Gender: Female Doctor Assistant: : [id number] Requested By: Kenneth Rocha Order Number: [id number] Reading MD: SHARMILA SHAFFER Measurements Intervals [place] Rate: 159 P: 0 WA: 0 QRS: 62 QRSD: 94 T: 27 QT: 272 QTc: 443 Interpretive Statements ATRIAL FIBRILLATION WITH RAPID VENTRICULAR RESPONSE LOW QRS VOLTAGE IN PRECORDIAL LEADS [QRS DEFLECTION < 1.0 mV IN CHEST LEADS] NONSPECIFIC T-WAVE ABNORMALITY CRITICAL TEST RESULT Compared to ECG 10/15/2024 10:04:33 Low QRS voltage now present T-wave abnormality now present ST (T wave) deviation no longer present Electronically Signed On 04-17-2025 16:50:42 CDT by SHARMILA SHAFFER [email or web address]
--- NOTE | 2025-04-16 13:36 | XR_ITS ---
WS: [id number] Portable AP semiupright chest, 04/16/2025 Clinical Data: intubated Comparison: Portable chest, 10/17/2024 Findings: The endotracheal tube is above the negrita and the nasogastric tube appears to be in the esophagus and probably ending in the stomach. The heart is enlarged. Bilateral pulmonary opacities are present most likely pulmonary edema. Bilateral pleural effusions are present. Monitor leads are on the chest wall. XR/XR chest 1V portable [id number] Impression: 1. Cardiomegaly with pulmonary vascular congestion and bilateral pleural effusi ons most consistent with congestive heart failure. 2. Satisfactory position of endotracheal tube and nasogastric tube.
[2025-04-16] MEDS: iohexol 350 mg/mL 500 mL Btl (per mL) 100 ML IV (13:45)
[2025-04-16] MEDS: propofol 1,000 MG/100 ML INJ 4.08 MG IV (13:47)
--- NOTE | 2025-04-16 13:47 | ED_ITS ---
HPI - Neuro Symptoms/Deficit 2 General: Chief Complaint: Neuro Symptoms/Deficit Stated Complaint: Stroke Alert Time Seen by Provider: 04/16/25 13:36 Source: EMS Mode of arrival: EMS Limitations: altered mental status History of Present Illness: 65-year-old female that EMS had brought for possible stroke. Per EMS was poor historian and was deaf but from what they could gather she was possibly last known normal at 11 then become altered when they arrived she was altered and then woke up and was combative but could not move her right side. He states that due to her being combative and her pulse ox dropped to 70 they innovator. Then given her 100 mg of ketamine along with rocuronium and patient is paralyzed currently not able to do her neuroexam. She does have a history of A-fib is in A-fib with RVR here does take Eliquis. Related Data Home Medications ?Medication ?Instructions ?Recorded ?Confirmed fluticasone propionate 115 2 puff inhalation Q12H 07/1110/15/24 mcg-salmeterol 21 mcg/actuation HFA inhaler (Advair HFA) omeprazole 40 mg capsule,delayed 40 mg PO DAILY 10/15/24 release acetazolamide 250 mg tablet 250 mg PO .QOD 10/15/24 bupropion HCl 200 mg tablet,12 hr 200 mg PO BID 10/15/24 sustained-release Previous Rx's ?Medication ?Instructions ?Recorded apixaban 5 mg tablet (Eliquis) 5 mg PO BID@0900,2100 # 60 tabs 06/09/23 atorvastatin 40 mg tablet 40 mg PO BEDTIME #30 tabs sotalol 160 mg tablet 160 mg PO Q12H #60 tabs 09/01 aspirin 81 mg tablet,delayed 81 mg PO DAILY #30 tabs 0 08/05/24 release bacitracin 500 unit/gram topical 1 applic topical TID #14 grams 08/05/24 ointment diltiazem HCl 120 mg 120 mg PO Q24H #30 caps 07/11 01/31 capsule,extended release 24 hr (Cardizem CD) furosemide 40 mg tablet (Lasix) 40 mg PO DAILY #30 tab s 08/05/24 Allergies Allergy/AdvReac Type Severity Reaction Status Date / Time No Known Allergies Allergy Verified 10/15/24 01:49 Review of Systems 2 General: Reports: ROS unobtainable due to medical condition PFSH ED 2 PFSH: Medical History (Updated 04/16/25 @ 14:43 by Kenneth Rocha MD) Morbid obesity Atrial fibrillation with RVR On home oxygen therapy COPD (chronic obstructive pulmonary disease) Family History Mother Atrial fibrillation Father Heart attack Other CAD (coronary artery disease) Social History Smoking and tobacco/nicotine status: former use of tobacco/nicotine Alcohol intake: never Substance/Drug Use: never Caregiver/support person: Yes Lives independently: Yes Household members: spouse and family Housing: House Marital status: Physical Exam 2 Const: COMMON NORMALS: negative for patient oriented x3 OTHER: intubated HENMT: COMMON NORMALS: normocephalic and atraumatic HEAD & SCALP: n ormocephalic and atraumatic Eye: COMMON NORMALS: conjunctivae normal CONJUNCTIVA: Yes conjunctivae normal Neck/C-Spine: COMMON NORMALS: full ROM and supple Chest: COMMONS NORMALS: normal inspection of the chest Resp: COMMON NORMALS: normal respiratory effort, No retractions, No use of accessory muscles and clear to auscultation bilaterally AUSCULTATION: clear to auscultation bilaterally Cardio: COMMON NORMALS: regular rate, regular rhythm and No murmurs present (Cardio) RATE: regular rate RHYTHM: regular rhythm GI: COMMON NORMALS: Normal to inspection, nondistended, normoactive bowel sounds present, Soft to palpation, non-tender and no masses PALPATION: Yes Soft to palpation Extremity: COMMON NORMALS: normal to inspection Neuro: COMMON NORMALS: negative for patient oriented x3 Psych: COMMON NORMALS: negative for mental status grossly normal Skin: COMMON NORMALS: no rashes or lesions noted and no wounds GENERAL SKIN EXAM: no rashes or lesions noted Course 2 Vital Signs: Vital signs: Vital Signs Pulse Rate 137 H 04/16/25 14:43 Respiratory Rate 13 04/16/25 14:43 Blood Pressure 119/79 04/16/25 14:43 Pulse Oximetry 100 04/16/25 14:43 Oxygen Delivery Me thod Mechanical Ventil ation 04/16/25 14:43 Fraction of Inspir ed Oxygen 100 04/16/25 14:32 MDM - Neuro Symptoms/Deficit Medical Decision Making Patient presents here with concern for CVA. Differential includes subarachnoid hemorrhage subdural hemorrhage, epidural hemorrhage. CT showed no signs of any bleeding. CT did show signs of left-sided stroke with an M1 thrombus. Patient was combative in the field with hypoxia and was intubated and paralyzed in the field was not able to get a neuroexam or an NIH on her due to her being intubated at this time and paralyzed. Unsure of the exact last time normal as was not a good historian. Patient has been stable while here she is not a lytic candidate either due to her being on Eliquis. I did speak to neurologist at [facility] Dr. Burkett who recommended transfer to the ER for diffusion weighted imaging there. I did speak to ER physician there who accepted patient will transfer there by air at this time. I did review her imaging here. EKG here showed A-fib with RVR heart rate [address] elevation QRS 94 QTc 361. Did give her rectal aspirin did start her on amiodarone drip for her heart rate patient was started on propofol and fentanyl for sedation. Patient had no family available Medical Records I reviewed the patient's medical records. Lab Data I reviewed the patient's lab results. 04/16/25 13:44 04/16/25 13:44 Radiology Impressions Chest X-Ray 04/16/25 13:36 Impression: 1. Cardiomegaly with pulmonary vascular congestion and bilateral pleural effusions most consistent with congestive heart failure. 2. Satisfactory position of endotracheal tube and nasogastric tube. Head CT 04/16/25 13:36 IMPRESSION: 1. Suggestion of dense LEFT MCA with early loss of pearl-white differentiation in the LEFT MCA territory. CTA is pending. 2. Subacute to chronic appearing infarcts RIGHT frontoparietal junction and RIGHT temporal lobe as well as the parasagittal RIGHT occipital lobe. Notified Kenneth Rocha MD at 04/16/2025 1:51 PM. Laboratory Results WBC 10.53 10^3/uL (3.29-11.43) 04/16/25 13:44 RBC 3.90 10^6/uL (3.85-5.65) 04/16/25 13:44 Hgb 9.20 g/dL (11.27-16.99) L 04/16/25 13:44 Hct 36.6 % (36-47) 04/16/25 13:44 MCV 93.8 fl (85-98) 04/16/25 13:44 MCH 23.6 pg (27-33) L 04/16/25 13:44 MCHC 25.1 g/dL (30-55) L 04/16/25 13:44 RDW 17.4 % (12.1-15.1) H 04/16/25 13:44 Plt Count 322 10^3/cmm (157-399) 04/16/25 13:44 MPV 11.0 fL (7.4-10.4) H 04/16/25 13:44 Neut % (Auto) 82.2 % 04/16/25 13:44 Lymph % (Auto) 8.3 % 04/16/25 13:44 [place] % (Auto) 8.3 % 04/16/25 13:44 Eos % (Auto) 0.3 % 04/16/25 13:44 Baso % (Auto) 0.3 % 04/16/25 13:44 Neut # (Auto) 8.67 10^3/uL (1.8-7.7) H 04/16/25 13:44 Lymph # (Auto) 0.9 10^3/uL (0.8-4.8) 04/16/25 13:44 [place] # (Auto) 0.9 10^3/uL (0.2-0.9) 04/16/25 13:44 Eos # (Auto) 0.0 10^3/uL (0.0-0.8) 04/16/25 13:44 Baso # (Auto) 0.0 10^3/uL (0.0-0.1) 04/16/25 13:44 Nucleated RBC % (auto) 0 % 04/16/25 13:44 Nucleated RBCs # 0.0 /100WBC 04/16/25 13:44 Sodium 142 mmol/L (136-145) 04/16/25 13:44 Potassium 4.6 mmol/L (3.5-5.1) 04/16/25 13:44 Chloride 95 mmol/L (98-107) L 04/16/25 13:44 Carbon Dioxide 41 mmol/L (22-29) H 04/16/25 13:44 Anion Gap 10.6 (5-19) 04/16/25 13:44 BUN 17 mg/dL (8-23) 04/16/25 13:44 Creatinine 0.6 mg/dL (0.5-0.9) 04/16/25 13:44 GFR Calculation 100.6 mL/min (90-130) 04/16/25 13:44 Glucose 161 mg/dL (65-115) H 04/16/25 13:44 POC Glucose 182 mg/dL (70-110) H 04/16/25 13:42 Calculated Osmolality 299 mOsm/kg (285-295) H 04/16/25 13:44 Calcium 9.2 mg/dL (8.5-10.5) 04/16/25 13:44 Total Bilirubin 0.7 mg/dL (0.15-1.2) 04/16/25 13:44 AST 40 U/L (0-32) H 04/16/25 13:44 ALT 29 U/L (0-33) 04/16/25 13:44 Alkaline Phosphatase 131 U/L (35-105) H 04/16/25 13:44 Total Protein 7.7 g/dL (6.6-8.7) 04/16/25 13:44 Albumin 4.1 g/dL (3.5-5.2) 04/16/25 13:44 Globulin 3.6 g/dL (1.3-4.6) 04/16/25 13:44 All radiology interpretation(s) finalized by discharge EKG Data EKG 1: I personally reviewed and interpreted this EKG as follows: EKG interpretation date: 04/16/25 EKG interpretation time: 13:58 Interpretation: afib hr [address] elevation qrs 94 qtc 361 Critical Care Time 2 Critical Care Time: Critical Care Time: Yes Total Critical Care Time: 45 Attestation: The high probability of a clinically significant, sudden or life threatening deterioration of the patient's neruo system(s) required my full and direct attention, intervention and personal management. The critical care time is as shown. This time is in addition to time spent performing any reported procedures but includes the following: [x] Data and vital sign review and interpretation [x] Patient assessment, examination and intervention [x] Documentation [x] Medication orders and management Discharge Plan Discharge Patient Disposition: Xfer Short-Term Hosp Clinical Impression: Cerebrovascular accident Qualifiers: CVA mechanism: thrombosis Precerebral and cerebral artery: middle cerebral artery Laterality of affected vessel: left Qualified Code(s): I63.312 - Cerebral infarction due to thrombosis of left middle cerebral artery Condition: Stable Referrals: Kilo Dunham [Primary Care Provider, Family Practice] Print Language: Taiwanese Coding Level of Care Code 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
[2025-04-16 13:54] LABS: Hematocrit 36.6 % (36-47); Hemoglobin 9.20 g/dL (11.27-16.99); Mean Corpuscular HGB Conc 25.1 g/dL (30-55); Mean Corpuscular Hemoglobin 23.6 pg (27-33); Mean Corpuscular Volume 93.8 fl (85-98); Nucleated Red Blood Cells % 0 %; Platelet Count 322 10^3/cmm (157-399); Red Blood Count 3.90 10^6/uL (3.85-5.65); White Blood Count 10.53 10^3/uL (3.29-11.43)
[2025-04-16] MEDS: amiodarone 150 MG/100 ML PREMIX 400 MG IV (14:03)
[2025-04-16 14:20] LABS: Alanine Aminotransferase 29 U/L (0-33); Albumin Level 4.1 g/dL (3.5-5.2); Alkaline Phosphatase 131 U/L (35-105); Anion Gap 10.6 (5-19); Aspartate Amino Transferase 40 U/L (0-32); Blood Urea Nitrogen 17 mg/dL (8-23); Calcium 9.2 mg/dL (8.5-10.5); Chloride 95 mmol/L (98-107); Creatinine Clr Calc Pharmacy 132.5365; Globulin 3.6 g/dL (1.3-4.6); Glucose 161 mg/dL (65-115); Osmolality Calculated 299 mOsm/kg (285-295); Potassium 4.6 mmol/L (3.5-5.1); Sodium 142 mmol/L (136-145); Total Protein 7.7 g/dL (6.6-8.7)
[2025-04-16] MEDS: AMIODARONE HCL/D5W 900 MG/500 ML BAG 33.33 MG IV (14:20)
[2025-04-16 14:34] LABS: Carbon Dioxide 41 mmol/L (22-29)
[2025-04-16] MEDS: fentaNYL 1,000 MCG/100 ML BAG 2.5 MCG IV (14:42)
[2025-04-16 14:56] LABS: Glucose Urine UA Negative (Normal); Nitrate Urine Negative (Negative)
[2025-04-16 15:03] LABS: PCP Screen Urine Negative (Negative)
[2025-04-16 15:06] LABS: INR 1.09 (0.8-1.2); Prothrombin Time 14.90 SECONDS (12.1-14.9)
[2025-04-16 15:07] LABS: Partial Thromboplastin Time 26.8 SECONDS (23.9-36.7)
--- NOTE | 2025-04-16 15:16 | PC.NURSE ---
report given to Carmina Dominguez RN. no further questions at end of report.
[2025-04-16 15:19] LABS: Add Urine Microscopic? YES; Specific Gravity, Urine 1.085 (1.005-1.030)
--- NOTE | 2025-04-16 15:29 | PC.PHAR ---
Pt unable to verify her medications. Pharmacy gave last fill dates-most of which are old. Documented in pharmacy notes.
--- NOTE | 2025-04-16 15:35 | PC.NURSE ---
pt attempting to pull at IV/tube, ED provider notified; verbal order for bilateral wrist soft restraints
[2025-04-16 15:43] LABS: NT Pro B Type Natriuretic Pept 8235 pg/mL (0-125)
[2025-04-16 16:01] LABS: ABG PH Result 7.32 (7.35-7.45); Arterial Blood Gas Hematocrit 28.4 % (37-47); Blood Gas LPM 100.0 %; Blood Gas Operator Identificat GD; Blood Gas Sample Site Brachial, right; Blood Gas Sample Type Arterial; Blood Gas Tidal Volume 0.40; Carboxyhemoglobin 1.4 %THgb (0.4-20.1); Glucose Level-ABG 138.0 mg/dL (70-115); HCO3 ABG 41.9 mmol/L (22-26); Ionized Calcium Level - ABG 1.2 mmol/L (1.1-1.4); Methemoglobin 1.0 % (0.4-1.5); Oxygen Saturation ABG 99.2; PEEP 8.0 cmH20; PO2 ABG 122.0 mmHg (80.0-100.0); Potassium Level - ABG 4.2 mmol/L (3.5-5.0); Sodium Level - ABG 144.0 mmol/L (131-143)
[2025-04-16 16:02] LABS: ABG PCO2 80.9 mmHg (35-45)
--- NOTE | 2025-04-16 16:31 | PC.NURSE ---
[facility] d/c propofol and fentanyl infusion; continued Amiodarone. full bag upon departure.
== END 2025-04-16 16:34 | disposition short-term general hospital (02) ==
PROVIDERS: Emergency Provider Emergency Medicine; PCP Family Medicine
DX: I63.312 Cerebral infarction due to thrombosis of left middle cerebral artery (principal); Z87.891 Personal history of nicotine dependence; J44.9 Chronic obstructive pulmonary disease, unspecified
CPT/HCPCS: 36415; 36416; 36600; 51702; 70450; 70496; 70498; 71045; 80051; 80053; 80306; 81001; 82330; 82805; 82962; 83880; 85025; 85610; 85730; 87070; 87205; 93005; 94640; 94799; 96365; 96366; 96367; 99291; A4222; J0282; J0283; J2704; J3010; J9999